=== PATIENT | male | born 1980 | race Hispanic/Latino ===

== ENCOUNTER 2016-12-21 21:43 | Inpatient (IN) | payer MEDICAID, OTHER ==
[2016-12-21 21:43] VITALS: BMI 20.3
--- NOTE | 2016-12-21 23:49 | C.PDOC ---
History Of Present Illness Patient, with a past medical history of anxiety, asthma, bipolar disorder, personality disorder, depression, and schizophrenia, presents to the ED complaining of suicidal ideation. Patient reports he used heroin today. He also admits to drinking 2 pints of alcohol prior to arrival. Patient denies chest pain, shortness of breath, nausea, or vomiting. Time Seen by Provider: 12/21/16 23:49 Chief Complaint (Nursing): Psychiatric Evaluation History Per: Patient History/Exam Limitations: intoxication Onset/Duration Of Symptoms: Other Current Symptoms Are (Timing): Still Present Suicide/Self Injury Attempted (Context): None Modifying Factor(s): Alcohol, Other (heroin) Severity: None Pain Scale Rating Of: 0 Associated Symptoms: Suicidal Thoughts Recent travel outside of the [place]: No Additional History Per: Patient Past Medical History Reviewed: Historical Data, Nursing Documentation, Vital Signs Vital Signs: Last Vital Signs Temp 98.1 F 12/22/16 12:43 Pulse 76 12/22/16 16:22 Resp 20 12/22/16 12:43 BP 116/76 12/22/16 16:22 Pulse Ox 95 12/22/16 12:43 - Medical History PMH: Anxiety, Asthma, Bipolar Disorder, Depression (with suicide attempt since childhood (attempted hanging)), Personality Disorder, Schizophrenia - [facility] Procedures ALCOHOL DETOXIFICATION (10/04/13) APPLICATION OF SPLINT (07/30/14) DETOXIFICATION SERVICES FOR SUBSTANCE ABUSE TREATMENT (08/11/16) GROUP APPLICATIONS SALES REPRESENTATIVE FOR SUBSTANCE ABUSE TREATMENT, PSYCHOEDUCATION (08/19/15) IMMOBILIZ/WOUND ATTN NEC (07/05/14) INDIVID PSYCHOTHERAP NEC (04/06/13) INJECT ANTIBIOTIC (05/20/05) INJECT/INFUSE NEC (12/18/14) OTHER GROUP THERAPY (04/06/13) PSYCHIA INTERV/EVAL NEC (06/27/14) PSYCHIAT DRUG THERAP NEC (09/29/12) Family History: States: No Known Family Hx - Social History Hx Tobacco Use: Yes Hx Alcohol Use: Yes Hx Substance Use: Yes - Immunization History Hx Tetanus Toxoid Vaccination: No Hx Influenza Vaccination: No Hx Pneumococcal Vaccination: No Review Of Systems Cardiovascular: Negative for: Chest Pain Respiratory: Negative for: Shortness of Breath Gastrointestinal: Negative for: Nausea, Vomiting Psych: Positive for: Suicidal ideation Physical Exam - Physical Exam Appears: Non-toxic, No Acute Distress Skin: Warm, Dry Head: Atraumatic, Normacephalic Neck: Supple Chest: Symmetrical Cardiovascular: Rhythm Regular Back: Normal Inspection Extremity: Normal ROM ED Course And Treatment - Laboratory Results Result Diagrams: 12/22/16 00:46 12/22/16 00:46 ECG: Interpreted By Me, Viewed By Me ECG Rhythm: Sinus Rhythm (94), Nonspecific Changes O2 Sat by Pulse Oximetry: 97 (room air) Pulse Ox Interpretation: Normal - Radiology CXR: Interpreted by Me, Viewed By Me CXR Interpretation: No: Infiltrates, Fracture, Pnemothorax Progress Note: Patient medically cleared for transfer to psychiatric facility Disposition Counseled Patient/Family Regarding: Studies Performed, Diagnosis - Disposition Disposition: HOSPITALIZED Disposition Time: 23:49 Condition: FAIR - Clinical Impression Clinical Impression: Alcohol abuse, Depression - Scribe Statement The provider has reviewed the documentation as recorded by the Scribe Melba Wilson Provider Attestation: All medical record entries made by the Scribe were at my direction and personally dictated by me. I have reviewed the chart and agree that the record accurately reflects my personal performance of the history, physical exam, medical decision making, and the department course for this patient. I have also personally directed, reviewed, and agree with the discharge instructions and disposition. Physician Patient Turnover Patient Signed Over To: Noman Jackson DO Handoff Comments: pending disposition/bed
[2016-12-22 00:54] LABS: BASO # 0.1 K/uL (0.0-0.2); BASO % 0.7 % (0.0-2.0); EOS % 0.4 % (0.0-4.0); HEMATOCRIT 46.7 % (35.0-51.0); LYMPH # 2.3 K/uL (1.0-4.3); LYMPH % 16.9 % (20.0-40.0); MEAN CELL VOLUME 96.9 fL (80.0-94.0); MEAN CORPUSCULAR HEMOGLOBIN 31.8 pg (27.0-31.0); MEAN CORPUSCULAR HGB CONC 32.8 g/dL (33.0-37.0); MEAN PLATELET VOLUME 7.3 fL (7.2-11.7); MONO # 0.9 K/uL (0.0-0.8); MONO % 6.9 % (0.0-10.0); RED CELL DISTRIBUTION WIDTH 15.2 % (11.5-14.5); WHITE BLOOD COUNT 13.7 K/uL (4.8-10.8)
[2016-12-22 01:06] LABS: CHLORIDE 100 mmol/L (98-107); POTASSIUM 3.9 mmol/L (3.6-5.2); SODIUM 142 mmol/L (132-148)
[2016-12-22 01:08] LABS: BILIRUBIN,TOTAL 0.2 mg/dL (0.2-1.3); CARBON DIOXIDE 27 mmol/L (22-30); GFR AFRICAN-AMERICAN > 60
[2016-12-22 01:09] LABS: ALB/GLOB RATIO 1.6 (1.0-2.1); ALKALINE PHOSPHATASE 61 U/L (38-126); ALT/SGPT 24 U/L (21-72); AST/SGOT 32 U/L (17-59); BLOOD UREA NITROGEN 17 mg/dL (9-20); CALCIUM 8.5 mg/dl (8.6-10.4); GLUCOSE,RANDOM 85 mg/dL (75-110); TOTAL PROTEIN 7.7 g/dL (6.3-8.3)
[2016-12-22 01:10] LABS: ALCOHOL SERUM 188 mg/dl (0-10)
[2016-12-22 03:47] LABS: RBC URINE 1 /hpf (0-3); URINE BILIRUBIN NEGATIVE (NEGATIVE); URINE BLOOD NEGATIVE (NEGATIVE); URINE COLOR Yellow (YELLOW); URINE GLUCOSE (UA) NORMAL (Normal); URINE KETONE TRACE mg/dL (NEGATIVE); URINE LEUKOCYTE ESTERASE NEG Leu/uL (Negative); URINE PROTEIN NEGATIVE (NEGATIVE); URINE UROBILINOGEN NORMAL mg/dL (0.2-1.0); WBC URINE 1 /hpf (0-5)
--- NOTE | 2016-12-22 09:43 | RAD ---
HISTORY: psych clearance COMPARISON: No prior. FINDINGS: LUNGS: No active pulmonary disease. PLEURA: No significant pleural effusion identified, no pneumothorax apparent. CARDIOVASCULAR: Normal. OSSEOUS STRUCTURES: No significant abnormalities. VISUALIZED UPPER ABDOMEN: Normal. OTHER FINDINGS: None. IMPRESSION: No active disease.
[2016-12-23] MEDS: Multiple Vitamins Tab PO SCH (09:53)
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
[2016-12-24] MEDS: Multiple Vitamins Tab PO SCH (10:20)
--- NOTE | 2016-12-24 13:03 | PCM.PYCHPN ---
Psychiatric Progress Note - Psychiatric Progress Note Patient seen today, length of contact: 15 min Patient Chief Complaint: I'm still feeling depressed Problems Identified/Issues Discussed: Patient seen and evaluated, chart reviewed and discussed with the nurse. As per the staff, patient still appears isolated, depressed and withdrawn. Patient still reports depressed mood and reports at times feelings of hopelessness or helplessness. He reports withdrawal symptoms including cramps, back pain, legs pain, nausea and sweating. He is asking for pain medications for the leg pain. He denies any auditory or visual hallucinations or any psychotic symptoms. Supportive therapy and psychoeducation were given. Medication Change: Yes (Start gabapentin) Medical Record Reviewed: Yes Mental Status Examination - Cognitive Function Orientation: Person, Place, Situation, Time Memory: Intact Attention: WNL Concentration: Poor Association: WNL Fund of Knowledge: Poor - Mood Mood: Depressed, Anxious - Affect Affect: Constricted, Depressed - Speech Speech: Soft - Formal Thought Process Formal Thought Process: No Impairment - Suicidal Ideation Suicidal Ideation: No - Homicidal Ideation Homicidal Ideation: No Goal/Treatment Plan - Goal/Treatment Plan Need for Continued Stay: Discharge may exacerbated symptoms, Severe functional impairment Progress Toward Problem(s) and Goals/Treatment Plan: Bipolar 1 disorder most recent episode depressed severe without psychotic features CBT Psychoeducation Supportive therapy, group therapy, individual therapy Paxil 10 mg by mouth daily Trazodone 50 mg by mouth daily at bedtime Gabapentin 100 mg by mouth 3 times a day Alcohol use disorder severe CBT Psychoeducation Supportive therapy, individual therapy Use [place] for abstinence Alcohol withdrawal uncomplicated CBT Psychoeducation Supportive therapy, individual therapy Librium when necessary Librium taper Folic acid/thiamine/multivitamin Opiate use disorder severe CBT Psychoeducation Supportive therapy, individual therapy Use [place] for abstinence Opioid withdrawal CBT Psychoeducation Supportive therapy, individual therapy Clonidine when necessary Methadone taper - Smoking Cessation Smoking Cessation Initiated: No
[2016-12-25] MEDS: Multiple Vitamins Tab PO SCH (09:46)
--- NOTE | 2016-12-25 10:32 | PCM.PYCHPN ---
Psychiatric Progress Note - Psychiatric Progress Note Patient seen today, length of contact: 15 min Patient Chief Complaint: I'm still feeling depressed Problems Identified/Issues Discussed: Patient is seen and evaluated. Chart reviewed and discussed with the nurse. Pt reports improved mood since yesterday. He reports feeling anxious on having less structure in his life after discharge. He also says that Neurontin has helped with his leg cramps and that his quality of sleep has improved and says that his appetite improved. Patient states that his detox symptoms have resolved requests to have his Librium and methadone discontinued by Wednesday. Patient denies suicidal and homicidal ideation, visual or auditory hallucinations or persecutory delusions. Patient will be going to an inpatient rehabilitation facility after discharge. He denies any medication side effects. Supportive therapy and psychoeducation were given. Medication Change: Yes (Increase gabapentin) Medical Record Reviewed: Yes Mental Status Examination - Cognitive Function Orientation: Person, Place, Situation, Time Memory: Intact Attention: WNL Concentration: Poor Association: WNL Fund of Knowledge: Poor - Mood Mood: Depressed, Anxious - Affect Affect: Constricted, Depressed - Speech Speech: Soft - Formal Thought Process Formal Thought Process: No Impairment - Suicidal Ideation Suicidal Ideation: No - Homicidal Ideation Homicidal Ideation: No Goal/Treatment Plan - Goal/Treatment Plan Need for Continued Stay: Discharge may exacerbated symptoms, Severe functional impairment Progress Toward Problem(s) and Goals/Treatment Plan: Bipolar 1 disorder most recent episode depressed severe without psychotic features CBT Psychoeducation Supportive therapy, group therapy, individual therapy Paxil 10 mg by mouth daily Trazodone 50 mg by mouth daily at bedtime Gabapentin 300 mg by mouth 3 times a day Alcohol use disorder severe CBT Psychoeducation Supportive therapy, individual therapy Use [place] for abstinence Alcohol withdrawal uncomplicated CBT Psychoeducation Supportive therapy, individual therapy Librium when necessary Librium taper Folic acid/thiamine/multivitamin Opiate use disorder severe CBT Psychoeducation Supportive therapy, individual therapy Use [place] for abstinence Opioid withdrawal CBT Psychoeducation Supportive therapy, individual therapy Clonidine when necessary Methadone taper
[2016-12-26 07:41] VITALS: BP 106/70; PULSE 65; RESP 20; TEMP 97.4; O2SAT 99
[2016-12-26] MEDS: Multiple Vitamins Tab PO SCH (09:12)
--- NOTE | 2017-01-07 13:09 | CARD ---
APPROVED REPORT EKG Measurement Heart [id number] <Conclusion> Normal sinus rhythm Normal ECG
== END 2016-12-26 13:00 | disposition home or self-care (01) | DRG 430 ==
LOC: C.ER 21:43 → C.9E 12-22 09:42 → C.5E 12-22 12:37
PROVIDERS: ADMIT Psychiatry & Neurology Psychiatry; ATTEND Psychiatry & Neurology Psychiatry
PROC: GZ3ZZZZ Medication Management (ICD-10-PCS; principal; 2016-12-22)
PROC: HZ91ZZZ Pharmacotherapy for Substance Abuse Treatment, Methadone Maintenance (ICD-10-PCS; 2016-12-22)
PROC: HZ96ZZZ Pharmacotherapy for Substance Abuse Treatment, Clonidine (ICD-10-PCS; 2016-12-22)
PROC: HZ99ZZZ Pharmacotherapy for Substance Abuse Treatment, Other Replacement Medication (ICD-10-PCS; 2016-12-22)
PROC: GZHZZZZ Group Psychotherapy (ICD-10-PCS; 2016-12-22)
PROC: GZ56ZZZ Individual Psychotherapy, Supportive (ICD-10-PCS; 2016-12-22)
DX: F31.4 Bipolar disorder, current episode depressed, severe, without psychotic features (principal); F11.20 Opioid dependence, uncomplicated; R45.851 Suicidal ideations; F10.230 Alcohol dependence with withdrawal, uncomplicated; F11.23 Opioid dependence with withdrawal; F14.10 Cocaine abuse, uncomplicated; F10.220 Alcohol dependence with intoxication, uncomplicated; Y90.6 Blood alcohol level of 120-199 mg/100 ml; F17.210 Nicotine dependence, cigarettes, uncomplicated; J45.909 Unspecified asthma, uncomplicated; F90.9 Attention-deficit hyperactivity disorder, unspecified type; Z91.5 Personal history of self-harm; Z59.0 Homelessness

== ENCOUNTER 2017-01-16 11:51 | Inpatient (IN) | payer MEDICAID, OTHER ==
[2017-01-16 11:52] VITALS: BMI 20.3
--- NOTE | 2017-01-16 12:01 | C.PDOC ---
History Of Present Illness 36 y/o male transferred to ED from [facility] for psychiatric admission. Pt was medically cleared at [facility], and accepted for transfer by our gerontological nurse practitioner psychiatrist. Patient complains of feeling depressed, and has suicidal ideation without specific plan. Patient has no physical complaints. Time Seen by Provider: 01/16/17 11:52 History Per: Patient History/Exam Limitations: no limitations Onset/Duration Of Symptoms: Gradual Current Symptoms Are (Timing): Still Present Suicide/Self Injury Attempted (Context): None Modifying Factor(s): None Associated Symptoms: Depression, Suicidal Thoughts Involuntary Hold By: Emergency Physician Past Medical History Reviewed: Historical Data, Nursing Documentation, Vital Signs Vital Signs: Last Vital Signs Temp 97.7 F 01/22/17 10:00 Pulse 78 01/22/17 10:00 Resp 18 01/22/17 10:00 BP 100/68 01/22/17 10:00 Pulse Ox 95 01/16/17 12:03 - Medical History PMH: Anxiety, Asthma, Bipolar Disorder, Depression (with suicide attempt since childhood (attempted hanging)), Hepatitis (C), Personality Disorder, Schizophrenia - [facility] Procedures ALCOHOL DETOXIFICATION (10/04/13) APPLICATION OF SPLINT (07/30/14) DETOXIFICATION SERVICES FOR SUBSTANCE ABUSE TREATMENT (08/11/16) GROUP FILTERING MACHINE TENDER HELPER FOR SUBSTANCE ABUSE TREATMENT, PSYCHOEDUCATION (08/19/15) GROUP PSYCHOTHERAPY (12/22/16) IMMOBILIZ/WOUND ATTN NEC (07/05/14) INDIVID PSYCHOTHERAP NEC (04/06/13) INDIVIDUAL PSYCHOTHERAPY, SUPPORTIVE (12/22/16) INJECT ANTIBIOTIC (05/20/05) INJECT/INFUSE NEC (12/18/14) MEDICATION MANAGEMENT (12/22/16) OTHER GROUP THERAPY (04/06/13) PHARMACOTHERAPY FOR SUBSTANCE ABUSE TREATMENT, CLONIDINE (12/22/16) PHARMACOTHERAPY FOR SUBSTANCE ABUSE, METHADONE MAINT (12/22/16) PHARMACOTHERAPY FOR SUBSTANCE ABUSE, OTH REPLACE MED (12/22/16) PSYCHIA INTERV/EVAL NEC (06/27/14) PSYCHIAT DRUG THERAP NEC (09/29/12) Family History: States: No Known Family Hx - Social History Hx Tobacco Use: Yes Hx Alcohol Use: Yes Hx Substance Use: Yes - Immunization History Hx Tetanus Toxoid Vaccination: No Hx Influenza Vaccination: No Hx Pneumococcal Vaccination: No Review Of Systems Except As Marked, All Systems Reviewed And Found Negative. Constitutional: Negative for: Fever, Chills Cardiovascular: Negative for: Chest Pain, Palpitations Respiratory: Negative for: Cough, Shortness of Breath Gastrointestinal: Negative for: Nausea, Vomiting, Abdominal Pain, Diarrhea Neurological: Negative for: Headache, Dizziness Psych: Positive for: Depression, Suicidal ideation Physical Exam - Physical Exam Appears: Well, Non-toxic, No Acute Distress Skin: Normal Color, Warm, Dry Head: Normacephalic Eye(s): bilateral: Normal Inspection Oral Mucosa: Moist Cardiovascular: Rhythm Regular Respiratory: Normal Breath Sounds, No Rales, No Rhonchi, No Wheezing Gastrointestinal/Abdominal: Normal Exam, Bowel Sounds, Soft, No Tenderness Extremity: Normal ROM Neurological/Psych: Oriented x3 ED Course And Treatment O2 Sat by Pulse Oximetry: 95 (RA) Pulse Ox Interpretation: Normal Progress Note: Patient admitted under Dr. Bates' service for depression. Disposition - Disposition Disposition: HOSPITALIZED Disposition Time: 12:01 Condition: STABLE - Clinical Impression Clinical Impression: Depression - Scribe Statement The provider has reviewed the documentation as recorded by the Symone Wilson Provider Attestation: All medical record entries made by the Symone were at my direction and personally dictated by me. I have reviewed the chart and agree that the record accurately reflects my personal performance of the history, physical exam, medical decision making, and the department course for this patient. I have also personally directed, reviewed, and agree with the discharge instructions and disposition. Decision To Admit - Pt Status Changed To: Hospital Disposition Of: Inpatient - Admit Certification Admit to Inpatient:: After my assessment, the patient will require hospitalization for at least two midnights. This is because of the severity of symptoms shown, intensity of services needed, and/or the medical risk in this patient being treated as an outpatient. - InPatient: Physician Admission Certification: I certify that this patient requires 2 or more midnights of care for the following reason:: see notes - . Bed Request Type: Psychiatry Admitting Physician: Anne Marie Bates Patient Diagnosis: Depression
[2017-01-16 12:04] VITALS: O2SAT 95
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
--- NOTE | 2017-01-18 10:02 | PCM.PYCHPN ---
Psychiatric Progress Note - Psychiatric Progress Note Patient seen today, length of contact: 16 min Patient Chief Complaint: I was feeling depressed and irritable Problems Identified/Issues Discussed: Patient seen and evaluated, chart reviewed and discussed with the nurse. Patient reports irritable and agitated mood. He reports withdrawal symptoms including nausea, headaches, cramps and sweating. He reports depressed mood and at times feelings of hopelessness and helplessness. He is taking medication and denied any side effects. Supportive therapy and psychoeducation were given. Medication Change: Yes (Librium taper, methadone taper) Medical Record Reviewed: Yes Mental Status Examination - Cognitive Function Orientation: Person, Place, Situation, Time Memory: Intact Attention: WNL Concentration: Poor Association: WNL Fund of Knowledge: Poor - Mood Mood: Depressed, Anxious - Affect Affect: Constricted - Speech Speech: Soft - Formal Thought Process Formal Thought Process: No Impairment - Suicidal Ideation Suicidal Ideation: No - Homicidal Ideation Homicidal Ideation: No Goal/Treatment Plan - Goal/Treatment Plan Need for Continued Stay: Discharge may exacerbated symptoms, Severe functional impairment Progress Toward Problem(s) and Goals/Treatment Plan: Bipolar 1 disorder most recent episode mixed severe without psychotic features CBT Psychoeducation Supportive therapy, group therapy, individual therapy Sertraline 50 mg by mouth daily Seroquel 50 mg by mouth HS Gabapentin 100 mg PO TID Trazodone 50 mg PO QHS Alcohol use disorder severe CBT Psychoeducation Supportive therapy, individual therapy Use [place] for abstinence Alcohol withdrawal uncomplicated CBT Psychoeducation Supportive therapy, individual therapy Librium when necessary Librium taper Folic acid/thiamine/multivitamin Opiate use disorder severe CBT Psychoeducation Supportive therapy, individual therapy Use [place] for abstinence Opioid withdrawal CBT Psychoeducation Supportive therapy, individual therapy Clonidine when necessary Methadone taper - Smoking Cessation Smoking Cessation Initiated: No
[2017-01-19] MEDS ORDERED: Pneumococcal 23-Valent Vaccine IM ONE (10:00)
--- NOTE | 2017-01-19 10:31 | PCM.PYCHPN ---
Psychiatric Progress Note - Psychiatric Progress Note Patient seen today, length of contact: 16 min Patient Chief Complaint: I was feeling depressed Problems Identified/Issues Discussed: Patient seen and evaluated, chart reviewed and discussed with the nurse. As per staff patient remained irritable and agitated. He reports anxiety and irritability. He still reports withdrawal symptoms including headaches, cramps and sweating. He reports that he wants to change himself and wants to go to an inpatient rehabilitation after discharge. He is taking medication and denied any side effects. Supportive therapy and psychoeducation were given. Medication Change: Yes (Librium taper, methadone taper, start trileptal) Medical Record Reviewed: Yes Mental Status Examination - Cognitive Function Orientation: Person, Place, Situation, Time Memory: Intact Attention: WNL Concentration: Poor Association: WNL Fund of Knowledge: Poor - Mood Mood: Depressed, Anxious - Affect Affect: Constricted - Speech Speech: Soft - Formal Thought Process Formal Thought Process: No Impairment - Suicidal Ideation Suicidal Ideation: No - Homicidal Ideation Homicidal Ideation: No Goal/Treatment Plan - Goal/Treatment Plan Need for Continued Stay: Discharge may exacerbated symptoms, Severe functional impairment Progress Toward Problem(s) and Goals/Treatment Plan: Bipolar 1 disorder most recent episode mixed severe without psychotic features CBT Psychoeducation Supportive therapy, group therapy, individual therapy d/c Sertraline 50 mg by mouth daily Seroquel 50 mg by mouth HS Gabapentin 100 mg PO TID Trazodone 50 mg PO QHS Start Trileptal 150 mg by mouth twice a day Alcohol use disorder severe CBT Psychoeducation Supportive therapy, individual therapy Use [place] for abstinence Alcohol withdrawal uncomplicated CBT Psychoeducation Supportive therapy, individual therapy Librium when necessary Librium taper Folic acid/thiamine/multivitamin Opiate use disorder severe CBT Psychoeducation Supportive therapy, individual therapy Use [place] for abstinence Opioid withdrawal CBT Psychoeducation Supportive therapy, individual therapy Clonidine when necessary Methadone taper - Smoking Cessation Smoking Cessation Initiated: No
--- NOTE | 2017-01-20 14:10 | PCM.PYCHPN ---
Psychiatric Progress Note - Psychiatric Progress Note Patient seen today, length of contact: 16 min Patient Chief Complaint: I was feeling depressed Problems Identified/Issues Discussed: Patient seen and evaluated, chart reviewed and discussed with the nurse. As per staff patient remained irritable and agitated. He reports anxiety and irritability. He still reports withdrawal symptoms including headaches, cramps and sweating. He reports that he wants to change himself and wants to go to an inpatient rehabilitation after discharge. He is taking medication and denied any side effects. Supportive therapy and psychoeducation were given. Medication Change: Yes (Librium taper, methadone taper, start trileptal) Medical Record Reviewed: Yes Mental Status Examination - Cognitive Function Orientation: Person, Place, Situation, Time Memory: Intact Attention: WNL Concentration: Poor Association: WNL Fund of Knowledge: Poor - Mood Mood: Depressed, Anxious - Affect Affect: Constricted - Speech Speech: Soft - Formal Thought Process Formal Thought Process: No Impairment - Suicidal Ideation Suicidal Ideation: No - Homicidal Ideation Homicidal Ideation: No Goal/Treatment Plan - Goal/Treatment Plan Need for Continued Stay: Discharge may exacerbated symptoms, Severe functional impairment Progress Toward Problem(s) and Goals/Treatment Plan: Bipolar 1 disorder most recent episode mixed severe without psychotic features CBT Psychoeducation Supportive therapy, group therapy, individual therapy d/c Sertraline 50 mg by mouth daily Seroquel 50 mg by mouth HS Gabapentin 100 mg PO TID Trazodone 50 mg PO QHS Start Trileptal 150 mg by mouth twice a day Alcohol use disorder severe CBT Psychoeducation Supportive therapy, individual therapy Use [place] for abstinence Alcohol withdrawal uncomplicated CBT Psychoeducation Supportive therapy, individual therapy Librium when necessary Librium taper Folic acid/thiamine/multivitamin Opiate use disorder severe CBT Psychoeducation Supportive therapy, individual therapy Use [place] for abstinence Opioid withdrawal CBT Psychoeducation Supportive therapy, individual therapy Clonidine when necessary Methadone taper
[2017-01-20] MEDS ORDERED: DiphenhydrAMINE 50 mg/ml Inj IM PRN (17:11)
--- NOTE | 2017-01-21 10:18 | PCM.PYCHPN ---
Psychiatric Progress Note - Psychiatric Progress Note Patient seen today, length of contact: 16 min Patient Chief Complaint: "I'm not too good. I'm hearing voices." Problems Identified/Issues Discussed: Patient seen and evaluated today, chart reviewed and discussed with the nurse. Patient states that he started hearing voices yesterday to harm himself. "They were telling me to punch a hole in the light and then touch the inside with wet fingers." Patient denies any homicidal ideation. Patient states he is still feeling anxious, but denies depression. Patient states that despite feeling anxious, he is ready to be discharged tomorrow to [facility]. He is taking medications and denies any side effects. Medication Change: Yes (start haldol, methadone taper, increase trileptal) Medical Record Reviewed: Yes Mental Status Examination - Cognitive Function Orientation: Person, Place, Situation, Time Memory: Intact Attention: WNL Concentration: Poor Association: WNL Fund of Knowledge: Poor - Mood Mood: Depressed, Anxious - Affect Affect: Constricted - Speech Speech: Soft - Formal Thought Process Formal Thought Process: Hallucinations, Paranoia, Flight of ideas - Suicidal Ideation Suicidal Ideation: No - Homicidal Ideation Homicidal Ideation: No Goal/Treatment Plan - Goal/Treatment Plan Need for Continued Stay: Discharge may exacerbated symptoms, Severe functional impairment Progress Toward Problem(s) and Goals/Treatment Plan: Bipolar 1 disorder most recent episode mixed severe without psychotic features CBT Psychoeducation Supportive therapy, group therapy, individual therapy Haldol 5 mg PO BID Seroquel 50 mg by mouth HS d/c Gabapentin 100 mg PO TID Trazodone 50 mg PO QHS Increase Trileptal 00 mg by mouth twice a day Alcohol use disorder severe CBT Psychoeducation Supportive therapy, individual therapy Use [place] for abstinence Alcohol withdrawal uncomplicated CBT Psychoeducation Supportive therapy, individual therapy Librium when necessary Librium taper Folic acid/thiamine/multivitamin Opiate use disorder severe CBT Psychoeducation Supportive therapy, individual therapy Use [place] for abstinence Opioid withdrawal CBT Psychoeducation Supportive therapy, individual therapy Clonidine when necessary Methadone taper - Smoking Cessation Smoking Cessation Initiated: Yes
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
[2017-01-22 14:08] VITALS: BP 100/68; PULSE 78; RESP 18; TEMP 97.7
== END 2017-01-22 12:10 | disposition home or self-care (01) | DRG 430 ==
LOC: C.ER 11:51 → C.5E 12:01
PROVIDERS: ADMIT Psychiatry & Neurology Psychiatry; ATTEND Psychiatry & Neurology Psychiatry
DX: F31.63 Bipolar disorder, current episode mixed, severe, without psychotic features (principal); R45.851 Suicidal ideations; F11.23 Opioid dependence with withdrawal; F10.239 Alcohol dependence with withdrawal, unspecified; F17.210 Nicotine dependence, cigarettes, uncomplicated; Z62.810 Personal history of physical and sexual abuse in childhood; Z59.0 Homelessness; Z91.5 Personal history of self-harm; Z62.22 Institutional upbringing

== ENCOUNTER 2017-07-28 12:19 | Emergency (ER) | payer MEDICAID, OTHER ==
[2017-07-28 12:19] VITALS: BMI 22.9
[2017-07-28 13:08] LABS: BASO % 0.5 % (0.0-2.0); EOS % 0.5 % (0.0-4.0); HEMATOCRIT 39.1 % (35.0-51.0); LYMPH # 1.2 K/uL (1.0-4.3); LYMPH % 18.1 % (20.0-40.0); MEAN CELL VOLUME 94.2 fL (80.0-94.0); MEAN CORPUSCULAR HEMOGLOBIN 31.8 pg (27.0-31.0); MEAN CORPUSCULAR HGB CONC 33.8 g/dL (33.0-37.0); MEAN PLATELET VOLUME 7.4 fL (7.2-11.7); MONO # 0.5 K/uL (0.0-0.8); MONO % 6.9 % (0.0-10.0); RED CELL DISTRIBUTION WIDTH 16.1 % (11.5-14.5); WHITE BLOOD COUNT 6.6 K/uL (4.8-10.8)
[2017-07-28 13:12] LABS: RBC URINE < 1 /hpf (0-3); URINE BILIRUBIN NEGATIVE (NEGATIVE); URINE BLOOD NEGATIVE (NEGATIVE); URINE COLOR Colorless (YELLOW); URINE GLUCOSE (UA) NORMAL (Normal); URINE KETONE NEGATIVE (NEGATIVE); URINE LEUKOCYTE ESTERASE NEG Leu/uL (Negative); URINE PROTEIN NEGATIVE (NEGATIVE); URINE UROBILINOGEN NORMAL mg/dL (0.2-1.0); WBC URINE < 1 /hpf (0-5)
[2017-07-28 13:40] LABS: ALB/GLOB RATIO 1.2 (1.0-2.1); ALKALINE PHOSPHATASE 75 U/L (38-126); ALT/SGPT 63 U/L (21-72); AST/SGOT 47 U/L (17-59); BILIRUBIN,TOTAL 0.4 mg/dL (0.2-1.3); BLOOD UREA NITROGEN 8 mg/dL (9-20); CALCIUM 8.2 mg/dl (8.6-10.4); CARBON DIOXIDE 26 mmol/L (22-30); CHLORIDE 103 mmol/L (98-107); GFR AFRICAN-AMERICAN > 60; GLUCOSE,RANDOM 109 mg/dL (75-110); POTASSIUM 3.2 mmol/L (3.6-5.2); SODIUM 135 mmol/L (132-148); TOTAL PROTEIN 7.3 g/dL (6.3-8.3)
--- NOTE | 2017-07-28 14:18 | C.PDOC ---
History Of Present Illness 37 y/o male, with PMHx of schizophrenia, bipolar disorder, anxiety (non- compliant with meds) is brought to ED by significant other for substance abuse. Pt admits to drinking alcohol prior to arrival. Pt has been seen several times at other ED's including [facility] for alcohol intoxication. Denies SI, HI , or any active physical complaints at this time. Time Seen by Provider: 07/28/17 12:45 Chief Complaint (Nursing): Substance Abuse History Per: Patient History/Exam Limitations: no limitations Past Medical History Reviewed: Historical Data, Nursing Documentation, Vital Signs Vital Signs: Last Vital Signs Temp 97.7 F 07/28/17 16:52 Pulse 92 H 07/28/17 16:52 Resp 16 07/28/17 16:52 BP 121/69 07/28/17 16:52 Pulse Ox 95 07/28/17 16:52 - Medical History PMH: Anxiety, Asthma, Bipolar Disorder, Bronchitis, Depression (with suicide attempt since childhood (attempted hanging)), Personality Disorder, Schizophrenia Denies: Diabetes, Hepatitis, HIV, HTN, Chronic Kidney Disease, Seizures, Sexually Transmitted Disease - [facility] Procedures ALCOHOL DETOXIFICATION (10/04/13) APPLICATION OF SPLINT (07/30/14) DETOXIFICATION SERVICES FOR SUBSTANCE ABUSE TREATMENT (08/11/16) GROUP FIELD NATURALIST FOR SUBSTANCE ABUSE TREATMENT, PSYCHOEDUCATION (08/19/15) GROUP PSYCHOTHERAPY (02/13/17) IMMOBILIZ/WOUND ATTN NEC (07/05/14) INDIVID PSYCHOTHERAP NEC (04/06/13) INDIVIDUAL PSYCHOTHERAPY, SUPPORTIVE (12/22/16) INJECT ANTIBIOTIC (05/20/05) INJECT/INFUSE NEC (12/18/14) MEDICATION MANAGEMENT (12/22/16) OTHER GROUP THERAPY (04/06/13) PHARMACOTHERAPY FOR SUBSTANCE ABUSE TREATMENT, CLONIDINE (12/22/16) PHARMACOTHERAPY FOR SUBSTANCE ABUSE, METHADONE MAINT (12/22/16) PHARMACOTHERAPY FOR SUBSTANCE ABUSE, OTH REPLACE MED (12/22/16) PSYCHIA INTERV/EVAL NEC (06/27/14) PSYCHIAT DRUG THERAP NEC (09/29/12) Family History: States: Unknown Family Hx - Social History Hx Tobacco Use: Yes Hx Alcohol Use: Yes (ETOH) Hx Substance Use: Yes - Immunization History Hx Tetanus Toxoid Vaccination: No Hx Influenza Vaccination: No Hx Pneumococcal Vaccination: No Review Of Systems Except As Marked, All Systems Reviewed And Found Negative. Constitutional: Negative for: Fever, Chills Cardiovascular: Negative for: Chest Pain, Palpitations Respiratory: Negative for: Shortness of Breath Physical Exam - Physical Exam Appears: Non-toxic, No Acute Distress, Other (thin male with multiple tattos, EtOH on breath) Skin: Normal Color, Warm, Dry Head: Atraumatic, Normacephalic Eye(s): bilateral: Normal Inspection Cardiovascular: Rhythm Regular, No Murmur Respiratory: Normal Breath Sounds, No Rales, No Rhonchi, No Wheezing Gastrointestinal/Abdominal: Soft, No Tenderness Extremity: Normal ROM Neurological/Psych: Oriented x3, Normal Speech ED Course And Treatment - Laboratory Results Result Diagrams: 07/28/17 13:02 07/28/17 13:02 Lab Interpretation: Abnormal (etoh 329) O2 Sat by Pulse Oximetry: 97 Pulse Ox Interpretation: Normal Progress Note: Blood work, UA ordered and reviewed. Librium 50 mg x 2, though pt increasingly agitated, disruptive, argumentative, and adamantly refuses psych eval and admission. d/w Crisis, no detox beds available and as pt not SI/ HI, pt is not appropriate for psych inpt eval. Extensive failed attempts for pt to stay for inpt eval, even Medical, pt adamantly refuses. Reevaluation Time: 18:11 Medical Decision Making Medical Decision Making: persistent alcoholism Undertreated Schizo/Bipolar (?) refuses tx/meds. Disposition Doctor Will See Patient In The: Office Counseled Patient/Family Regarding: Studies Performed, Diagnosis - Disposition Disposition: HOME/ ROUTINE Disposition Time: 18:14 Condition: GOOD Forms: [facility] ([place]) - Clinical Impression Clinical Impression: Alcohol abuse - Scribe Statement The provider has reviewed the documentation as recorded by the Scribe Asad Wilson All medical record entries made by the Scribe were at my direction and personally dictated by me. I have reviewed the chart and agree that the record accurately reflects my personal performance of the history, physical exam, medical decision making, and the department course for this patient. I have also personally directed, reviewed, and agree with the discharge instructions and disposition.
[2017-07-28 14:38] LABS: ALCOHOL SERUM 329 mg/dl (0-10)
[2017-07-28 16:52] VITALS: BP 121/69; PULSE 92; RESP 16; TEMP 97.7
[2017-07-28 18:14] VITALS: O2SAT 97
== END 2017-07-28 18:16 | disposition home or self-care (01) ==
LOC: C.ER 12:19
DX: F10.10 Alcohol abuse, uncomplicated (principal); Y90.8 Blood alcohol level of 240 mg/100 ml or more

== ENCOUNTER 2017-12-26 11:37 | Emergency (ER) | payer OTHER ==
[2017-12-26 11:37] VITALS: BMI 19.9
[2017-12-26 12:30] LABS: BASO % 0.6 % (0.0-2.0); EOS # 0.1 K/uL (0.0-0.7); EOS % 0.9 % (0.0-4.0); HEMOGLOBIN 17.8 g/dL (12.0-18.0); LYMPH # 2.6 K/uL (1.0-4.3); LYMPH % 40.6 % (20.0-40.0); MEAN CELL VOLUME 94.7 fL (80.0-94.0); MEAN CORPUSCULAR HEMOGLOBIN 33.1 pg (27.0-31.0); MEAN CORPUSCULAR HGB CONC 34.9 g/dL (33.0-37.0); MEAN PLATELET VOLUME 7.2 fL (7.2-11.7); MONO # 0.5 K/uL (0.0-0.8); MONO % 7.9 % (0.0-10.0); NEUT # 3.2 K/uL (1.8-7.0); NRBC % 0.1 % (0.0-2.0); RBC 5.38 Mil/uL (4.40-5.90); RED CELL DISTRIBUTION WIDTH 15.6 % (11.5-14.5); WHITE BLOOD COUNT 6.3 K/uL (4.8-10.8)
[2017-12-26 12:44] LABS: ALB/GLOB RATIO 1.2 (1.0-2.1); ALT/SGPT 14 U/L (21-72); AST/SGOT 21 U/L (17-59); BLOOD UREA NITROGEN 6 mg/dL (9-20); CALCIUM 9.3 mg/dl (8.6-10.4); GFR AFRICAN-AMERICAN > 60; GFR NON-AFRICAN AMERICAN > 60
[2017-12-26 12:51] LABS: URINE BILIRUBIN NEGATIVE (NEGATIVE); URINE BLOOD NEGATIVE (NEGATIVE); URINE CLARITY Hazy (Clear); URINE COLOR Yellow (YELLOW); URINE GLUCOSE (UA) NORMAL (Normal); URINE LEUKOCYTE ESTERASE NEG Leu/uL (Negative); URINE PROTEIN NEGATIVE (NEGATIVE); URINE UROBILINOGEN NORMAL mg/dL (0.2-1.0)
[2017-12-26 12:58] LABS: BARBITURATES, UR NEGATIVE (NEGATIVE); BENZODIAZEPINES, UR NEGATIVE (NEGATIVE); OPIATES, UR NEGATIVE (NEGATIVE); PHENCYCLIDINE, UR NEGATIVE (NEGATIVE)
[2017-12-26 13:33] LABS: ACETAMINOPHEN < 10.0 ug/mL (10.0-30.0); SALICYLATE < 1.0 mg/dL 1
--- NOTE | 2017-12-26 14:41 | C.PDOC ---
History Of Present Illness 37-year-old male, presents to the emergency department with complaints of suicidal ideation. Patient states he took 20-30 tabs of Klonopin last night in an attempt to commit suicide. States "life isn't fair." Patient notes he drinks occasionally, and smokes Marijuana. Denies vomiting/fever, chest pain, shortness of breath, rashes, or any other associated symptoms. No other complaints at this time. Time Seen by Provider: 12/26/17 12:14 Chief Complaint (Nursing): Psychiatric Evaluation History Per: Patient History/Exam Limitations: no limitations Past Medical History Reviewed: Historical Data, Nursing Documentation, Vital Signs Vital Signs: Last Vital Signs Temp 97.4 F L 12/26/17 11:51 Pulse 88 12/26/17 18:12 Resp 18 12/26/17 18:12 BP 129/81 12/26/17 18:12 Pulse Ox 98 12/26/17 18:43 - Medical History PMH: Anxiety, Asthma, Bipolar Disorder, Bronchitis, Depression (with suicide attempt since childhood (attempted hanging)), Personality Disorder, Schizophrenia - [facility] Procedures ALCOHOL DETOXIFICATION (10/04/13) APPLICATION OF SPLINT (07/30/14) DETOXIFICATION SERVICES FOR SUBSTANCE ABUSE TREATMENT (08/11/16) GROUP [place] FOR SUBSTANCE ABUSE TREATMENT, PSYCHOEDUCATION (08/19/15) GROUP PSYCHOTHERAPY (02/13/17) IMMOBILIZ/WOUND ATTN NEC (07/05/14) INDIVID PSYCHOTHERAP NEC (04/06/13) INDIVIDUAL PSYCHOTHERAPY, SUPPORTIVE (12/22/16) INJECT ANTIBIOTIC (05/20/05) INJECT/INFUSE NEC (12/18/14) MEDICATION MANAGEMENT (12/22/16) OTHER GROUP THERAPY (04/06/13) PHARMACOTHERAPY FOR SUBSTANCE ABUSE TREATMENT, CLONIDINE (12/22/16) PHARMACOTHERAPY FOR SUBSTANCE ABUSE, METHADONE MAINT (12/22/16) PHARMACOTHERAPY FOR SUBSTANCE ABUSE, OTH REPLACE MED (12/22/16) PSYCHIA INTERV/EVAL NEC (06/27/14) PSYCHIAT DRUG THERAP NEC (09/29/12) Family History: States: No Known Family Hx - Social History Hx Tobacco Use: Yes Hx Alcohol Use: Yes (ETOH) Hx Substance Use: Yes - Immunization History Hx Tetanus Toxoid Vaccination: No Hx Influenza Vaccination: No Hx Pneumococcal Vaccination: No Review Of Systems Constitutional: Negative for: Fever Cardiovascular: Negative for: Chest Pain, Palpitations Respiratory: Negative for: Shortness of Breath Gastrointestinal: Negative for: Nausea, Vomiting, Abdominal Pain, Diarrhea Musculoskeletal: Negative for: Back Pain Physical Exam - Physical Exam Appears: Non-toxic, No Acute Distress Skin: Normal Color, Warm, Dry, No Rash Head: Normacephalic Eye(s): bilateral: PERRL Nose: Normal Oral Mucosa: Moist Lips: Normal Appearing Neck: Normal ROM Chest: Symmetrical Cardiovascular: Rhythm Regular, No Murmur Respiratory: Normal Breath Sounds, No Accessory Muscle Use Gastrointestinal/Abdominal: Soft, No Tenderness Extremity: Normal ROM, No Deformity, No Swelling Neurological/Psych: Oriented x3, Normal Speech ED Course And Treatment - Laboratory Results Result Diagrams: 12/26/17 12:25 12/26/17 12:25 ECG: Interpreted By Me, Viewed By Me ECG Rhythm: Sinus Rhythm (Normal intervals. Normal axis) ECG Interpretation: No Acute Changes Rate From EC O2 Sat by Pulse Oximetry: 98 (RA) Pulse Ox Interpretation: Normal - Radiology CXR: Interpreted by Me, Viewed By Me CXR Interpretation: Yes: No Acute Disease Medical Decision Making Medical Decision Making: Plan: * Labs * UDS * UA * Reassess and Disposition Medically cleared for crisis evaluation Disposition Discussed With : shey - Disposition Disposition: Trans to Other Acute Care Hosp Disposition Time: 19:00 Condition: FAIR Forms: [facility] (Greek) - Clinical Impression Clinical Impression: Depression - Scribe Statement The provider has reviewed the documentation as recorded by the Scribe (Gabby Reis) All medical record entries made by the Scribe were at my direction and personally dictated by me. I have reviewed the chart and agree that the record accurately reflects my personal performance of the history, physical exam, medical decision making, and the department course for this patient. I have also personally directed, reviewed, and agree with the discharge instructions and disposition. Physician Patient Turnover Patient Signed Over To: Mario Abraham Handoff Comments: pending transfer
--- NOTE | 2017-12-26 17:12 | RAD ---
HISTORY: Crisis COMPARISON: Comparison chest 12/22/2016 FINDINGS: LUNGS: No focal consolidation. . Questionable mild fibrosis/ upper lobe versus artifact related to costal cartilage 1st rib PLEURA: No significant pleural effusion identified, no pneumothorax apparent. CARDIOVASCULAR: Normal. OSSEOUS STRUCTURES: No significant abnormalities. VISUALIZED UPPER ABDOMEN: Normal. OTHER FINDINGS: None. IMPRESSION: No acute consolidation. Questionable fibrosis -scarring right upper lobe versus artifact related to costal cartilage 1st rib
[2017-12-26 18:13] VITALS: RESP 18
[2017-12-26 19:06] VITALS: BP 130/76; PULSE 92; TEMP 98.1; O2SAT 97
--- NOTE | 2017-12-29 08:45 | CARD ---
APPROVED REPORT EKG Measurement Heart [id number] <Conclusion> Normal sinus rhythm Incomplete right bundle branch block Borderline ECG
== END 2017-12-26 19:39 | disposition short-term general hospital (02) ==
LOC: C.ER 11:37
DX: F32.9 Major depressive disorder, single episode, unspecified (principal)

== ENCOUNTER 2018-01-09 22:51 | Inpatient (IN) | payer MEDICAID, OTHER ==
[2018-01-09 22:51] VITALS: BMI 21.7
[2018-01-09 23:23] LABS: BASO % 0.7 % (0.0-2.0); EOS # 0.1 K/uL (0.0-0.7); EOS % 2.2 % (0.0-4.0); HEMOGLOBIN 13.2 g/dL (12.0-18.0); LYMPH % 30.3 % (20.0-40.0); MEAN CELL VOLUME 94.9 fL (80.0-94.0); MEAN CORPUSCULAR HEMOGLOBIN 33.2 pg (27.0-31.0); MEAN PLATELET VOLUME 7.2 fL (7.2-11.7); MONO # 0.9 K/uL (0.0-0.8); MONO % 13.8 % (0.0-10.0); NEUT # 3.5 K/uL (1.8-7.0); RBC 3.98 Mil/uL (4.40-5.90); RED CELL DISTRIBUTION WIDTH 15.4 % (11.5-14.5); WHITE BLOOD COUNT 6.6 K/uL (4.8-10.8)
--- NOTE | 2018-01-09 23:23 | C.PDOC ---
History Of Present Illness 37 y/o male presents to ED for complaints of trying to kill himself by drug overdose. Patient states he is "depressed because it is mother's day and he does not have a mother". Patient states he took many medications including seroquel, wellbutrin, vistaril, remeron, and gabapentin about half an hour ago. Patient reports he has depression and tried to kill himself in the past by over dosing. Time Seen by Provider: 01/09/18 23:05 Chief Complaint (Nursing): Psychiatric Evaluation History Per: Patient History/Exam Limitations: no limitations Onset/Duration Of Symptoms: Mins (30) Current Symptoms Are (Timing): Still Present Suicide/Self Injury Attempted (Context): None Modifying Factor(s): Other (seroquel, wellbutrin, vistaril, remeron, and gabapentin) Severity: None Associated Symptoms: Suicidal Thoughts Involuntary Hold By: None Recent travel outside of the [place]: No Past Medical History Reviewed: Historical Data, Nursing Documentation, Vital Signs Vital Signs: Last Vital Signs Temp 98.3 F 01/09/18 23:07 Pulse 116 H 01/09/18 23:57 Resp 20 01/09/18 23:57 BP 116/65 01/09/18 23:57 Pulse Ox 98 01/09/18 23:57 - Medical History PMH: Anxiety, Asthma, Bipolar Disorder, Bronchitis, Depression (with suicide attempt since childhood (attempted hanging)), Personality Disorder, Schizophrenia - [facility] Procedures ALCOHOL DETOXIFICATION (10/04/13) APPLICATION OF SPLINT (07/30/14) DETOXIFICATION SERVICES FOR SUBSTANCE ABUSE TREATMENT (08/11/16) GROUP FREIGHT CAR CLE[employer]ER FOR SUBSTANCE ABUSE TREATMENT, PSYCHOEDUCATION (08/19/15) GROUP PSYCHOTHERAPY (02/13/17) IMMOBILIZ/WOUND ATTN NEC (07/05/14) INDIVID PSYCHOTHERAP NEC (04/06/13) INDIVIDUAL PSYCHOTHERAPY, SUPPORTIVE (12/22/16) INJECT ANTIBIOTIC (05/20/05) INJECT/INFUSE NEC (12/18/14) MEDICATION MANAGEMENT (12/26/17) OTHER GROUP THERAPY (04/06/13) PHARMACOTHERAPY FOR SUBSTANCE ABUSE TREATMENT, CLONIDINE (12/22/16) PHARMACOTHERAPY FOR SUBSTANCE ABUSE, METHADONE MAINT (12/22/16) PHARMACOTHERAPY FOR SUBSTANCE ABUSE, OTH REPLACE MED (12/22/16) PSYCHIA INTERV/EVAL NEC (06/27/14) PSYCHIAT DRUG THERAP NEC (09/29/12) Family History: States: Unknown Family Hx - Social History Hx Tobacco Use: Yes Hx Alcohol Use: Yes Hx Substance Use: Yes - Immunization History Hx Tetanus Toxoid Vaccination: No Hx Influenza Vaccination: No Hx Pneumococcal Vaccination: No Review Of Systems Constitutional: Negative for: Fever, Chills Cardiovascular: Negative for: Chest Pain Gastrointestinal: Negative for: Nausea, Vomiting, Abdominal Pain, Diarrhea Skin: Negative for: Rash Neurological: Negative for: Weakness, Numbness Psych: Positive for: Depression, Suicidal ideation Physical Exam - Physical Exam Appears: Non-toxic, Other (lethargic; Slurred speech ) Skin: Warm, Dry Head: Normacephalic Eye(s): bilateral: Normal Inspection, PERRL, EOMI Oral Mucosa: Moist Neck: Supple Chest: Symmetrical, No Tenderness Cardiovascular: Rhythm Regular (Tachycardic) Respiratory: Normal Breath Sounds, No Decreased Breath Sounds, No Rales, No Rhonchi, No Wheezing Gastrointestinal/Abdominal: Soft, No Tenderness, No Distention, No Guarding, No Rebound Extremity: Normal ROM, No Pedal Edema, No Deformity Extremity: Bilateral: Normal Color And Temperature, Normal ROM Neurological/Psych: Oriented x3, No Normal Speech, No Normal Cognition, Normal Motor, Normal Sensation, Slow To Respond With Command Gait: Unsteady ED Course And Treatment - Laboratory Results Result Diagrams: 01/09/18 23:17 01/09/18 23:17 Lab Interpretation: No Acute Changes ECG: Interpreted By Mt ECG Rhythm: Sinus Rhythm, R BBB (incomplete), Nonspecific Changes (QTc 476) ECG Interpretation: No Acute Changes O2 Sat by Pulse Oximetry: 93 (RA) Pulse Ox Interpretation: Abnormal Progress Note: Case discussed with Poison Control. Patient to be monitored and supported with IV fluids. End Tidal CO2 monitoring initiated. - Physician Consult Information Outcome Of Conversation: Case discussed with Dr Park. Patient to be admitted to ICU for monitoring. Medical Decision Making Medical Decision Making: Ordered Blood work and Urinalysis. Called Poison Control and crisis is notified. EKG: - Normal sinus rhythm at 89 bpm - Incomplete RBBB Disposition - Disposition Disposition: HOSPITALIZED Disposition Time: 00:17 Condition: CRITICAL - POA Present On Arrival: None - Clinical Impression Clinical Impression: Alcohol intoxication, Suicide attempt by drug ingestion - Scribe Statement The provider has reviewed the documentation as recorded by the Scribe Hoang Alexander All medical record entries made by the Scribe were at my direction and personally dictated by me. I have reviewed the chart and agree that the record accurately reflects my personal performance of the history, physical exam, medical decision making, and the department course for this patient. I have also personally directed, reviewed, and agree with the discharge instructions and disposition.
[2018-01-09 23:33] LABS: ACETAMINOPHEN < 10.0 ug/mL (10.0-30.0); SALICYLATE < 1.0 mg/dL 1
[2018-01-09 23:38] LABS: ALB/GLOB RATIO 1.3 (1.0-2.1); ALBUMIN 4.1 g/dL (3.5-5.0); ALT/SGPT 45 U/L (21-72); AST/SGOT 69 U/L (17-59); BLOOD UREA NITROGEN 8 mg/dL (9-20); CALCIUM 8.6 mg/dl (8.6-10.4); GFR AFRICAN-AMERICAN > 60; GFR NON-AFRICAN AMERICAN > 60
[2018-01-09] MEDS ORDERED: Sodium Chloride 0.9% 1,000 ML ONE (23:41)
[2018-01-09] MEDS ORDERED: Sodium Chloride 0.9% 1,000 ML IV ONE (23:45)
[2018-01-09 23:47] LABS: URINE BILIRUBIN NEGATIVE (NEGATIVE); URINE BLOOD NEGATIVE (NEGATIVE); URINE CLARITY Clear (Clear); URINE COLOR Yellow (YELLOW); URINE GLUCOSE (UA) NORMAL (Normal); URINE LEUKOCYTE ESTERASE NEG Leu/uL (Negative); URINE PROTEIN NEGATIVE (NEGATIVE); URINE UROBILINOGEN NORMAL mg/dL (0.2-1.0)
--- NOTE | 2018-01-09 23:51 | CP.PCM.HP ---
<Damari Tamayo - Last Filed: 01/10/18 00:38> History of Present Illness - History of Present Illness History of Present Illness: H&P: 37 year old male with past medical history of manic depression, bipolar, ADHA, astigmatisum presented to ED after a suicidal attempt about 1/2 before coming in. Patient states he took a bunch of pills at home including seroquel, wellbutrin, vistaril remeron and gabapentin. Patient is currently unresponsive and unable to give a hx. History is obtained from chart. Patient was brought in via ambulance for SI. On presentation, he was A&ox3 and responding to questions spontaneously. Patient stated he was depressed because it is Mother' s Day and he does not have a mother. Patient has had multiple suicidal attempts in the past. ROS unobtainable due to mental status. PMHx: stated above Surg: denied All: ASA SH: Admits to 1.5 ppd tobacco use, marijuana, and binge alcohol use FHx: non-contributory Meds: Vistaril 50 mg po q8, Wellbutrin 100 mg po BID, Seroquel 300 mg po AMHS, Remeron 45 mg po HS, Motrin 600 mg po q6, Neurontin 800 mg po QD, Tylenol 650 mg po q4 prn Present on Admission - Present on Admission Any Indicators Present on Admission: No Review of Systems - Review of Systems Systems not reviewed;Unavailable: Altered Mental Status Past Patient History - Infectious Disease Hx of Infectious Diseases: None - Tetanus Immunizations Tetanus Immunization: Up to Date, Unknown - Past Medical History & Family History Past Medical History?: No - Past Social History Smoking Status: Heavy Smoker > 10 Cigarettes Daily - CARDIAC Hx Hypertension: No - PULMONARY Hx Asthma: Yes Hx Bronchitis: Yes - NEUROLOGICAL Hx Seizures: No - HEENT Hx HEENT Problems: No - RENAL Hx Chronic Kidney Disease: No - ENDOCRINE/METABOLIC Hx Endocrine Disorders: No - HEMATOLOGICAL/ONCOLOGICAL Hx Human Immunodeficiency Virus (HIV): No - INTEGUMENTARY Hx Dermatological Problems: No - MUSCULOSKELETAL/RHEUMATOLOGICAL Hx Musculoskeletal Disorders: Yes Hx Falls: Yes Other/Comment: SCIATICA - GASTROINTESTINAL Hx Gastrointestinal Disorders: No - GENITOURINARY/GYNECOLOGICAL Hx Sexually Transmitted Disorders: No - PSYCHIATRIC Hx Anxiety: Yes Hx Bipolar Disorder: Yes Hx Depression: Yes (with suicide attempt since childhood (attempted hanging)) Hx Schizophrenia: Yes Hx Substance Use: Yes - SURGICAL HISTORY Other/Comment: tendon repair (right arm) - ANESTHESIA Hx Anesthesia: Yes Hx Anesthesia Reactions: No Meds Allergies/Adverse Reactions: Allergies Allergy/AdvReac Type Severity Reaction Status Date / Time aspirin Allergy RASH Verified 01/09/18 23:05 weed pollen Allergy RASH Verified 01/09/18 23:05 Physical Exam - Constitutional Appears: No Acute Distress - Head Exam Head Exam: ATRAUMATIC, NORMOCEPHALIC - Eye Exam Additional comments: pinpoint pupils - Respiratory Exam Respiratory Exam: Clear to Auscultation Bilateral. absent: Accessory Muscle Use , Rales, Rhonchi, Wheezes, Respiratory Distress - Cardiovascular Exam Cardiovascular Exam: Tachycardia, REGULAR RHYTHM, +S1, +S2 - GI/Abdominal Exam GI & Abdominal Exam: Hypoactive Bowel Sounds, Soft. absent: Distended, Rigid - Extremities Exam Extremities exam: Negative for: pedal edema - Neurological Exam Additional comments: unresponsive to painful stimuli. GCS of 3. - Skin Skin Exam: Dry, Intact, Normal Color, Warm Results - Vital Signs Recent Vital Signs: Last Vital Signs Temp 98.3 F 01/09/18 23:07 Pulse 103 H 01/09/18 23:07 Resp 24 01/09/18 23:07 BP 123/74 01/09/18 23:07 Pulse Ox 93 L 01/09/18 23:28 - Labs Result Diagrams: 01/09/18 23:17 01/09/18 23:17 Labs: Laboratory Results - last 24 hr 01/09/18 01/09/18 01/09/18 23:17 23:17 23:17 WBC 6.6 RBC 3.98 L Hgb 13.2 D Hct 37.7 MCV 94.9 H MCH 33.2 H MCHC 35.0 RDW 15.4 H Plt Count 279 MPV 7.2 Neut % (Auto) 53.0 Lymph % (Auto) 30.3 [place] % (Auto) 13.8 H Eos % (Auto) 2.2 Baso % (Auto) 0.7 Neut # (Auto) 3.5 Lymph # (Auto) 2.0 [place] # (Auto) 0.9 H Eos # (Auto) 0.1 Baso # (Auto) 0.0 Sodium 149 H Potassium 3.4 L Chloride 106 Carbon Dioxide 27 Anion Gap 20 BUN 8 L Creatinine 0.7 L Est GFR ( Amer) > 60 Est GFR (Non-Af Amer) > 60 POC Glucose (mg/dL) Random Glucose 119 H Calcium 8.6 Magnesium Total Bilirubin 0.3 AST 69 H D ALT 45 Alkaline Phosphatase 56 Total Protein 7.1 Albumin 4.1 Globulin 3.0 Albumin/Globulin Ratio 1.3 Salicylates < 1.0 Acetaminophen < 10.0 L Alcohol, Quantitative 174 H 01/09/18 01/09/18 23:28 23:30 WBC RBC Hgb Hct MCV MCH MCHC RDW Plt Count MPV Neut % (Auto) Lymph % (Auto) [place] % (Auto) Eos % (Auto) Baso % (Auto) Neut # (Auto) Lymph # (Auto) [place] # (Auto) Eos # (Auto) Baso # (Auto) Sodium Potassium Chloride Carbon Dioxide Anion Gap BUN Creatinine Est GFR ( Amer) Est GFR (Non-Af Amer) POC Glucose (mg/dL) 107 Random Glucose Calcium Magnesium 2.2 Total Bilirubin AST ALT Alkaline Phosphatase Total Protein Albumin Globulin Albumin/Globulin Ratio Salicylates Acetaminophen Alcohol, Quantitative Assessment & Plan - Assessment and Plan (Free Text) Assessment: 37 year old male with past medical history of ADHA, bipolar, manic depression is admitted for suicidal attempt with ingestion of multiple prescription pills. Suicidal attempt - Pt will be atmitted to ICU for closer monitoring. Software Performance Engineer, Dr. Jason Wilson accepted pt. - Blood work on admission is negative for salicylates and tylenol. Blood ETOH level on admission is 174 - Poison control called in ED. Recommend q4 electrolyte monitoring and q4 ekg monitoring for QT interval - UDS, ABG pending - EKG on admission showed NSR with incomplete RBBB, QTc of 476. Q4 EKGs for QT interval monitoring - Psych, Dr. Redding is consulted - D5 in water at 42 cc per ICU - Management per ICU Case discussed with attending, Dr. Johnson - Date & Time Date: 01/09/18 Time: 23:51 <Chay Johnson - Last Filed: 01/10/18 06:21> Results - Vital Signs Recent Vital Signs: Last Vital Signs Temp 98.3 F 01/10/18 01:30 Pulse 136 H 01/10/18 04:21 Resp 20 01/10/18 04:21 BP 156/82 H 01/10/18 04:21 Pulse Ox 100 01/10/18 04:21 - Labs Result Diagrams: 01/10/18 03:59 01/10/18 03:59 Labs: Laboratory Results - last 24 hr 01/09/18 01/09/18 01/09/18 23:17 23:17 23:17 WBC 6.6 RBC 3.98 L Hgb 13.2 D Hct 37.7 MCV 94.9 H MCH 33.2 H MCHC 35.0 RDW 15.4 H Plt Count 279 MPV 7.2 Neut % (Auto) 53.0 Lymph % (Auto) 30.3 [place] % (Auto) 13.8 H Eos % (Auto) 2.2 Baso % (Auto) 0.7 Neut # (Auto) 3.5 Lymph # (Auto) 2.0 [place] # (Auto) 0.9 H Eos # (Auto) 0.1 Baso # (Auto) 0.0 Puncture Site pCO2 pO2 HCO3 ABG pH ABG Total CO2 ABG O2 Saturation ABG Base Excess Kush Test ABG Potassium A-a O2 Difference Respiratory Index Glucose Lactate Vent Mode Mechanical Rate FiO2 Tidal Volume PEEP Inspiratory BiPAP Expiratory BiPAP Sodium 149 H Potassium 3.4 L Chloride 106 Carbon Dioxide 27 Anion Gap 20 BUN 8 L Creatinine 0.7 L Est GFR ( Amer) > 60 Est GFR (Non-Af Amer) > 60 POC Glucose (mg/dL) Random Glucose 119 H Calcium 8.6 Magnesium Total Bilirubin 0.3 AST 69 H D ALT 45 Alkaline Phosphatase 56 Total Protein 7.1 Albumin 4.1 Globulin 3.0 Albumin/Globulin Ratio 1.3 Arterial Blood Potassium Urine Color Urine Clarity Urine pH Ur Specific [place] Urine Protein Urine Glucose (UA) Urine Ketones Urine Blood Urine Nitrate Urine Bilirubin Urine Urobilinogen Ur Leukocyte Esterase Urine WBC (Auto) Urine RBC (Auto) Salicylates < 1.0 Urine Opiates Screen Urine Methadone Screen Acetaminophen < 10.0 L Ur Barbiturates Screen Ur Phencyclidine Scrn Ur Amphetamines Screen U Benzodiazepines Scrn U Oth Cocaine Metabols U Cannabinoids Screen Alcohol, Quantitative 174 H 01/09/18 01/09/18 01/09/18 23:28 23:30 23:42 WBC RBC Hgb Hct MCV MCH MCHC RDW Plt Count MPV Neut % (Auto) Lymph % (Auto) [place] % (Auto) Eos % (Auto) Baso % (Auto) Neut # (Auto) Lymph # (Auto) [place] # (Auto) Eos # (Auto) Baso # (Auto) Puncture Site pCO2 pO2 HCO3 ABG pH ABG Total CO2 ABG O2 Saturation ABG Base Excess Kush Test ABG Potassium A-a O2 Difference Respiratory Index Glucose Lactate Vent Mode Mechanical Rate FiO2 Tidal Volume PEEP Inspiratory BiPAP Expiratory BiPAP Sodium Potassium Chloride Carbon Dioxide Anion Gap BUN Creatinine Est GFR ( Amer) Est GFR (Non-Af Amer) POC Glucose (mg/dL) 107 Random Glucose Calcium Magnesium 2.2 Total Bilirubin AST ALT Alkaline Phosphatase Total Protein Albumin Globulin Albumin/Globulin Ratio Arterial Blood Potassium Urine Color Yellow Urine Clarity Clear Urine pH 5.0 Ur Specific [place] 1.013 Urine Protein Negative Urine Glucose (UA) Normal Urine Ketones Negative Urine Blood Negative Urine Nitrate Negative Urine Bilirubin Negative Urine Urobilinogen Normal Ur Leukocyte Esterase Neg Urine WBC (Auto) 1 Urine RBC (Auto) < 1 Salicylates Urine Opiates Screen Urine Methadone Screen Acetaminophen Ur Barbiturates Screen Ur Phencyclidine Scrn Ur Amphetamines Screen U Benzodiazepines Scrn U Oth Cocaine Metabols U Cannabinoids Screen Alcohol, Quantitative 01/09/18 01/10/18 01/10/18 23:42 02:02 02:36 WBC RBC Hgb Hct MCV MCH MCHC RDW Plt Count MPV Neut % (Auto) Lymph % (Auto) [place] % (Auto) Eos % (Auto) Baso % (Auto) Neut # (Auto) Lymph # (Auto) [place] # (Auto) Eos # (Auto) Baso # (Auto) Puncture Site R brac pCO2 52 H pO2 160 H HCO3 27.8 ABG pH 7.37 ABG Total CO2 31.7 H ABG O2 Saturation 99.7 H ABG Base Excess 3.6 H Kush Test Na ABG Potassium 3.2 L A-a O2 Difference -11.0 Respiratory Index -0.1 Glucose 83 Lactate 1.7 Vent Mode Bipap Mechanical Rate 16 FiO2 30.0 Tidal Volume PEEP Inspiratory BiPAP 12 Expiratory BiPAP 6 Sodium 146.0 Potassium Chloride 112.0 H Carbon Dioxide Anion Gap BUN Creatinine Est GFR ( Amer) Est GFR (Non-Af Amer) POC Glucose (mg/dL) 70 Random Glucose Calcium Magnesium Total Bilirubin AST ALT Alkaline Phosphatase Total Protein Albumin Globulin Albumin/Globulin Ratio Arterial Blood Potassium 3.2 L Urine Color Urine Clarity Urine pH Ur Specific [place] Urine Protein Urine Glucose (UA) Urine Ketones Urine Blood Urine Nitrate Urine Bilirubin Urine Urobilinogen Ur Leukocyte Esterase Urine WBC (Auto) Urine RBC (Auto) Salicylates Urine Opiates Screen Negative Urine Methadone Screen Negative Acetaminophen Ur Barbiturates Screen Negative Ur Phencyclidine Scrn Negative Ur Amphetamines Screen Negative U Benzodiazepines Scrn Positive U Oth Cocaine Metabols Negative U Cannabinoids Screen Positive H Alcohol, Quantitative 01/10/18 01/10/18 01/10/18 03:31 03:59 03:59 WBC 6.1 RBC 3.55 L Hgb 11.7 L Hct 33.9 L MCV 95.3 H MCH 32.9 H MCHC 34.5 RDW 15.3 H Plt Count 245 MPV 7.1 L Neut % (Auto) 41.2 L Lymph % (Auto) 39.8 [place] % (Auto) 14.7 H Eos % (Auto) 3.7 Baso % (Auto) 0.6 Neut # (Auto) 2.5 Lymph # (Auto) 2.4 [place] # (Auto) 0.9 H Eos # (Auto) 0.2 Baso # (Auto) 0.0 Puncture Site pCO2 pO2 HCO3 ABG pH ABG Total CO2 ABG O2 Saturation ABG Base Excess Kush Test ABG Potassium A-a O2 Difference Respiratory Index Glucose Lactate Vent Mode Mechanical Rate FiO2 Tidal Volume PEEP Inspiratory BiPAP Expiratory BiPAP Sodium 146 Potassium 3.5 L Chloride 108 H Carbon Dioxide 25 Anion Gap 16 BUN 7 L Creatinine 0.5 L Est GFR ( Amer) > 60 Est GFR (Non-Af Amer) > 60 POC Glucose (mg/dL) 81 Random Glucose 166 H Calcium 6.9 L Magnesium 1.9 Total Bilirubin 0.3 AST 46 ALT 37 Alkaline Phosphatase 48 Total Protein 5.3 L Albumin 3.0 L D Globulin 2.3 Albumin/Globulin Ratio 1.3 Arterial Blood Potassium Urine Color Urine Clarity Urine pH Ur Specific [place] Urine Protein Urine Glucose (UA) Urine Ketones Urine Blood Urine Nitrate Urine Bilirubin Urine Urobilinogen Ur Leukocyte Esterase Urine WBC (Auto) Urine RBC (Auto) Salicylates Urine Opiates Screen Urine Methadone Screen Acetaminophen Ur Barbiturates Screen Ur Phencyclidine Scrn Ur Amphetamines Screen U Benzodiazepines Scrn U Oth Cocaine Metabols U Cannabinoids Screen Alcohol, Quantitative 01/10/18 01/10/18 05:18 05:23 WBC RBC Hgb Hct MCV MCH MCHC RDW Plt Count MPV Neut % (Auto) Lymph % (Auto) [place] % (Auto) Eos % (Auto) Baso % (Auto) Neut # (Auto) Lymph # (Auto) [place] # (Auto) Eos # (Auto) Baso # (Auto) Puncture Site Lrad pCO2 45 pO2 149 H HCO3 25.2 ABG pH 7.37 ABG Total CO2 27.4 ABG O2 Saturation 99.9 H ABG Base Excess 0.3 Kush Test Pos ABG Potassium 3.2 L A-a O2 Difference 80.0 Respiratory Index 0.5 Glucose 110 Lactate 2.6 H Vent Mode Prvc Mechanical Rate 20 FiO2 40.0 Tidal Volume 500 PEEP 5 Inspiratory BiPAP Expiratory BiPAP Sodium 145.0 Potassium Chloride 110.0 H Carbon Dioxide Anion Gap BUN Creatinine Est GFR ( Amer) Est GFR (Non-Af Amer) POC Glucose (mg/dL) 118 H Random Glucose Calcium Magnesium Total Bilirubin AST ALT Alkaline Phosphatase Total Protein Albumin Globulin Albumin/Globulin Ratio Arterial Blood Potassium 3.2 L Urine Color Urine Clarity Urine pH Ur Specific [place] Urine Protein Urine Glucose (UA) Urine Ketones Urine Blood Urine Nitrate Urine Bilirubin Urine Urobilinogen Ur Leukocyte Esterase Urine WBC (Auto) Urine RBC (Auto) Salicylates Urine Opiates Screen Urine Methadone Screen Acetaminophen Ur Barbiturates Screen Ur Phencyclidine Scrn Ur Amphetamines Screen U Benzodiazepines Scrn U Oth Cocaine Metabols U Cannabinoids Screen Alcohol, Quantitative Assessment & Plan - Date & Time Date: 01/10/18 (I have seen and examined the patient. I agree with the findings and plan of care as documented by Dr. Tamayo. Patient with suicide attempt by ingesting large quantities of home meds. Poison control contacted by ED. Admit to ICU. Change in mental status and respiratory compromise. EKG and CMP q4. Further management as per ICU. Monitor for acute changes.) Time: 06:19 Attending/Attestation - Attestation I have personally seen and examined this patient.: Yes I have fully participated in the care of the patient.: Yes I have reviewed all pertinent clinical information: Yes
[2018-01-10 00:01] LABS: BARBITURATES, UR NEGATIVE (NEGATIVE); OPIATES, UR NEGATIVE (NEGATIVE); PHENCYCLIDINE, UR NEGATIVE (NEGATIVE)
[2018-01-10 00:03] LABS: BENZODIAZEPINES, UR POSITIVE (NEGATIVE)
[2018-01-10] MEDS: Folic Acid 1 MG, Thiamine 100 MG, Multivitamin (MVI) 10 ML in Dextrose 5% In Water 1,00... IV SCH (01:11)
[2018-01-10 02:06] LABS: ARTERIAL BLOOD GAS HCO3 27.8 mmol/L (21-28); ARTERIAL BLOOD GAS O2 SAT 99.7 % (95-98); ARTERIAL BLOOD GAS PCO2 52 mm/Hg (35-45); ARTERIAL BLOOD GAS PH 7.37 (7.35-7.45); ARTERIAL BLOOD GAS PO2 160 mm/Hg (80-100); ARTERIAL BLOOD GAS TCO2 31.7 mmol/L (22-28)
[2018-01-10] MEDS ORDERED: Naloxone 0.4 mg/ml Inj (Adult) ONE ×2 (02:33→02:40)
[2018-01-10] MEDS ORDERED: Naloxone 0.4 mg/ml Inj (Adult) IVP ONE ×2 (02:34→02:38)
[2018-01-10] MEDS ORDERED: Propofol 10 mg/ml Inj (20 ML) ONE (02:52)
[2018-01-10] MEDS ORDERED: Sodium Chloride 0.9% 1,000 ML IV ONE (02:53)
[2018-01-10] MEDS ORDERED: Propofol 10 mg/ml 1,000 MG/100 ML VIAL ONE (02:53)
[2018-01-10] MEDS ORDERED: Sodium Chloride 0.9% 1,000 ML ONE (02:59)
--- NOTE | 2018-01-10 03:08 | CP.PCM.CON ---
History of Present Illness - History of Present Illness History of Present Illness: 37 y/o male with pmx of depression, bipolar, ADHA and suicidal attempts presents to [facility] with c/o OD on prescription drugs. Patient was able to provide a history on admission to ER. Patient was placed on bi-pap and ETCO2. ABG pending Limited history 2nd mental status Surg: none as per previous chart All: ASA SH: Admits to 1.5 ppd tobacco use, marijuana, and binge alcohol use FHx: non-contributory Meds: Vistaril 50 mg po q8, Wellbutrin 100 mg po BID, Seroquel 300 mg po AMHS, Remeron 45 mg po HS, Motrin 600 mg po q6, Neurontin 800 mg po QD, Tylenol 650 mg po q4 prn Review of Systems - Review of Systems Systems not reviewed;Unavailable: Altered Mental Status Review of Systems: limited ROS Past Patient History - Infectious Disease Hx of Infectious Diseases: None - Tetanus Immunizations Tetanus Immunization: Up to Date, Unknown - Past Medical History & Family History Past Medical History?: No - Past Social History Smoking Status: Heavy Smoker > 10 Cigarettes Daily - CARDIAC Hx Hypertension: No - PULMONARY Hx Asthma: Yes Hx Bronchitis: Yes - NEUROLOGICAL Hx Seizures: No - HEENT Hx HEENT Problems: No - RENAL Hx Chronic Kidney Disease: No - ENDOCRINE/METABOLIC Hx Endocrine Disorders: No - HEMATOLOGICAL/ONCOLOGICAL Hx Human Immunodeficiency Virus (HIV): No - INTEGUMENTARY Hx Dermatological Problems: No - MUSCULOSKELETAL/RHEUMATOLOGICAL Hx Musculoskeletal Disorders: Yes Hx Falls: Yes Other/Comment: SCIATICA - GASTROINTESTINAL Hx Gastrointestinal Disorders: No - GENITOURINARY/GYNECOLOGICAL Hx Sexually Transmitted Disorders: No - PSYCHIATRIC Hx Anxiety: Yes Hx Bipolar Disorder: Yes Hx Depression: Yes (with suicide attempt since childhood (attempted hanging)) Hx Schizophrenia: Yes Hx Substance Use: Yes - SURGICAL HISTORY Other/Comment: tendon repair (right arm) - ANESTHESIA Hx Anesthesia: Yes Hx Anesthesia Reactions: No Meds Allergies/Adverse Reactions: Allergies Allergy/AdvReac Type Severity Reaction Status Date / Time aspirin Allergy RASH Verified 01/09/18 23:05 weed pollen Allergy RASH Verified 01/09/18 23:05 - Medications Medications: Current Medications Folic Acid 1 mg/ Thiamine HCl 100 mg/ Multivitamins/Vitamin C 10 ml/ Dextrose 1 ,011.2 mls @ 42 mls/hr IV .Q24H [facility] Last Admin: 01/10/18 01:11 Dose: 42 mls/hr Sodium Chloride (Sodium Chloride 0.9%) 1,000 mls @ 1,000 mls/hr IV .Q1H ONE Stop: 01/10/18 03:52 Physical Exam - Head Exam Head Exam: ATRAUMATIC, NORMAL INSPECTION, NORMOCEPHALIC - Eye Exam Eye Exam: Normal appearance - ENT Exam Additional comments: Pupils reactive but sluggish - Respiratory Exam Respiratory Exam: Clear to Auscultation Bilateral - Cardiovascular Exam Cardiovascular Exam: Tachycardia, +S1, +S2 - GI/Abdominal Exam GI & Abdominal Exam: Soft. absent: Rebound, Rigid - Extremities Exam Extremities exam: Positive for: normal inspection - Skin Skin Exam: Normal Color Results - Vital Signs Recent Vital Signs: Last Vital Signs Temp 98.3 F 01/10/18 01:30 Pulse 100 H 01/10/18 01:30 Resp 10 L 01/10/18 01:30 BP 107/63 01/10/18 01:30 Pulse Ox 99 01/10/18 01:30 - Labs Result Diagrams: 01/10/18 03:59 01/10/18 03:59 Labs: Laboratory Results - last 24 hr 01/09/18 01/09/18 01/09/18 23:17 23:17 23:17 WBC 6.6 RBC 3.98 L Hgb 13.2 D Hct 37.7 MCV 94.9 H MCH 33.2 H MCHC 35.0 RDW 15.4 H Plt Count 279 MPV 7.2 Neut % (Auto) 53.0 Lymph % (Auto) 30.3 [place] % (Auto) 13.8 H Eos % (Auto) 2.2 Baso % (Auto) 0.7 Neut # (Auto) 3.5 Lymph # (Auto) 2.0 [place] # (Auto) 0.9 H Eos # (Auto) 0.1 Baso # (Auto) 0.0 Puncture Site pCO2 pO2 HCO3 ABG pH ABG Total CO2 ABG O2 Saturation ABG Base Excess Kush Test ABG Potassium A-a O2 Difference Respiratory Index Glucose Lactate Vent Mode Mechanical Rate FiO2 Inspiratory BiPAP Expiratory BiPAP Sodium 149 H Potassium 3.4 L Chloride 106 Carbon Dioxide 27 Anion Gap 20 BUN 8 L Creatinine 0.7 L Est GFR ( Amer) > 60 Est GFR (Non-Af Amer) > 60 POC Glucose (mg/dL) Random Glucose 119 H Calcium 8.6 Magnesium Total Bilirubin 0.3 AST 69 H D ALT 45 Alkaline Phosphatase 56 Total Protein 7.1 Albumin 4.1 Globulin 3.0 Albumin/Globulin Ratio 1.3 Arterial Blood Potassium Urine Color Urine Clarity Urine pH Ur Specific [place] Urine Protein Urine Glucose (UA) Urine Ketones Urine Blood Urine Nitrate Urine Bilirubin Urine Urobilinogen Ur Leukocyte Esterase Urine WBC (Auto) Urine RBC (Auto) Salicylates < 1.0 Urine Opiates Screen Urine Methadone Screen Acetaminophen < 10.0 L Ur Barbiturates Screen Ur Phencyclidine Scrn Ur Amphetamines Screen U Benzodiazepines Scrn U Oth Cocaine Metabols U Cannabinoids Screen Alcohol, Quantitative 174 H 01/09/18 01/09/18 01/09/18 23:28 23:30 23:42 WBC RBC Hgb Hct MCV MCH MCHC RDW Plt Count MPV Neut % (Auto) Lymph % (Auto) [place] % (Auto) Eos % (Auto) Baso % (Auto) Neut # (Auto) Lymph # (Auto) [place] # (Auto) Eos # (Auto) Baso # (Auto) Puncture Site pCO2 pO2 HCO3 ABG pH ABG Total CO2 ABG O2 Saturation ABG Base Excess Kush Test ABG Potassium A-a O2 Difference Respiratory Index Glucose Lactate Vent Mode Mechanical Rate FiO2 Inspiratory BiPAP Expiratory BiPAP Sodium Potassium Chloride Carbon Dioxide Anion Gap BUN Creatinine Est GFR ( Amer) Est GFR (Non-Af Amer) POC Glucose (mg/dL) 107 Random Glucose Calcium Magnesium 2.2 Total Bilirubin AST ALT Alkaline Phosphatase Total Protein Albumin Globulin Albumin/Globulin Ratio Arterial Blood Potassium Urine Color Yellow Urine Clarity Clear Urine pH 5.0 Ur Specific [place] 1.013 Urine Protein Negative Urine Glucose (UA) Normal Urine Ketones Negative Urine Blood Negative Urine Nitrate Negative Urine Bilirubin Negative Urine Urobilinogen Normal Ur Leukocyte Esterase Neg Urine WBC (Auto) 1 Urine RBC (Auto) < 1 Salicylates Urine Opiates Screen Urine Methadone Screen Acetaminophen Ur Barbiturates Screen Ur Phencyclidine Scrn Ur Amphetamines Screen U Benzodiazepines Scrn U Oth Cocaine Metabols U Cannabinoids Screen Alcohol, Quantitative 01/09/18 01/10/18 01/10/18 23:42 02:02 02:36 WBC RBC Hgb Hct MCV MCH MCHC RDW Plt Count MPV Neut % (Auto) Lymph % (Auto) [place] % (Auto) Eos % (Auto) Baso % (Auto) Neut # (Auto) Lymph # (Auto) [place] # (Auto) Eos # (Auto) Baso # (Auto) Puncture Site R brac pCO2 52 H pO2 160 H HCO3 27.8 ABG pH 7.37 ABG Total CO2 31.7 H ABG O2 Saturation 99.7 H ABG Base Excess 3.6 H Kush Test Na ABG Potassium 3.2 L A-a O2 Difference -11.0 Respiratory Index -0.1 Glucose 83 Lactate 1.7 Vent Mode Bipap Mechanical Rate 16 FiO2 30.0 Inspiratory BiPAP 12 Expiratory BiPAP 6 Sodium 146.0 Potassium Chloride 112.0 H Carbon Dioxide Anion Gap BUN Creatinine Est GFR ( Amer) Est GFR (Non-Af Amer) POC Glucose (mg/dL) 70 Random Glucose Calcium Magnesium Total Bilirubin AST ALT Alkaline Phosphatase Total Protein Albumin Globulin Albumin/Globulin Ratio Arterial Blood Potassium 3.2 L Urine Color Urine Clarity Urine pH Ur Specific [place] Urine Protein Urine Glucose (UA) Urine Ketones Urine Blood Urine Nitrate Urine Bilirubin Urine Urobilinogen Ur Leukocyte Esterase Urine WBC (Auto) Urine RBC (Auto) Salicylates Urine Opiates Screen Negative Urine Methadone Screen Negative Acetaminophen Ur Barbiturates Screen Negative Ur Phencyclidine Scrn Negative Ur Amphetamines Screen Negative U Benzodiazepines Scrn Positive U Oth Cocaine Metabols Negative U Cannabinoids Screen Positive H Alcohol, Quantitative Assessment & Plan - Assessment and Plan (Free Text) Assessment: AMS: provides history of OD on prescription drugs, chect CT head, Utox, EKG for QTC and start bicarb ggt if QTC prolonged -monitor GCS, if GCS < 8 intubate -Hypernatremia: start bananna bag -NG tube and start charcoal -Place wooten and monitor urine output -dvt ppx heparin SW once CT head neg -PUD ppx protonix -symptomatic treatment -glucose q6hrs -Prognosis guarded as substance ingested is unknown. cc time 50 minutes - Date & Time Date: 01/09/18 Time: 23:50
[2018-01-10] MEDS ORDERED: Propofol 10 mg/ml 1,000 MG/100 ML VIAL IV PRN (03:16)
[2018-01-10] MEDS ORDERED: Charcoal 50 gm/240 ml Susp PO STA (03:18)
--- NOTE | 2018-01-10 03:18 | PCM.ANES ---
Anesthesia Emergent Intubation - Diagnosis Working Diagnosis:: resp failure sp overdose/intoxication - Consult Reason for Consult:: intubation - Intubation Attempts Previous Number of Intubation Attempts:: 1 - Pre-Intubation Vital Signs Blood Pressure: 154/80 Heart Rate: 90 Respiratory Rate: 6 O2 Sat: 100 FIO2: 100 Oxygen Delivery Method: BiPAP Level Of Consciousness: Lethargic, Unable to follow directions Intubation Meds Given: Propofol - Airway Management Oropharyngeal Area Suctioned: No Rapid Sequence: Yes Cricoid Pressure: Yes Possible Aspiration: No - Method of Intubation Intubation Method: Oral ETT ETT Size: 8.0 Lipline@: 21 Easy: Yes Atramatic: Yes - Intubation Devices Roshan Blade Size Used: 3 Edgar Forcepts Used: No Springer Scope Used: No Fiber Optic Scope: No - Placement Confirmation Breath Sounds Present & Equal Bilaterally: Yes Gurgling Sounds Not Audible at Epigastrum: No Positive EtCO2: Yes Recommendations: Ventilator - Post-Intubation Vital Signs O2 Sat: 100
[2018-01-10] MEDS ORDERED: Lactated Ringer's 1,000 ML IV ONE (03:19)
[2018-01-10] MEDS ORDERED: Propofol 10 mg/ml 1,000 MG/100 ML VIAL IVP PRN (03:36)
[2018-01-10] MEDS ORDERED: Succinylcholine Chloride 20 mg/ml Syr (5 ml) IV STA (03:36)
[2018-01-10] MEDS ORDERED: Lidocaine 100 MG in Sodium Chloride 0.9% 100 ML IV ONE (03:37)
[2018-01-10 04:05] LABS: BASO % 0.6 % (0.0-2.0); EOS # 0.2 K/uL (0.0-0.7); EOS % 3.7 % (0.0-4.0); HEMOGLOBIN 11.7 g/dL (12.0-18.0); LYMPH # 2.4 K/uL (1.0-4.3); LYMPH % 39.8 % (20.0-40.0); MEAN CELL VOLUME 95.3 fL (80.0-94.0); MEAN CORPUSCULAR HEMOGLOBIN 32.9 pg (27.0-31.0); MEAN CORPUSCULAR HGB CONC 34.5 g/dL (33.0-37.0); MEAN PLATELET VOLUME 7.1 fL (7.2-11.7); MONO # 0.9 K/uL (0.0-0.8); MONO % 14.7 % (0.0-10.0); NEUT # 2.5 K/uL (1.8-7.0); NEUT % 41.2 % (50.0-75.0); NRBC % 0.1 % (0.0-2.0); RBC 3.55 Mil/uL (4.40-5.90); RED CELL DISTRIBUTION WIDTH 15.3 % (11.5-14.5); WHITE BLOOD COUNT 6.1 K/uL (4.8-10.8)
[2018-01-10 04:13] LABS: ALB/GLOB RATIO 1.3 (1.0-2.1); ALT/SGPT 37 U/L (21-72); AST/SGOT 46 U/L (17-59); BLOOD UREA NITROGEN 7 mg/dL (9-20); CALCIUM 6.9 mg/dl (8.6-10.4); GFR AFRICAN-AMERICAN > 60; GFR NON-AFRICAN AMERICAN > 60
[2018-01-10] MEDS ORDERED: Propofol 10 mg/ml Inj (20 ML) IV ONE (04:15)
[2018-01-10] MEDS ORDERED: Potassium Chloride 20 mEq/15 ml LIQ UD PO ONE (04:30)
[2018-01-10] MEDS: Lactated Ringer's 1,000 ML IV SCH ×2 (05:22→19:28)
--- NOTE | 2018-01-10 05:33 | CT ---
EXAM: CT Head Without Intravenous Contrast CLINICAL HISTORY: 37 years old, male; Pain; Headache and other: Over dose; Patient HX: 07-24-17; Additional info: Progressive worsneing AMS TECHNIQUE: Axial computed tomography images of the head/brain without intravenous contrast. All CT scans at this facility use one or more dose reduction techniques, viz.: automated exposure control; ma/kV adjustment per patient size (including targeted exams where dose is matched to indication; i.e. head); or iterative reconstruction technique. 114 images are submitted. COMPARISON: No relevant prior studies available. FINDINGS: Brain: Unremarkable. No hemorrhage. No significant white matter disease. No edema. Ventricles: Unremarkable. No ventriculomegaly. Bones/joints: Unremarkable. No acute fracture. Soft tissues: Unremarkable. Sinuses: Patchy sinus disease. Mastoid air cells: Unremarkable. No mastoid effusion. Orbits: The globe and lens are intact. Oropharynx: There is fluid or secretions in the naso-oropharynx. Tubes, lines and devices: There is endotracheal tube extending into the oropharynx. NG tube is seen in the nasopharynx and left nares. The positioning is not confirmed on this examination. IMPRESSION: No evidence of an acute intracranial hemorrhage, midline shift or mass effect is identified.
[2018-01-10 05:56] LABS: ABG ALLEN TEST POS; ARTERIAL BLOOD GAS HCO3 25.2 mmol/L (21-28); ARTERIAL BLOOD GAS O2 SAT 99.9 % (95-98); ARTERIAL BLOOD GAS PCO2 45 mm/Hg (35-45); ARTERIAL BLOOD GAS PH 7.37 (7.35-7.45); ARTERIAL BLOOD GAS PO2 149 mm/Hg (80-100); ARTERIAL BLOOD GAS TCO2 27.4 mmol/L (22-28)
--- NOTE | 2018-01-10 08:27 | RAD ---
PROCEDURE: Chest, limited HISTORY: intubated COMPARISON: 12/26/2017 TECHNIQUE: AP portable radiograph of the lower thorax and upper abdomen. No true old chest radiograph is included in this examination. FINDINGS: Lung bases appear free of infiltrate. No evidence of pleural effusion. Nasogastric tube extends to the left side of the abdomen. No evidence of bowel obstruction. IMPRESSION: Nasogastric tube extends to left side of abdomen.
[2018-01-10] MEDS ORDERED: Albuterol-Ipratrop 3 mg / 0.5 (3 ml) UD INH PRN (09:20)
--- NOTE | 2018-01-10 10:26 | RAD ---
HISTORY: SOB COMPARISON: No prior. FINDINGS: LUNGS: No active pulmonary disease. PLEURA: No significant pleural effusion identified, no pneumothorax apparent. CARDIOVASCULAR: Normal. OSSEOUS STRUCTURES: No significant abnormalities. VISUALIZED UPPER ABDOMEN: Normal. OTHER FINDINGS: Endotracheal tube with tip above the clavicles. Enteric tube with tip in the stomach. IMPRESSION: Endotracheal tube with tip above the clavicles, advancement can be considered. Enteric tube in satisfactory position. No focal consolidation, pleural effusion or evidence of pneumothorax.
[2018-01-10 11:33] LABS: BASO # 0.1 K/uL (0.0-0.2); EOS # 0.2 K/uL (0.0-0.7); EOS % 2.3 % (0.0-4.0); HEMOGLOBIN 11.6 g/dL (12.0-18.0); LYMPH # 1.7 K/uL (1.0-4.3); LYMPH % 22.5 % (20.0-40.0); MEAN CELL VOLUME 95.4 fL (80.0-94.0); MEAN CORPUSCULAR HEMOGLOBIN 33.5 pg (27.0-31.0); MEAN CORPUSCULAR HGB CONC 35.1 g/dL (33.0-37.0); MEAN PLATELET VOLUME 7.3 fL (7.2-11.7); MONO # 0.7 K/uL (0.0-0.8); MONO % 9.8 % (0.0-10.0); NEUT # 4.8 K/uL (1.8-7.0); NEUT % 64.4 % (50.0-75.0); NRBC % 0.2 % (0.0-2.0); RBC 3.47 Mil/uL (4.40-5.90); RED CELL DISTRIBUTION WIDTH 15.5 % (11.5-14.5); WHITE BLOOD COUNT 7.4 K/uL (4.8-10.8)
[2018-01-10 11:42] LABS: INR 1.2; PROTHROMBIN TIME 13.6 SECONDS (9.7-12.2)
[2018-01-10 12:05] LABS: ALB/GLOB RATIO 1.1 (1.0-2.1); ALBUMIN 3.1 g/dL (3.5-5.0); ALT/SGPT 43 U/L (21-72); AMYLASE 40 U/L (30-110); AST/SGOT 47 U/L (17-59); BLOOD UREA NITROGEN 6 mg/dL (9-20); CALCIUM 8.8 mg/dl (8.6-10.4); GFR AFRICAN-AMERICAN > 60; GFR NON-AFRICAN AMERICAN > 60
--- NOTE | 2018-01-10 12:16 | CP.CCUPN ---
<Marizol Hu - Last Filed: 01/10/18 12:13> CCU Subjective - Physician Review Subjective (Free Text): Patient seen and examined at bedside. Currently intubated and sedated on propofol. CCU Objective - Vital Signs / Intake & Output Intake and Output (Last 8hrs): Intake & Output 01/09/18 01/10/18 01/10/18 22:59 06:59 14:59 Intake Total 2000 Output Total 600 Balance 1400 Weight 176 lb 5.917 oz Intake: IV 2000 Output: Gastric Amount 200 Urine 400 Other: Voiding Method Indwelling Catheter - Physical Exam Physical Exam Limitations: Positive for: Other (Intubated) Head: Positive for: Atraumatic, Normocephalic Pupils: Positive for: Sluggish Conjunctiva: Positive for: Normal Respiratory/Chest: Positive for: Clear to Auscultation Cardiovascular: Positive for: Regular Rate and Rhythm, Normal S1, S2 Abdomen: Positive for: Normal Bowel Sounds Upper Extremity: Negative for: Edema Lower Extremity: Negative for: Edema Skin: Positive for: Warm, Dry, Normal Color Other physical findings (Free Text): Sedated - Medications Active Medications: Active Medications Generic Name Dose Route Start Last Admin Trade Name Freq PRN Reason Stop Dose Admin Albuterol/Ipratropium 3 ml 01/10/18 09:20 Duoneb 3 Mg/0.5 Mg (3 Ml) Ud INH RQ6 PRN Shortness of Breath Heparin Sodium (Porcine) 5,000 units 01/10/18 14:00 Heparin SC Q8 BRIAN Folic Acid 1 mg/ Thiamine HCl 1,011.2 mls @ 42 mls/hr 01/10/18 00:00 01:11 100 mg/ Multivitamins/Vitamin IV 42 mls/hr C 10 ml/ Dextrose .Q24H BRIAN Administration Propofol 1,000 mg in 100 mls @ 2.313 mls/hr 01/10/18 03:16 01/10/18 03:34 Diprivan IV 5 mcg/kg/min .Q24H PRN 2.313 mls/hr TITRATE PER MD ORDER Administration Protocol 5 MCG/KG/MIN Lactated Ringer's 1,000 mls @ 100 mls/hr 01/10/18 04:15 01/10/18 05:22 Lactated Ringer's IV 100 mls/hr .Q10H BRIAN Administration Lorazepam 2 mg 01/10/18 09:17 Ativan IVP Q4H PRN Anxiety Pantoprazole Sodium 40 mg 01/10/18 10:00 Protonix Inj IVP DAILY BRIAN - Patient Studies Lab Studies: Lab Studies 01/10/18 01/10/18 01/10/18 Range/Units 11:34 11:28 11:28 WBC 7.4 (4.8-10.8) K/uL RBC 3.47 L (4.40-5.90) Mil/uL Hgb 11.6 L (12.0-18.0) g/dL Hct 33.2 L (35.0-51.0) % MCV 95.4 H (80.0-94.0) fL MCH 33.5 H (27.0-31.0) pg MCHC 35.1 (33.0-37.0) g/dL RDW 15.5 H (11.5-14.5) % Plt Count 272 (130-400) K/uL MPV 7.3 (7.2-11.7) fL Neut % (Auto) 64.4 (50.0-75.0) % Lymph % (Auto) 22.5 (20.0-40.0) % [place] % (Auto) 9.8 (0.0-10.0) % Eos % (Auto) 2.3 (0.0-4.0) % Baso % (Auto) 1.0 (0.0-2.0) % Neut # (Auto) 4.8 (1.8-7.0) K/uL Lymph # (Auto) 1.7 (1.0-4.3) K/uL [place] # (Auto) 0.7 (0.0-0.8) K/uL Eos # (Auto) 0.2 (0.0-0.7) K/uL Baso # (Auto) 0.1 (0.0-0.2) K/uL PT 13.6 H (9.7-12.2) SECONDS INR 1.2 APTT 34 (21-34) SECONDS Puncture Site pCO2 (35-45) mm/Hg pO2 (80-100) mm/Hg HCO3 (21-28) mmol/L ABG pH (7.35-7.45) ABG Total CO2 (22-28) mmol/L ABG O2 Saturation (95-98) % ABG Base Excess (-2.0-3.0) mmol/L Kush Test ABG Potassium (3.6-5.2) mmol/L A-a O2 Difference mm/Hg Respiratory Index Glucose (75-110) mg/dl Lactate (0.7-2.1) mmol/L Vent Mode Mechanical Rate FiO2 % Tidal Volume PEEP Inspiratory BiPAP Expiratory BiPAP Sodium (132-148) mmol/L Potassium (3.6-5.2) mmol/L Chloride (98-107) mmol/L Carbon Dioxide (22-30) mmol/L Anion Gap (10-20) BUN (9-20) mg/dL Creatinine (0.8-1.5) mg/dL Est GFR ( Amer) Est GFR (Non-Af Amer) POC Glucose (mg/dL) 71 (65-110) mg/dL Random Glucose (75-110) mg/dL Calcium (8.6-10.4) mg/dl Phosphorus (2.5-4.5) mg/dL Magnesium (1.6-2.3) mg/dL Total Bilirubin (0.2-1.3) mg/dL AST (17-59) U/L ALT (21-72) U/L Alkaline Phosphatase (38-126) U/L Total Protein (6.3-8.3) g/dL Albumin (3.5-5.0) g/dL Globulin (2.2-3.9) gm/dL Albumin/Globulin Ratio (1.0-2.1) Amylase (30-110) U/L Arterial Blood Potassium (3.6-5.2) mmol/L Urine Color (YELLOW) Urine Clarity (Clear) Urine pH (5.0-8.0) Ur Specific [place] (1.003-1.030) Urine Protein (NEGATIVE) mg/dL Urine Glucose (UA) (Normal) mg/dL Urine Ketones (NEGATIVE) mg/dL Urine Blood (NEGATIVE) Urine Nitrate (NEGATIVE) Urine Bilirubin (NEGATIVE) Urine Urobilinogen (0.2-1.0) mg/dL Ur Leukocyte Esterase (Negative) Niranjan/uL Urine WBC (Auto) (0-5) /hpf Urine RBC (Auto) (0-3) /hpf Salicylates mg/dL 1 Urine Opiates Screen (NEGATIVE) Urine Methadone Screen (NEGATIVE) Acetaminophen (10.0-30.0) ug/mL Ur Barbiturates Screen (NEGATIVE) Ur Phencyclidine Scrn (NEGATIVE) Ur Amphetamines Screen (NEGATIVE) U Benzodiazepines Scrn (NEGATIVE) U Oth Cocaine Metabols (NEGATIVE) U Cannabinoids Screen (NEGATIVE) Alcohol, Quantitative (0-10) mg/dl 01/10/18 01/10/18 01/10/18 Range/Units 11:28 07:38 05:23 WBC (4.8-10.8) K/uL RBC (4.40-5.90) Mil/uL Hgb (12.0-18.0) g/dL Hct (35.0-51.0) % MCV (80.0-94.0) fL MCH (27.0-31.0) pg MCHC (33.0-37.0) g/dL RDW (11.5-14.5) % Plt Count (130-400) K/uL MPV (7.2-11.7) fL Neut % (Auto) (50.0-75.0) % Lymph % (Auto) (20.0-40.0) % [place] % (Auto) (0.0-10.0) % Eos % (Auto) (0.0-4.0) % Baso % (Auto) (0.0-2.0) % Neut # (Auto) (1.8-7.0) K/uL Lymph # (Auto) (1.0-4.3) K/uL [place] # (Auto) (0.0-0.8) K/uL Eos # (Auto) (0.0-0.7) K/uL Baso # (Auto) (0.0-0.2) K/uL PT (9.7-12.2) SECONDS INR APTT (21-34) SECONDS Puncture Site pCO2 (35-45) mm/Hg pO2 (80-100) mm/Hg HCO3 (21-28) mmol/L ABG pH (7.35-7.45) ABG Total CO2 (22-28) mmol/L ABG O2 Saturation (95-98) % ABG Base Excess (-2.0-3.0) mmol/L Kush Test ABG Potassium (3.6-5.2) mmol/L A-a O2 Difference mm/Hg Respiratory Index Glucose (75-110) mg/dl Lactate (0.7-2.1) mmol/L Vent Mode Mechanical Rate FiO2 % Tidal Volume PEEP Inspiratory BiPAP Expiratory BiPAP Sodium 147 (132-148) mmol/L Potassium 3.4 L (3.6-5.2) mmol/L Chloride 108 H (98-107) mmol/L Carbon Dioxide 28 (22-30) mmol/L Anion Gap 14 (10-20) BUN 6 L (9-20) mg/dL Creatinine 0.6 L (0.8-1.5) mg/dL Est GFR ( Amer) > 60 Est GFR (Non-Af Amer) > 60 POC Glucose (mg/dL) 118 H 118 H (65-110) mg/dL Random Glucose 69 L (75-110) mg/dL Calcium 8.8 (8.6-10.4) mg/dl Phosphorus 3.0 (2.5-4.5) mg/dL Magnesium 1.8 (1.6-2.3) mg/dL Total Bilirubin 0.8 (0.2-1.3) mg/dL AST 47 (17-59) U/L ALT 43 (21-72) U/L Alkaline Phosphatase 48 (38-126) U/L Total Protein 5.8 L (6.3-8.3) g/dL Albumin 3.1 L (3.5-5.0) g/dL Globulin 2.7 (2.2-3.9) gm/dL Albumin/Globulin Ratio 1.1 (1.0-2.1) Amylase 40 (30-110) U/L Arterial Blood Potassium (3.6-5.2) mmol/L Urine Color (YELLOW) Urine Clarity (Clear) Urine pH (5.0-8.0) Ur Specific [place] (1.003-1.030) Urine Protein (NEGATIVE) mg/dL Urine Glucose (UA) (Normal) mg/dL Urine Ketones (NEGATIVE) mg/dL Urine Blood (NEGATIVE) Urine Nitrate (NEGATIVE) Urine Bilirubin (NEGATIVE) Urine Urobilinogen (0.2-1.0) mg/dL Ur Leukocyte Esterase (Negative) Niranjan/uL Urine WBC (Auto) (0-5) /hpf Urine RBC (Auto) (0-3) /hpf Salicylates mg/dL 1 Urine Opiates Screen (NEGATIVE) Urine Methadone Screen (NEGATIVE) Acetaminophen (10.0-30.0) ug/mL Ur Barbiturates Screen (NEGATIVE) Ur Phencyclidine Scrn (NEGATIVE) Ur Amphetamines Screen (NEGATIVE) U Benzodiazepines Scrn (NEGATIVE) U Oth Cocaine Metabols (NEGATIVE) U Cannabinoids Screen (NEGATIVE) Alcohol, Quantitative (0-10) mg/dl 01/10/18 01/10/18 01/10/18 Range/Units 05:18 03:59 03:59 WBC 6.1 (4.8-10.8) K/uL RBC 3.55 L (4.40-5.90) Mil/uL Hgb 11.7 L (12.0-18.0) g/dL Hct 33.9 L (35.0-51.0) % MCV 95.3 H (80.0-94.0) fL MCH 32.9 H (27.0-31.0) pg MCHC 34.5 (33.0-37.0) g/dL RDW 15.3 H (11.5-14.5) % Plt Count 245 (130-400) K/uL MPV 7.1 L (7.2-11.7) fL Neut % (Auto) 41.2 L (50.0-75.0) % Lymph % (Auto) 39.8 (20.0-40.0) % [place] % (Auto) 14.7 H (0.0-10.0) % Eos % (Auto) 3.7 (0.0-4.0) % Baso % (Auto) 0.6 (0.0-2.0) % Neut # (Auto) 2.5 (1.8-7.0) K/uL Lymph # (Auto) 2.4 (1.0-4.3) K/uL [place] # (Auto) 0.9 H (0.0-0.8) K/uL Eos # (Auto) 0.2 (0.0-0.7) K/uL Baso # (Auto) 0.0 (0.0-0.2) K/uL PT (9.7-12.2) SECONDS INR APTT (21-34) SECONDS Puncture Site Lrad pCO2 45 (35-45) mm/Hg pO2 149 H (80-100) mm/Hg HCO3 25.2 (21-28) mmol/L ABG pH 7.37 (7.35-7.45) ABG Total CO2 27.4 (22-28) mmol/L ABG O2 Saturation 99.9 H (95-98) % ABG Base Excess 0.3 (-2.0-3.0) mmol/L Kush Test Pos ABG Potassium 3.2 L (3.6-5.2) mmol/L A-a O2 Difference 80.0 mm/Hg Respiratory Index 0.5 Glucose 110 (75-110) mg/dl Lactate 2.6 H (0.7-2.1) mmol/L Vent Mode Prvc Mechanical Rate 20 FiO2 40.0 % Tidal Volume 500 PEEP 5 Inspiratory BiPAP Expiratory BiPAP Sodium 145.0 146 (132-148) mmol/L Potassium 3.5 L (3.6-5.2) mmol/L Chloride 110.0 H 108 H (98-107) mmol/L Carbon Dioxide 25 (22-30) mmol/L Anion Gap 16 (10-20) BUN 7 L (9-20) mg/dL Creatinine 0.5 L (0.8-1.5) mg/dL Est GFR ( Amer) > 60 Est GFR (Non-Af Amer) > 60 POC Glucose (mg/dL) (65-110) mg/dL Random Glucose 166 H (75-110) mg/dL Calcium 6.9 L (8.6-10.4) mg/dl Phosphorus (2.5-4.5) mg/dL Magnesium 1.9 (1.6-2.3) mg/dL Total Bilirubin 0.3 (0.2-1.3) mg/dL AST 46 (17-59) U/L ALT 37 (21-72) U/L Alkaline Phosphatase 48 (38-126) U/L Total Protein 5.3 L (6.3-8.3) g/dL Albumin 3.0 L D (3.5-5.0) g/dL Globulin 2.3 (2.2-3.9) gm/dL Albumin/Globulin Ratio 1.3 (1.0-2.1) Amylase (30-110) U/L Arterial Blood Potassium 3.2 L (3.6-5.2) mmol/L Urine Color (YELLOW) Urine Clarity (Clear) Urine pH (5.0-8.0) Ur Specific [place] (1.003-1.030) Urine Protein (NEGATIVE) mg/dL Urine Glucose (UA) (Normal) mg/dL Urine Ketones (NEGATIVE) mg/dL Urine Blood (NEGATIVE) Urine Nitrate (NEGATIVE) Urine Bilirubin (NEGATIVE) Urine Urobilinogen (0.2-1.0) mg/dL Ur Leukocyte Esterase (Negative) Niranjan/uL Urine WBC (Auto) (0-5) /hpf Urine RBC (Auto) (0-3) /hpf Salicylates mg/dL 1 Urine Opiates Screen (NEGATIVE) Urine Methadone Screen (NEGATIVE) Acetaminophen (10.0-30.0) ug/mL Ur Barbiturates Screen (NEGATIVE) Ur Phencyclidine Scrn (NEGATIVE) Ur Amphetamines Screen (NEGATIVE) U Benzodiazepines Scrn (NEGATIVE) U Oth Cocaine Metabols (NEGATIVE) U Cannabinoids Screen (NEGATIVE) Alcohol, Quantitative (0-10) mg/dl 01/10/18 01/10/18 01/10/18 Range/Units 03:31 02:36 02:02 WBC (4.8-10.8) K/uL RBC (4.40-5.90) Mil/uL Hgb (12.0-18.0) g/dL Hct (35.0-51.0) % MCV (80.0-94.0) fL MCH (27.0-31.0) pg MCHC (33.0-37.0) g/dL RDW (11.5-14.5) % Plt Count (130-400) K/uL MPV (7.2-11.7) fL Neut % (Auto) (50.0-75.0) % Lymph % (Auto) (20.0-40.0) % [place] % (Auto) (0.0-10.0) % Eos % (Auto) (0.0-4.0) % Baso % (Auto) (0.0-2.0) % Neut # (Auto) (1.8-7.0) K/uL Lymph # (Auto) (1.0-4.3) K/uL [place] # (Auto) (0.0-0.8) K/uL Eos # (Auto) (0.0-0.7) K/uL Baso # (Auto) (0.0-0.2) K/uL PT (9.7-12.2) SECONDS INR APTT (21-34) SECONDS Puncture Site R brac pCO2 52 H (35-45) mm/Hg pO2 160 H (80-100) mm/Hg HCO3 27.8 (21-28) mmol/L ABG pH 7.37 (7.35-7.45) ABG Total CO2 31.7 H (22-28) mmol/L ABG O2 Saturation 99.7 H (95-98) % ABG Base Excess 3.6 H (-2.0-3.0) mmol/L Kush Test Na ABG Potassium 3.2 L (3.6-5.2) mmol/L A-a O2 Difference -11.0 mm/Hg Respiratory Index -0.1 Glucose 83 (75-110) mg/dl Lactate 1.7 (0.7-2.1) mmol/L Vent Mode Bipap Mechanical Rate 16 FiO2 30.0 % Tidal Volume PEEP Inspiratory BiPAP 12 Expiratory BiPAP 6 Sodium 146.0 (132-148) mmol/L Potassium (3.6-5.2) mmol/L Chloride 112.0 H (98-107) mmol/L Carbon Dioxide (22-30) mmol/L Anion Gap (10-20) BUN (9-20) mg/dL Creatinine (0.8-1.5) mg/dL Est GFR ( Amer) Est GFR (Non-Af Amer) POC Glucose (mg/dL) 81 70 (65-110) mg/dL Random Glucose (75-110) mg/dL Calcium (8.6-10.4) mg/dl Phosphorus (2.5-4.5) mg/dL Magnesium (1.6-2.3) mg/dL Total Bilirubin (0.2-1.3) mg/dL AST (17-59) U/L ALT (21-72) U/L Alkaline Phosphatase (38-126) U/L Total Protein (6.3-8.3) g/dL Albumin (3.5-5.0) g/dL Globulin (2.2-3.9) gm/dL Albumin/Globulin Ratio (1.0-2.1) Amylase (30-110) U/L Arterial Blood Potassium 3.2 L (3.6-5.2) mmol/L Urine Color (YELLOW) Urine Clarity (Clear) Urine pH (5.0-8.0) Ur Specific [place] (1.003-1.030) Urine Protein (NEGATIVE) mg/dL Urine Glucose (UA) (Normal) mg/dL Urine Ketones (NEGATIVE) mg/dL Urine Blood (NEGATIVE) Urine Nitrate (NEGATIVE) Urine Bilirubin (NEGATIVE) Urine Urobilinogen (0.2-1.0) mg/dL Ur Leukocyte Esterase (Negative) Niranjan/uL Urine WBC (Auto) (0-5) /hpf Urine RBC (Auto) (0-3) /hpf Salicylates mg/dL 1 Urine Opiates Screen (NEGATIVE) Urine Methadone Screen (NEGATIVE) Acetaminophen (10.0-30.0) ug/mL Ur Barbiturates Screen (NEGATIVE) Ur Phencyclidine Scrn (NEGATIVE) Ur Amphetamines Screen (NEGATIVE) U Benzodiazepines Scrn (NEGATIVE) U Oth Cocaine Metabols (NEGATIVE) U Cannabinoids Screen (NEGATIVE) Alcohol, Quantitative (0-10) mg/dl 01/09/18 01/09/18 01/09/18 Range/Units 23:42 23:42 23:30 WBC (4.8-10.8) K/uL RBC (4.40-5.90) Mil/uL Hgb (12.0-18.0) g/dL Hct (35.0-51.0) % MCV (80.0-94.0) fL MCH (27.0-31.0) pg MCHC (33.0-37.0) g/dL RDW (11.5-14.5) % Plt Count (130-400) K/uL MPV (7.2-11.7) fL Neut % (Auto) (50.0-75.0) % Lymph % (Auto) (20.0-40.0) % [place] % (Auto) (0.0-10.0) % Eos % (Auto) (0.0-4.0) % Baso % (Auto) (0.0-2.0) % Neut # (Auto) (1.8-7.0) K/uL Lymph # (Auto) (1.0-4.3) K/uL [place] # (Auto) (0.0-0.8) K/uL Eos # (Auto) (0.0-0.7) K/uL Baso # (Auto) (0.0-0.2) K/uL PT (9.7-12.2) SECONDS INR APTT (21-34) SECONDS Puncture Site pCO2 (35-45) mm/Hg pO2 (80-100) mm/Hg HCO3 (21-28) mmol/L ABG pH (7.35-7.45) ABG Total CO2 (22-28) mmol/L ABG O2 Saturation (95-98) % ABG Base Excess (-2.0-3.0) mmol/L Kush Test ABG Potassium (3.6-5.2) mmol/L A-a O2 Difference mm/Hg Respiratory Index Glucose (75-110) mg/dl Lactate (0.7-2.1) mmol/L Vent Mode Mechanical Rate FiO2 % Tidal Volume PEEP Inspiratory BiPAP Expiratory BiPAP Sodium (132-148) mmol/L Potassium (3.6-5.2) mmol/L Chloride (98-107) mmol/L Carbon Dioxide (22-30) mmol/L Anion Gap (10-20) BUN (9-20) mg/dL Creatinine (0.8-1.5) mg/dL Est GFR ( Amer) Est GFR (Non-Af Amer) POC Glucose (mg/dL) 107 (65-110) mg/dL Random Glucose (75-110) mg/dL Calcium (8.6-10.4) mg/dl Phosphorus (2.5-4.5) mg/dL Magnesium (1.6-2.3) mg/dL Total Bilirubin (0.2-1.3) mg/dL AST (17-59) U/L ALT (21-72) U/L Alkaline Phosphatase (38-126) U/L Total Protein (6.3-8.3) g/dL Albumin (3.5-5.0) g/dL Globulin (2.2-3.9) gm/dL Albumin/Globulin Ratio (1.0-2.1) Amylase (30-110) U/L Arterial Blood Potassium (3.6-5.2) mmol/L Urine Color Yellow (YELLOW) Urine Clarity Clear (Clear) Urine pH 5.0 (5.0-8.0) Ur Specific [place] 1.013 (1.003-1.030) Urine Protein Negative (NEGATIVE) mg/dL Urine Glucose (UA) Normal (Normal) mg/dL Urine Ketones Negative (NEGATIVE) mg/dL Urine Blood Negative (NEGATIVE) Urine Nitrate Negative (NEGATIVE) Urine Bilirubin Negative (NEGATIVE) Urine Urobilinogen Normal (0.2-1.0) mg/dL Ur Leukocyte Esterase Neg (Negative) Niranjan/uL Urine WBC (Auto) 1 (0-5) /hpf Urine RBC (Auto) < 1 (0-3) /hpf Salicylates mg/dL 1 Urine Opiates Screen Negative (NEGATIVE) Urine Methadone Screen Negative (NEGATIVE) Acetaminophen (10.0-30.0) ug/mL Ur Barbiturates Screen Negative (NEGATIVE) Ur Phencyclidine Scrn Negative (NEGATIVE) Ur Amphetamines Screen Negative (NEGATIVE) U Benzodiazepines Scrn Positive (NEGATIVE) U Oth Cocaine Metabols Negative (NEGATIVE) U Cannabinoids Screen Positive H (NEGATIVE) Alcohol, Quantitative (0-10) mg/dl 01/09/18 01/09/18 01/09/18 Range/Units 23:28 23:17 23:17 WBC (4.8-10.8) K/uL RBC (4.40-5.90) Mil/uL Hgb (12.0-18.0) g/dL Hct (35.0-51.0) % MCV (80.0-94.0) fL MCH (27.0-31.0) pg MCHC (33.0-37.0) g/dL RDW (11.5-14.5) % Plt Count (130-400) K/uL MPV (7.2-11.7) fL Neut % (Auto) (50.0-75.0) % Lymph % (Auto) (20.0-40.0) % [place] % (Auto) (0.0-10.0) % Eos % (Auto) (0.0-4.0) % Baso % (Auto) (0.0-2.0) % Neut # (Auto) (1.8-7.0) K/uL Lymph # (Auto) (1.0-4.3) K/uL [place] # (Auto) (0.0-0.8) K/uL Eos # (Auto) (0.0-0.7) K/uL Baso # (Auto) (0.0-0.2) K/uL PT (9.7-12.2) SECONDS INR APTT (21-34) SECONDS Puncture Site pCO2 (35-45) mm/Hg pO2 (80-100) mm/Hg HCO3 (21-28) mmol/L ABG pH (7.35-7.45) ABG Total CO2 (22-28) mmol/L ABG O2 Saturation (95-98) % ABG Base Excess (-2.0-3.0) mmol/L Kush Test ABG Potassium (3.6-5.2) mmol/L A-a O2 Difference mm/Hg Respiratory Index Glucose (75-110) mg/dl Lactate (0.7-2.1) mmol/L Vent Mode Mechanical Rate FiO2 % Tidal Volume PEEP Inspiratory BiPAP Expiratory BiPAP Sodium 149 H (132-148) mmol/L Potassium 3.4 L (3.6-5.2) mmol/L Chloride 106 (98-107) mmol/L Carbon Dioxide 27 (22-30) mmol/L Anion Gap 20 (10-20) BUN 8 L (9-20) mg/dL Creatinine 0.7 L (0.8-1.5) mg/dL Est GFR ( Amer) > 60 Est GFR (Non-Af Amer) > 60 POC Glucose (mg/dL) (65-110) mg/dL Random Glucose 119 H (75-110) mg/dL Calcium 8.6 (8.6-10.4) mg/dl Phosphorus (2.5-4.5) mg/dL Magnesium 2.2 (1.6-2.3) mg/dL Total Bilirubin 0.3 (0.2-1.3) mg/dL AST 69 H D (17-59) U/L ALT 45 (21-72) U/L Alkaline Phosphatase 56 (38-126) U/L Total Protein 7.1 (6.3-8.3) g/dL Albumin 4.1 (3.5-5.0) g/dL Globulin 3.0 (2.2-3.9) gm/dL Albumin/Globulin Ratio 1.3 (1.0-2.1) Amylase (30-110) U/L Arterial Blood Potassium (3.6-5.2) mmol/L Urine Color (YELLOW) Urine Clarity (Clear) Urine pH (5.0-8.0) Ur Specific [place] (1.003-1.030) Urine Protein (NEGATIVE) mg/dL Urine Glucose (UA) (Normal) mg/dL Urine Ketones (NEGATIVE) mg/dL Urine Blood (NEGATIVE) Urine Nitrate (NEGATIVE) Urine Bilirubin (NEGATIVE) Urine Urobilinogen (0.2-1.0) mg/dL Ur Leukocyte Esterase (Negative) Niranjan/uL Urine WBC (Auto) (0-5) /hpf Urine RBC (Auto) (0-3) /hpf Salicylates < 1.0 mg/dL 1 Urine Opiates Screen (NEGATIVE) Urine Methadone Screen (NEGATIVE) Acetaminophen < 10.0 L (10.0-30.0) ug/mL Ur Barbiturates Screen (NEGATIVE) Ur Phencyclidine Scrn (NEGATIVE) Ur Amphetamines Screen (NEGATIVE) U Benzodiazepines Scrn (NEGATIVE) U Oth Cocaine Metabols (NEGATIVE) U Cannabinoids Screen (NEGATIVE) Alcohol, Quantitative 174 H (0-10) mg/dl 01/09/18 Range/Units 23:17 WBC 6.6 (4.8-10.8) K/uL RBC 3.98 L (4.40-5.90) Mil/uL Hgb 13.2 D (12.0-18.0) g/dL Hct 37.7 (35.0-51.0) % MCV 94.9 H (80.0-94.0) fL MCH 33.2 H (27.0-31.0) pg MCHC 35.0 (33.0-37.0) g/dL RDW 15.4 H (11.5-14.5) % Plt Count 279 (130-400) K/uL MPV 7.2 (7.2-11.7) fL Neut % (Auto) 53.0 (50.0-75.0) % Lymph % (Auto) 30.3 (20.0-40.0) % [place] % (Auto) 13.8 H (0.0-10.0) % Eos % (Auto) 2.2 (0.0-4.0) % Baso % (Auto) 0.7 (0.0-2.0) % Neut # (Auto) 3.5 (1.8-7.0) K/uL Lymph # (Auto) 2.0 (1.0-4.3) K/uL [place] # (Auto) 0.9 H (0.0-0.8) K/uL Eos # (Auto) 0.1 (0.0-0.7) K/uL Baso # (Auto) 0.0 (0.0-0.2) K/uL PT (9.7-12.2) SECONDS INR APTT (21-34) SECONDS Puncture Site pCO2 (35-45) mm/Hg pO2 (80-100) mm/Hg HCO3 (21-28) mmol/L ABG pH (7.35-7.45) ABG Total CO2 (22-28) mmol/L ABG O2 Saturation (95-98) % ABG Base Excess (-2.0-3.0) mmol/L Kush Test ABG Potassium (3.6-5.2) mmol/L A-a O2 Difference mm/Hg Respiratory Index Glucose (75-110) mg/dl Lactate (0.7-2.1) mmol/L Vent Mode Mechanical Rate FiO2 % Tidal Volume PEEP Inspiratory BiPAP Expiratory BiPAP Sodium (132-148) mmol/L Potassium (3.6-5.2) mmol/L Chloride (98-107) mmol/L Carbon Dioxide (22-30) mmol/L Anion Gap (10-20) BUN (9-20) mg/dL Creatinine (0.8-1.5) mg/dL Est GFR ( Amer) Est GFR (Non-Af Amer) POC Glucose (mg/dL) (65-110) mg/dL Random Glucose (75-110) mg/dL Calcium (8.6-10.4) mg/dl Phosphorus (2.5-4.5) mg/dL Magnesium (1.6-2.3) mg/dL Total Bilirubin (0.2-1.3) mg/dL AST (17-59) U/L ALT (21-72) U/L Alkaline Phosphatase (38-126) U/L Total Protein (6.3-8.3) g/dL Albumin (3.5-5.0) g/dL Globulin (2.2-3.9) gm/dL Albumin/Globulin Ratio (1.0-2.1) Amylase (30-110) U/L Arterial Blood Potassium (3.6-5.2) mmol/L Urine Color (YELLOW) Urine Clarity (Clear) Urine pH (5.0-8.0) Ur Specific [place] (1.003-1.030) Urine Protein (NEGATIVE) mg/dL Urine Glucose (UA) (Normal) mg/dL Urine Ketones (NEGATIVE) mg/dL Urine Blood (NEGATIVE) Urine Nitrate (NEGATIVE) Urine Bilirubin (NEGATIVE) Urine Urobilinogen (0.2-1.0) mg/dL Ur Leukocyte Esterase (Negative) [place]/uL Urine WBC (Auto) (0-5) /hpf Urine RBC (Auto) (0-3) /hpf Salicylates mg/dL 1 Urine Opiates Screen (NEGATIVE) Urine Methadone Screen (NEGATIVE) Acetaminophen (10.0-30.0) ug/mL Ur Barbiturates Screen (NEGATIVE) Ur Phencyclidine Scrn (NEGATIVE) Ur Amphetamines Screen (NEGATIVE) U Benzodiazepines Scrn (NEGATIVE) U Oth Cocaine Metabols (NEGATIVE) U Cannabinoids Screen (NEGATIVE) Alcohol, Quantitative (0-10) mg/dl Laboratory Results - last 24 hr 01/09/18 01/09/18 01/09/18 23:17 23:17 23:17 WBC 6.6 RBC 3.98 L Hgb 13.2 D Hct 37.7 MCV 94.9 H MCH 33.2 H MCHC 35.0 RDW 15.4 H Plt Count 279 MPV 7.2 Neut % (Auto) 53.0 Lymph % (Auto) 30.3 [place] % (Auto) 13.8 H Eos % (Auto) 2.2 Baso % (Auto) 0.7 Neut # (Auto) 3.5 Lymph # (Auto) 2.0 [place] # (Auto) 0.9 H Eos # (Auto) 0.1 Baso # (Auto) 0.0 PT INR APTT Puncture Site pCO2 pO2 HCO3 ABG pH ABG Total CO2 ABG O2 Saturation ABG Base Excess Kush Test ABG Potassium A-a O2 Difference Respiratory Index Glucose Lactate Vent Mode Mechanical Rate FiO2 Tidal Volume PEEP Inspiratory BiPAP Expiratory BiPAP Sodium 149 H Potassium 3.4 L Chloride 106 Carbon Dioxide 27 Anion Gap 20 BUN 8 L Creatinine 0.7 L Est GFR ( Amer) > 60 Est GFR (Non-Af Amer) > 60 POC Glucose (mg/dL) Random Glucose 119 H Calcium 8.6 Phosphorus Magnesium Total Bilirubin 0.3 AST 69 H D ALT 45 Alkaline Phosphatase 56 Total Protein 7.1 Albumin 4.1 Globulin 3.0 Albumin/Globulin Ratio 1.3 Amylase Arterial Blood Potassium Urine Color Urine Clarity Urine pH Ur Specific [place] Urine Protein Urine Glucose (UA) Urine Ketones Urine Blood Urine Nitrate Urine Bilirubin Urine Urobilinogen Ur Leukocyte Esterase Urine WBC (Auto) Urine RBC (Auto) Salicylates < 1.0 Urine Opiates Screen Urine Methadone Screen Acetaminophen < 10.0 L Ur Barbiturates Screen Ur Phencyclidine Scrn Ur Amphetamines Screen U Benzodiazepines Scrn U Oth Cocaine Metabols U Cannabinoids Screen Alcohol, Quantitative 174 H 01/09/18 01/09/18 01/09/18 23:28 23:30 23:42 WBC RBC Hgb Hct MCV MCH MCHC RDW Plt Count MPV Neut % (Auto) Lymph % (Auto) [place] % (Auto) Eos % (Auto) Baso % (Auto) Neut # (Auto) Lymph # (Auto) [place] # (Auto) Eos # (Auto) Baso # (Auto) PT INR APTT Puncture Site pCO2 pO2 HCO3 ABG pH ABG Total CO2 ABG O2 Saturation ABG Base Excess Kush Test ABG Potassium A-a O2 Difference Respiratory Index Glucose Lactate Vent Mode Mechanical Rate FiO2 Tidal Volume PEEP Inspiratory BiPAP Expiratory BiPAP Sodium Potassium Chloride Carbon Dioxide Anion Gap BUN Creatinine Est GFR ( Amer) Est GFR (Non-Af Amer) POC Glucose (mg/dL) 107 Random Glucose Calcium Phosphorus Magnesium 2.2 Total Bilirubin AST ALT Alkaline Phosphatase Total Protein Albumin Globulin Albumin/Globulin Ratio Amylase Arterial Blood Potassium Urine Color Yellow Urine Clarity Clear Urine pH 5.0 Ur Specific [place] 1.013 Urine Protein Negative Urine Glucose (UA) Normal Urine Ketones Negative Urine Blood Negative Urine Nitrate Negative Urine Bilirubin Negative Urine Urobilinogen Normal Ur Leukocyte Esterase Neg Urine WBC (Auto) 1 Urine RBC (Auto) < 1 Salicylates Urine Opiates Screen Urine Methadone Screen Acetaminophen Ur Barbiturates Screen Ur Phencyclidine Scrn Ur Amphetamines Screen U Benzodiazepines Scrn U Oth Cocaine Metabols U Cannabinoids Screen Alcohol, Quantitative 05/13/18 05/14/18 05/14/18 23:42 02:02 02:36 WBC RBC Hgb Hct MCV MCH MCHC RDW Plt Count MPV Neut % (Auto) Lymph % (Auto) [place] % (Auto) Eos % (Auto) Baso % (Auto) Neut # (Auto) Lymph # (Auto) [place] # (Auto) Eos # (Auto) Baso # (Auto) PT INR APTT Puncture Site R brac pCO2 52 H pO2 160 H HCO3 27.8 ABG pH 7.37 ABG Total CO2 31.7 H ABG O2 Saturation 99.7 H ABG Base Excess 3.6 H Kush Test Na ABG Potassium 3.2 L A-a O2 Difference -11.0 Respiratory Index -0.1 Glucose 83 Lactate 1.7 Vent Mode Bipap Mechanical Rate 16 FiO2 30.0 Tidal Volume PEEP Inspiratory BiPAP 12 Expiratory BiPAP 6 Sodium 146.0 Potassium Chloride 112.0 H Carbon Dioxide Anion Gap BUN Creatinine Est GFR ( Amer) Est GFR (Non-Af Amer) POC Glucose (mg/dL) 70 Random Glucose Calcium Phosphorus Magnesium Total Bilirubin AST ALT Alkaline Phosphatase Total Protein Albumin Globulin Albumin/Globulin Ratio Amylase Arterial Blood Potassium 3.2 L Urine Color Urine Clarity Urine pH Ur Specific [place] Urine Protein Urine Glucose (UA) Urine Ketones Urine Blood Urine Nitrate Urine Bilirubin Urine Urobilinogen Ur Leukocyte Esterase Urine WBC (Auto) Urine RBC (Auto) Salicylates Urine Opiates Screen Negative Urine Methadone Screen Negative Acetaminophen Ur Barbiturates Screen Negative Ur Phencyclidine Scrn Negative Ur Amphetamines Screen Negative U Benzodiazepines Scrn Positive U Oth Cocaine Metabols Negative U Cannabinoids Screen Positive H Alcohol, Quantitative 01/10/18 01/10/18 01/10/18 03:31 03:59 03:59 WBC 6.1 RBC 3.55 L Hgb 11.7 L Hct 33.9 L MCV 95.3 H MCH 32.9 H MCHC 34.5 RDW 15.3 H Plt Count 245 MPV 7.1 L Neut % (Auto) 41.2 L Lymph % (Auto) 39.8 [place] % (Auto) 14.7 H Eos % (Auto) 3.7 Baso % (Auto) 0.6 Neut # (Auto) 2.5 Lymph # (Auto) 2.4 [place] # (Auto) 0.9 H Eos # (Auto) 0.2 Baso # (Auto) 0.0 PT INR APTT Puncture Site pCO2 pO2 HCO3 ABG pH ABG Total CO2 ABG O2 Saturation ABG Base Excess Kush Test ABG Potassium A-a O2 Difference Respiratory Index Glucose Lactate Vent Mode Mechanical Rate FiO2 Tidal Volume PEEP Inspiratory BiPAP Expiratory BiPAP Sodium 146 Potassium 3.5 L Chloride 108 H Carbon Dioxide 25 Anion Gap 16 BUN 7 L Creatinine 0.5 L Est GFR ( Amer) > 60 Est GFR (Non-Af Amer) > 60 POC Glucose (mg/dL) 81 Random Glucose 166 H Calcium 6.9 L Phosphorus Magnesium 1.9 Total Bilirubin 0.3 AST 46 ALT 37 Alkaline Phosphatase 48 Total Protein 5.3 L Albumin 3.0 L D Globulin 2.3 Albumin/Globulin Ratio 1.3 Amylase Arterial Blood Potassium Urine Color Urine Clarity Urine pH Ur Specific [place] Urine Protein Urine Glucose (UA) Urine Ketones Urine Blood Urine Nitrate Urine Bilirubin Urine Urobilinogen Ur Leukocyte Esterase Urine WBC (Auto) Urine RBC (Auto) Salicylates Urine Opiates Screen Urine Methadone Screen Acetaminophen Ur Barbiturates Screen Ur Phencyclidine Scrn Ur Amphetamines Screen U Benzodiazepines Scrn U Oth Cocaine Metabols U Cannabinoids Screen Alcohol, Quantitative 01/10/18 01/10/18 01/10/18 05:18 05:23 07:38 WBC RBC Hgb Hct MCV MCH MCHC RDW Plt Count MPV Neut % (Auto) Lymph % (Auto) [place] % (Auto) Eos % (Auto) Baso % (Auto) Neut # (Auto) Lymph # (Auto) [place] # (Auto) Eos # (Auto) Baso # (Auto) PT INR APTT Puncture Site Lrad pCO2 45 pO2 149 H HCO3 25.2 ABG pH 7.37 ABG Total CO2 27.4 ABG O2 Saturation 99.9 H ABG Base Excess 0.3 Kush Test Pos ABG Potassium 3.2 L A-a O2 Difference 80.0 Respiratory Index 0.5 Glucose 110 Lactate 2.6 H Vent Mode Prvc Mechanical Rate 20 FiO2 40.0 Tidal Volume 500 PEEP 5 Inspiratory BiPAP Expiratory BiPAP Sodium 145.0 Potassium Chloride 110.0 H Carbon Dioxide Anion Gap BUN Creatinine Est GFR ( Amer) Est GFR (Non-Af Amer) POC Glucose (mg/dL) 118 H 118 H Random Glucose Calcium Phosphorus Magnesium Total Bilirubin AST ALT Alkaline Phosphatase Total Protein Albumin Globulin Albumin/Globulin Ratio Amylase Arterial Blood Potassium 3.2 L Urine Color Urine Clarity Urine pH Ur Specific [place] Urine Protein Urine Glucose (UA) Urine Ketones Urine Blood Urine Nitrate Urine Bilirubin Urine Urobilinogen Ur Leukocyte Esterase Urine WBC (Auto) Urine RBC (Auto) Salicylates Urine Opiates Screen Urine Methadone Screen Acetaminophen Ur Barbiturates Screen Ur Phencyclidine Scrn Ur Amphetamines Screen U Benzodiazepines Scrn U Oth Cocaine Metabols U Cannabinoids Screen Alcohol, Quantitative 01/10/18 01/10/18 01/10/18 11:28 11:28 11:28 WBC 7.4 RBC 3.47 L Hgb 11.6 L Hct 33.2 L MCV 95.4 H MCH 33.5 H MCHC 35.1 RDW 15.5 H Plt Count 272 MPV 7.3 Neut % (Auto) 64.4 Lymph % (Auto) 22.5 [place] % (Auto) 9.8 Eos % (Auto) 2.3 Baso % (Auto) 1.0 Neut # (Auto) 4.8 Lymph # (Auto) 1.7 [place] # (Auto) 0.7 Eos # (Auto) 0.2 Baso # (Auto) 0.1 PT 13.6 H INR 1.2 APTT 34 Puncture Site pCO2 pO2 HCO3 ABG pH ABG Total CO2 ABG O2 Saturation ABG Base Excess Kush Test ABG Potassium A-a O2 Difference Respiratory Index Glucose Lactate Vent Mode Mechanical Rate FiO2 Tidal Volume PEEP Inspiratory BiPAP Expiratory BiPAP Sodium 147 Potassium 3.4 L Chloride 108 H Carbon Dioxide 28 Anion Gap 14 BUN 6 L Creatinine 0.6 L Est GFR ( Amer) > 60 Est GFR (Non-Af Amer) > 60 POC Glucose (mg/dL) Random Glucose 69 L Calcium 8.8 Phosphorus 3.0 Magnesium 1.8 Total Bilirubin 0.8 AST 47 ALT 43 Alkaline Phosphatase 48 Total Protein 5.8 L Albumin 3.1 L Globulin 2.7 Albumin/Globulin Ratio 1.1 Amylase 40 Arterial Blood Potassium Urine Color Urine Clarity Urine pH Ur Specific [place] Urine Protein Urine Glucose (UA) Urine Ketones Urine Blood Urine Nitrate Urine Bilirubin Urine Urobilinogen Ur Leukocyte Esterase Urine WBC (Auto) Urine RBC (Auto) Salicylates Urine Opiates Screen Urine Methadone Screen Acetaminophen Ur Barbiturates Screen Ur Phencyclidine Scrn Ur Amphetamines Screen U Benzodiazepines Scrn U Oth Cocaine Metabols U Cannabinoids Screen Alcohol, Quantitative 01/10/18 11:34 WBC RBC Hgb Hct MCV MCH MCHC RDW Plt Count MPV Neut % (Auto) Lymph % (Auto) [place] % (Auto) Eos % (Auto) Baso % (Auto) Neut # (Auto) Lymph # (Auto) [place] # (Auto) Eos # (Auto) Baso # (Auto) PT INR APTT Puncture Site pCO2 pO2 HCO3 ABG pH ABG Total CO2 ABG O2 Saturation ABG Base Excess Kush Test ABG Potassium A-a O2 Difference Respiratory Index Glucose Lactate Vent Mode Mechanical Rate FiO2 Tidal Volume PEEP Inspiratory BiPAP Expiratory BiPAP Sodium Potassium Chloride Carbon Dioxide Anion Gap BUN Creatinine Est GFR ( Amer) Est GFR (Non-Af Amer) POC Glucose (mg/dL) 71 Random Glucose Calcium Phosphorus Magnesium Total Bilirubin AST ALT Alkaline Phosphatase Total Protein Albumin Globulin Albumin/Globulin Ratio Amylase Arterial Blood Potassium Urine Color Urine Clarity Urine pH Ur Specific [place] Urine Protein Urine Glucose (UA) Urine Ketones Urine Blood Urine Nitrate Urine Bilirubin Urine Urobilinogen Ur Leukocyte Esterase Urine WBC (Auto) Urine RBC (Auto) Salicylates Urine Opiates Screen Urine Methadone Screen Acetaminophen Ur Barbiturates Screen Ur Phencyclidine Scrn Ur Amphetamines Screen U Benzodiazepines Scrn U Oth Cocaine Metabols U Cannabinoids Screen Alcohol, Quantitative EKG/Cardiology Studies: Cardiology / EKG Studies 01/09/18 23:05 EKG [ELECTROCARDIOGRAM] Stat Comment: Mode Of Transportation: BED Reason For Exam: cp 01/09/18 23:26 ELECTROCARDIOGRAM Stat Comment: ed 8b Mode Of Transportation: STRETCHER Reason For Exam: weakness 01/10/18 03:38 EKG [ELECTROCARDIOGRAM] Stat Comment: Mode Of Transportation: BED Reason For Exam: cp 01/10/18 03:42 EKG [ELECTROCARDIOGRAM] Stat Comment: Mode Of Transportation: Reason For Exam: drug OD 01/10/18 04:11 EKG [ELECTROCARDIOGRAM] Q6H Comment: Mode Of Transportation: Reason For Exam: qtc 01/10/18 10:11 EKG [ELECTROCARDIOGRAM] Q6H Comment: Mode Of Transportation: Reason For Exam: qtc 01/10/18 16:11 EKG [ELECTROCARDIOGRAM] Q6H Comment: Mode Of Transportation: Reason For Exam: qtc 01/10/18 22:11 EKG [ELECTROCARDIOGRAM] Q6H Comment: Mode Of Transportation: Reason For Exam: qtc Fingerstick Blood Sugar Results: 81 Assessment/Plan - Assessment and Plan (Free Text) Assessment: 37 y/o male with pmx of depression, bipolar, ADHA and suicidal attempts presents to [facility] admitted to ICU for evaluation and treatment of OD. Plan: AMS: F/U EEG, CT negative for Acute abnormaltities Elevated EtOH lvl and Cannibinoid Positive Cont. Bananna bag, Ativan PRN Started DuoNebs PRN Patient discussed with Attending Marizol Hu, PGY-1 <Deepthi Guardado - Last Filed: 01/10/18 12:44> CCU Subjective - Physician Review Critical Care Time Spent (in minutes): 30 CCU Objective - Vital Signs / Intake & Output Intake and Output (Last 8hrs): Intake & Output 01/09/18 01/10/18 01/10/18 22:59 06:59 14:59 Intake Total 2000 Output Total 600 Balance 1400 Weight 176 lb 5.917 oz Intake: IV 2000 Output: Gastric Amount 200 Urine 400 Other: Voiding Method Indwelling Catheter - Medications Active Medications: Active Medications Generic Name Dose Route Start Last Admin Trade Name Freq PRN Reason Stop Dose Admin Albuterol/Ipratropium 3 ml 01/10/18 09:20 Duoneb 3 Mg/0.5 Mg (3 Ml) Ud INH RQ6 PRN Shortness of Breath Heparin Sodium (Porcine) 5,000 units 01/10/18 14:00 Heparin SC Q8 BRIAN Folic Acid 1 mg/ Thiamine HCl 1,011.2 mls @ 42 mls/hr 01/10/18 00:00 01:11 100 mg/ Multivitamins/Vitamin IV 42 mls/hr C 10 ml/ Dextrose .Q24H BRIAN Administration Propofol 1,000 mg in 100 mls @ 2.313 mls/hr 01/10/18 03:16 01/10/18 03:34 Diprivan IV 5 mcg/kg/min .Q24H PRN 2.313 mls/hr TITRATE PER MD ORDER Administration Protocol 5 MCG/KG/MIN Lactated Ringer's 1,000 mls @ 100 mls/hr 01/10/18 04:15 01/10/18 05:22 Lactated Ringer's IV 100 mls/hr .Q10H BRIAN Administration Lorazepam 2 mg 05/14/18 09:17 Ativan IVP Q4H PRN Anxiety Pantoprazole Sodium 40 mg 01/10/18 10:00 Protonix Inj IVP DAILY BRIAN - Patient Studies Lab Studies: Lab Studies 01/10/18 01/10/18 01/10/18 Range/Units 11:34 11:28 11:28 WBC 7.4 (4.8-10.8) K/uL RBC 3.47 L (4.40-5.90) Mil/uL Hgb 11.6 L (12.0-18.0) g/dL Hct 33.2 L (35.0-51.0) % MCV 95.4 H (80.0-94.0) fL MCH 33.5 H (27.0-31.0) pg MCHC 35.1 (33.0-37.0) g/dL RDW 15.5 H (11.5-14.5) % Plt Count 272 (130-400) K/uL MPV 7.3 (7.2-11.7) fL Neut % (Auto) 64.4 (50.0-75.0) % Lymph % (Auto) 22.5 (20.0-40.0) % [place] % (Auto) 9.8 (0.0-10.0) % Eos % (Auto) 2.3 (0.0-4.0) % Baso % (Auto) 1.0 (0.0-2.0) % Neut # (Auto) 4.8 (1.8-7.0) K/uL Lymph # (Auto) 1.7 (1.0-4.3) K/uL [place] # (Auto) 0.7 (0.0-0.8) K/uL Eos # (Auto) 0.2 (0.0-0.7) K/uL Baso # (Auto) 0.1 (0.0-0.2) K/uL PT 13.6 H (9.7-12.2) SECONDS INR 1.2 APTT 34 (21-34) SECONDS Puncture Site pCO2 (35-45) mm/Hg pO2 (80-100) mm/Hg HCO3 (21-28) mmol/L ABG pH (7.35-7.45) ABG Total CO2 (22-28) mmol/L ABG O2 Saturation (95-98) % ABG Base Excess (-2.0-3.0) mmol/L Kush Test ABG Potassium (3.6-5.2) mmol/L A-a O2 Difference mm/Hg Respiratory Index Glucose (75-110) mg/dl Lactate (0.7-2.1) mmol/L Vent Mode Mechanical Rate FiO2 % Tidal Volume PEEP Inspiratory BiPAP Expiratory BiPAP Sodium (132-148) mmol/L Potassium (3.6-5.2) mmol/L Chloride (98-107) mmol/L Carbon Dioxide (22-30) mmol/L Anion Gap (10-20) BUN (9-20) mg/dL Creatinine (0.8-1.5) mg/dL Est GFR ( Amer) Est GFR (Non-Af Amer) POC Glucose (mg/dL) 71 (65-110) mg/dL Random Glucose (75-110) mg/dL Calcium (8.6-10.4) mg/dl Phosphorus (2.5-4.5) mg/dL Magnesium (1.6-2.3) mg/dL Total Bilirubin (0.2-1.3) mg/dL AST (17-59) U/L ALT (21-72) U/L Alkaline Phosphatase (38-126) U/L Total Protein (6.3-8.3) g/dL Albumin (3.5-5.0) g/dL Globulin (2.2-3.9) gm/dL Albumin/Globulin Ratio (1.0-2.1) Amylase (30-110) U/L Arterial Blood Potassium (3.6-5.2) mmol/L Urine Color (YELLOW) Urine Clarity (Clear) Urine pH (5.0-8.0) Ur Specific [place] (1.003-1.030) Urine Protein (NEGATIVE) mg/dL Urine Glucose (UA) (Normal) mg/dL Urine Ketones (NEGATIVE) mg/dL Urine Blood (NEGATIVE) Urine Nitrate (NEGATIVE) Urine Bilirubin (NEGATIVE) Urine Urobilinogen (0.2-1.0) mg/dL Ur Leukocyte Esterase (Negative) [place]/uL Urine WBC (Auto) (0-5) /hpf Urine RBC (Auto) (0-3) /hpf Salicylates mg/dL 1 Urine Opiates Screen (NEGATIVE) Urine Methadone Screen (NEGATIVE) Acetaminophen (10.0-30.0) ug/mL Ur Barbiturates Screen (NEGATIVE) Ur Phencyclidine Scrn (NEGATIVE) Ur Amphetamines Screen (NEGATIVE) U Benzodiazepines Scrn (NEGATIVE) U Oth Cocaine Metabols (NEGATIVE) U Cannabinoids Screen (NEGATIVE) Alcohol, Quantitative (0-10) mg/dl 01/10/18 01/10/18 01/10/18 Range/Units 11:28 07:38 05:23 WBC (4.8-10.8) K/uL RBC (4.40-5.90) Mil/uL Hgb (12.0-18.0) g/dL Hct (35.0-51.0) % MCV (80.0-94.0) fL MCH (27.0-31.0) pg MCHC (33.0-37.0) g/dL RDW (11.5-14.5) % Plt Count (130-400) K/uL MPV (7.2-11.7) fL Neut % (Auto) (50.0-75.0) % Lymph % (Auto) (20.0-40.0) % [place] % (Auto) (0.0-10.0) % Eos % (Auto) (0.0-4.0) % Baso % (Auto) (0.0-2.0) % Neut # (Auto) (1.8-7.0) K/uL Lymph # (Auto) (1.0-4.3) K/uL [place] # (Auto) (0.0-0.8) K/uL Eos # (Auto) (0.0-0.7) K/uL Baso # (Auto) (0.0-0.2) K/uL PT (9.7-12.2) SECONDS INR APTT (21-34) SECONDS Puncture Site pCO2 (35-45) mm/Hg pO2 (80-100) mm/Hg HCO3 (21-28) mmol/L ABG pH (7.35-7.45) ABG Total CO2 (22-28) mmol/L ABG O2 Saturation (95-98) % ABG Base Excess (-2.0-3.0) mmol/L Kush Test ABG Potassium (3.6-5.2) mmol/L A-a O2 Difference mm/Hg Respiratory Index Glucose (75-110) mg/dl Lactate (0.7-2.1) mmol/L Vent Mode Mechanical Rate FiO2 % Tidal Volume PEEP Inspiratory BiPAP Expiratory BiPAP Sodium 147 (132-148) mmol/L Potassium 3.4 L (3.6-5.2) mmol/L Chloride 108 H (98-107) mmol/L Carbon Dioxide 28 (22-30) mmol/L Anion Gap 14 (10-20) BUN 6 L (9-20) mg/dL Creatinine 0.6 L (0.8-1.5) mg/dL Est GFR ( Amer) > 60 Est GFR (Non-Af Amer) > 60 POC Glucose (mg/dL) 118 H 118 H (65-110) mg/dL Random Glucose 69 L (75-110) mg/dL Calcium 8.8 (8.6-10.4) mg/dl Phosphorus 3.0 (2.5-4.5) mg/dL Magnesium 1.8 (1.6-2.3) mg/dL Total Bilirubin 0.8 (0.2-1.3) mg/dL AST 47 (17-59) U/L ALT 43 (21-72) U/L Alkaline Phosphatase 48 (38-126) U/L Total Protein 5.8 L (6.3-8.3) g/dL Albumin 3.1 L (3.5-5.0) g/dL Globulin 2.7 (2.2-3.9) gm/dL Albumin/Globulin Ratio 1.1 (1.0-2.1) Amylase 40 (30-110) U/L Arterial Blood Potassium (3.6-5.2) mmol/L Urine Color (YELLOW) Urine Clarity (Clear) Urine pH (5.0-8.0) Ur Specific [place] (1.003-1.030) Urine Protein (NEGATIVE) mg/dL Urine Glucose (UA) (Normal) mg/dL Urine Ketones (NEGATIVE) mg/dL Urine Blood (NEGATIVE) Urine Nitrate (NEGATIVE) Urine Bilirubin (NEGATIVE) Urine Urobilinogen (0.2-1.0) mg/dL Ur Leukocyte Esterase (Negative) [place]/uL Urine WBC (Auto) (0-5) /hpf Urine RBC (Auto) (0-3) /hpf Salicylates mg/dL 1 Urine Opiates Screen (NEGATIVE) Urine Methadone Screen (NEGATIVE) Acetaminophen (10.0-30.0) ug/mL Ur Barbiturates Screen (NEGATIVE) Ur Phencyclidine Scrn (NEGATIVE) Ur Amphetamines Screen (NEGATIVE) U Benzodiazepines Scrn (NEGATIVE) U Oth Cocaine Metabols (NEGATIVE) U Cannabinoids Screen (NEGATIVE) Alcohol, Quantitative (0-10) mg/dl 01/10/18 01/10/18 01/10/18 Range/Units 05:18 03:59 03:59 WBC 6.1 (4.8-10.8) K/uL RBC 3.55 L (4.40-5.90) Mil/uL Hgb 11.7 L (12.0-18.0) g/dL Hct 33.9 L (35.0-51.0) % MCV 95.3 H (80.0-94.0) fL MCH 32.9 H (27.0-31.0) pg MCHC 34.5 (33.0-37.0) g/dL RDW 15.3 H (11.5-14.5) % Plt Count 245 (130-400) K/uL MPV 7.1 L (7.2-11.7) fL Neut % (Auto) 41.2 L (50.0-75.0) % Lymph % (Auto) 39.8 (20.0-40.0) % [place] % (Auto) 14.7 H (0.0-10.0) % Eos % (Auto) 3.7 (0.0-4.0) % Baso % (Auto) 0.6 (0.0-2.0) % Neut # (Auto) 2.5 (1.8-7.0) K/uL Lymph # (Auto) 2.4 (1.0-4.3) K/uL [place] # (Auto) 0.9 H (0.0-0.8) K/uL Eos # (Auto) 0.2 (0.0-0.7) K/uL Baso # (Auto) 0.0 (0.0-0.2) K/uL PT (9.7-12.2) SECONDS INR APTT (21-34) SECONDS Puncture Site Lrad pCO2 45 (35-45) mm/Hg pO2 149 H (80-100) mm/Hg HCO3 25.2 (21-28) mmol/L ABG pH 7.37 (7.35-7.45) ABG Total CO2 27.4 (22-28) mmol/L ABG O2 Saturation 99.9 H (95-98) % ABG Base Excess 0.3 (-2.0-3.0) mmol/L Kush Test Pos ABG Potassium 3.2 L (3.6-5.2) mmol/L A-a O2 Difference 80.0 mm/Hg Respiratory Index 0.5 Glucose 110 (75-110) mg/dl Lactate 2.6 H (0.7-2.1) mmol/L Vent Mode Prvc Mechanical Rate 20 FiO2 40.0 % Tidal Volume 500 PEEP 5 Inspiratory BiPAP Expiratory BiPAP Sodium 145.0 146 (132-148) mmol/L Potassium 3.5 L (3.6-5.2) mmol/L Chloride 110.0 H 108 H (98-107) mmol/L Carbon Dioxide 25 (22-30) mmol/L Anion Gap 16 (10-20) BUN 7 L (9-20) mg/dL Creatinine 0.5 L (0.8-1.5) mg/dL Est GFR ( Amer) > 60 Est GFR (Non-Af Amer) > 60 POC Glucose (mg/dL) (65-110) mg/dL Random Glucose 166 H (75-110) mg/dL Calcium 6.9 L (8.6-10.4) mg/dl Phosphorus (2.5-4.5) mg/dL Magnesium 1.9 (1.6-2.3) mg/dL Total Bilirubin 0.3 (0.2-1.3) mg/dL AST 46 (17-59) U/L ALT 37 (21-72) U/L Alkaline Phosphatase 48 (38-126) U/L Total Protein 5.3 L (6.3-8.3) g/dL Albumin 3.0 L D (3.5-5.0) g/dL Globulin 2.3 (2.2-3.9) gm/dL Albumin/Globulin Ratio 1.3 (1.0-2.1) Amylase (30-110) U/L Arterial Blood Potassium 3.2 L (3.6-5.2) mmol/L Urine Color (YELLOW) Urine Clarity (Clear) Urine pH (5.0-8.0) Ur Specific [place] (1.003-1.030) Urine Protein (NEGATIVE) mg/dL Urine Glucose (UA) (Normal) mg/dL Urine Ketones (NEGATIVE) mg/dL Urine Blood (NEGATIVE) Urine Nitrate (NEGATIVE) Urine Bilirubin (NEGATIVE) Urine Urobilinogen (0.2-1.0) mg/dL Ur Leukocyte Esterase (Negative) Niranjan/uL Urine WBC (Auto) (0-5) /hpf Urine RBC (Auto) (0-3) /hpf Salicylates mg/dL 1 Urine Opiates Screen (NEGATIVE) Urine Methadone Screen (NEGATIVE) Acetaminophen (10.0-30.0) ug/mL Ur Barbiturates Screen (NEGATIVE) Ur Phencyclidine Scrn (NEGATIVE) Ur Amphetamines Screen (NEGATIVE) U Benzodiazepines Scrn (NEGATIVE) U Oth Cocaine Metabols (NEGATIVE) U Cannabinoids Screen (NEGATIVE) Alcohol, Quantitative (0-10) mg/dl 01/10/18 01/10/18 01/10/18 Range/Units 03:31 02:36 02:02 WBC (4.8-10.8) K/uL RBC (4.40-5.90) Mil/uL Hgb (12.0-18.0) g/dL Hct (35.0-51.0) % MCV (80.0-94.0) fL MCH (27.0-31.0) pg MCHC (33.0-37.0) g/dL RDW (11.5-14.5) % Plt Count (130-400) K/uL MPV (7.2-11.7) fL Neut % (Auto) (50.0-75.0) % Lymph % (Auto) (20.0-40.0) % [place] % (Auto) (0.0-10.0) % Eos % (Auto) (0.0-4.0) % Baso % (Auto) (0.0-2.0) % Neut # (Auto) (1.8-7.0) K/uL Lymph # (Auto) (1.0-4.3) K/uL [place] # (Auto) (0.0-0.8) K/uL Eos # (Auto) (0.0-0.7) K/uL Baso # (Auto) (0.0-0.2) K/uL PT (9.7-12.2) SECONDS INR APTT (21-34) SECONDS Puncture Site R brac pCO2 52 H (35-45) mm/Hg pO2 160 H (80-100) mm/Hg HCO3 27.8 (21-28) mmol/L ABG pH 7.37 (7.35-7.45) ABG Total CO2 31.7 H (22-28) mmol/L ABG O2 Saturation 99.7 H (95-98) % ABG Base Excess 3.6 H (-2.0-3.0) mmol/L Kush Test Na ABG Potassium 3.2 L (3.6-5.2) mmol/L A-a O2 Difference -11.0 mm/Hg Respiratory Index -0.1 Glucose 83 (75-110) mg/dl Lactate 1.7 (0.7-2.1) mmol/L Vent Mode Bipap Mechanical Rate 16 FiO2 30.0 % Tidal Volume PEEP Inspiratory BiPAP 12 Expiratory BiPAP 6 Sodium 146.0 (132-148) mmol/L Potassium (3.6-5.2) mmol/L Chloride 112.0 H (98-107) mmol/L Carbon Dioxide (22-30) mmol/L Anion Gap (10-20) BUN (9-20) mg/dL Creatinine (0.8-1.5) mg/dL Est GFR ( Amer) Est GFR (Non-Af Amer) POC Glucose (mg/dL) 81 70 (65-110) mg/dL Random Glucose (75-110) mg/dL Calcium (8.6-10.4) mg/dl Phosphorus (2.5-4.5) mg/dL Magnesium (1.6-2.3) mg/dL Total Bilirubin (0.2-1.3) mg/dL AST (17-59) U/L ALT (21-72) U/L Alkaline Phosphatase (38-126) U/L Total Protein (6.3-8.3) g/dL Albumin (3.5-5.0) g/dL Globulin (2.2-3.9) gm/dL Albumin/Globulin Ratio (1.0-2.1) Amylase (30-110) U/L Arterial Blood Potassium 3.2 L (3.6-5.2) mmol/L Urine Color (YELLOW) Urine Clarity (Clear) Urine pH (5.0-8.0) Ur Specific [place] (1.003-1.030) Urine Protein (NEGATIVE) mg/dL Urine Glucose (UA) (Normal) mg/dL Urine Ketones (NEGATIVE) mg/dL Urine Blood (NEGATIVE) Urine Nitrate (NEGATIVE) Urine Bilirubin (NEGATIVE) Urine Urobilinogen (0.2-1.0) mg/dL Ur Leukocyte Esterase (Negative) Niranjan/uL Urine WBC (Auto) (0-5) /hpf Urine RBC (Auto) (0-3) /hpf Salicylates mg/dL 1 Urine Opiates Screen (NEGATIVE) Urine Methadone Screen (NEGATIVE) Acetaminophen (10.0-30.0) ug/mL Ur Barbiturates Screen (NEGATIVE) Ur Phencyclidine Scrn (NEGATIVE) Ur Amphetamines Screen (NEGATIVE) U Benzodiazepines Scrn (NEGATIVE) U Oth Cocaine Metabols (NEGATIVE) U Cannabinoids Screen (NEGATIVE) Alcohol, Quantitative (0-10) mg/dl 01/09/18 01/09/18 01/09/18 Range/Units 23:42 23:42 23:30 WBC (4.8-10.8) K/uL RBC (4.40-5.90) Mil/uL Hgb (12.0-18.0) g/dL Hct (35.0-51.0) % MCV (80.0-94.0) fL MCH (27.0-31.0) pg MCHC (33.0-37.0) g/dL RDW (11.5-14.5) % Plt Count (130-400) K/uL MPV (7.2-11.7) fL Neut % (Auto) (50.0-75.0) % Lymph % (Auto) (20.0-40.0) % [place] % (Auto) (0.0-10.0) % Eos % (Auto) (0.0-4.0) % Baso % (Auto) (0.0-2.0) % Neut # (Auto) (1.8-7.0) K/uL Lymph # (Auto) (1.0-4.3) K/uL [place] # (Auto) (0.0-0.8) K/uL Eos # (Auto) (0.0-0.7) K/uL Baso # (Auto) (0.0-0.2) K/uL PT (9.7-12.2) SECONDS INR APTT (21-34) SECONDS Puncture Site pCO2 (35-45) mm/Hg pO2 (80-100) mm/Hg HCO3 (21-28) mmol/L ABG pH (7.35-7.45) ABG Total CO2 (22-28) mmol/L ABG O2 Saturation (95-98) % ABG Base Excess (-2.0-3.0) mmol/L Kush Test ABG Potassium (3.6-5.2) mmol/L A-a O2 Difference mm/Hg Respiratory Index Glucose (75-110) mg/dl Lactate (0.7-2.1) mmol/L Vent Mode Mechanical Rate FiO2 % Tidal Volume PEEP Inspiratory BiPAP Expiratory BiPAP Sodium (132-148) mmol/L Potassium (3.6-5.2) mmol/L Chloride (98-107) mmol/L Carbon Dioxide (22-30) mmol/L Anion Gap (10-20) BUN (9-20) mg/dL Creatinine (0.8-1.5) mg/dL Est GFR ( Amer) Est GFR (Non-Af Amer) POC Glucose (mg/dL) 107 (65-110) mg/dL Random Glucose (75-110) mg/dL Calcium (8.6-10.4) mg/dl Phosphorus (2.5-4.5) mg/dL Magnesium (1.6-2.3) mg/dL Total Bilirubin (0.2-1.3) mg/dL AST (17-59) U/L ALT (21-72) U/L Alkaline Phosphatase (38-126) U/L Total Protein (6.3-8.3) g/dL Albumin (3.5-5.0) g/dL Globulin (2.2-3.9) gm/dL Albumin/Globulin Ratio (1.0-2.1) Amylase (30-110) U/L Arterial Blood Potassium (3.6-5.2) mmol/L Urine Color Yellow (YELLOW) Urine Clarity Clear (Clear) Urine pH 5.0 (5.0-8.0) Ur Specific [place] 1.013 (1.003-1.030) Urine Protein Negative (NEGATIVE) mg/dL Urine Glucose (UA) Normal (Normal) mg/dL Urine Ketones Negative (NEGATIVE) mg/dL Urine Blood Negative (NEGATIVE) Urine Nitrate Negative (NEGATIVE) Urine Bilirubin Negative (NEGATIVE) Urine Urobilinogen Normal (0.2-1.0) mg/dL Ur Leukocyte Esterase Neg (Negative) Niranjan/uL Urine WBC (Auto) 1 (0-5) /hpf Urine RBC (Auto) < 1 (0-3) /hpf Salicylates mg/dL 1 Urine Opiates Screen Negative (NEGATIVE) Urine Methadone Screen Negative (NEGATIVE) Acetaminophen (10.0-30.0) ug/mL Ur Barbiturates Screen Negative (NEGATIVE) Ur Phencyclidine Scrn Negative (NEGATIVE) Ur Amphetamines Screen Negative (NEGATIVE) U Benzodiazepines Scrn Positive (NEGATIVE) U Oth Cocaine Metabols Negative (NEGATIVE) U Cannabinoids Screen Positive H (NEGATIVE) Alcohol, Quantitative (0-10) mg/dl 01/09/18 01/09/18 01/09/18 Range/Units 23:28 23:17 23:17 WBC (4.8-10.8) K/uL RBC (4.40-5.90) Mil/uL Hgb (12.0-18.0) g/dL Hct (35.0-51.0) % MCV (80.0-94.0) fL MCH (27.0-31.0) pg MCHC (33.0-37.0) g/dL RDW (11.5-14.5) % Plt Count (130-400) K/uL MPV (7.2-11.7) fL Neut % (Auto) (50.0-75.0) % Lymph % (Auto) (20.0-40.0) % [place] % (Auto) (0.0-10.0) % Eos % (Auto) (0.0-4.0) % Baso % (Auto) (0.0-2.0) % Neut # (Auto) (1.8-7.0) K/uL Lymph # (Auto) (1.0-4.3) K/uL [place] # (Auto) (0.0-0.8) K/uL Eos # (Auto) (0.0-0.7) K/uL Baso # (Auto) (0.0-0.2) K/uL PT (9.7-12.2) SECONDS INR APTT (21-34) SECONDS Puncture Site pCO2 (35-45) mm/Hg pO2 (80-100) mm/Hg HCO3 (21-28) mmol/L ABG pH (7.35-7.45) ABG Total CO2 (22-28) mmol/L ABG O2 Saturation (95-98) % ABG Base Excess (-2.0-3.0) mmol/L Kush Test ABG Potassium (3.6-5.2) mmol/L A-a O2 Difference mm/Hg Respiratory Index Glucose (75-110) mg/dl Lactate (0.7-2.1) mmol/L Vent Mode Mechanical Rate FiO2 % Tidal Volume PEEP Inspiratory BiPAP Expiratory BiPAP Sodium 149 H (132-148) mmol/L Potassium 3.4 L (3.6-5.2) mmol/L Chloride 106 (98-107) mmol/L Carbon Dioxide 27 (22-30) mmol/L Anion Gap 20 (10-20) BUN 8 L (9-20) mg/dL Creatinine 0.7 L (0.8-1.5) mg/dL Est GFR ( Amer) > 60 Est GFR (Non-Af Amer) > 60 POC Glucose (mg/dL) (65-110) mg/dL Random Glucose 119 H (75-110) mg/dL Calcium 8.6 (8.6-10.4) mg/dl Phosphorus (2.5-4.5) mg/dL Magnesium 2.2 (1.6-2.3) mg/dL Total Bilirubin 0.3 (0.2-1.3) mg/dL AST 69 H D (17-59) U/L ALT 45 (21-72) U/L Alkaline Phosphatase 56 (38-126) U/L Total Protein 7.1 (6.3-8.3) g/dL Albumin 4.1 (3.5-5.0) g/dL Globulin 3.0 (2.2-3.9) gm/dL Albumin/Globulin Ratio 1.3 (1.0-2.1) Amylase (30-110) U/L Arterial Blood Potassium (3.6-5.2) mmol/L Urine Color (YELLOW) Urine Clarity (Clear) Urine pH (5.0-8.0) Ur Specific [place] (1.003-1.030) Urine Protein (NEGATIVE) mg/dL Urine Glucose (UA) (Normal) mg/dL Urine Ketones (NEGATIVE) mg/dL Urine Blood (NEGATIVE) Urine Nitrate (NEGATIVE) Urine Bilirubin (NEGATIVE) Urine Urobilinogen (0.2-1.0) mg/dL Ur Leukocyte Esterase (Negative) Niranjan/uL Urine WBC (Auto) (0-5) /hpf Urine RBC (Auto) (0-3) /hpf Salicylates < 1.0 mg/dL 1 Urine Opiates Screen (NEGATIVE) Urine Methadone Screen (NEGATIVE) Acetaminophen < 10.0 L (10.0-30.0) ug/mL Ur Barbiturates Screen (NEGATIVE) Ur Phencyclidine Scrn (NEGATIVE) Ur Amphetamines Screen (NEGATIVE) U Benzodiazepines Scrn (NEGATIVE) U Oth Cocaine Metabols (NEGATIVE) U Cannabinoids Screen (NEGATIVE) Alcohol, Quantitative 174 H (0-10) mg/dl 01/09/18 Range/Units 23:17 WBC 6.6 (4.8-10.8) K/uL RBC 3.98 L (4.40-5.90) Mil/uL Hgb 13.2 D (12.0-18.0) g/dL Hct 37.7 (35.0-51.0) % MCV 94.9 H (80.0-94.0) fL MCH 33.2 H (27.0-31.0) pg MCHC 35.0 (33.0-37.0) g/dL RDW 15.4 H (11.5-14.5) % Plt Count 279 (130-400) K/uL MPV 7.2 (7.2-11.7) fL Neut % (Auto) 53.0 (50.0-75.0) % Lymph % (Auto) 30.3 (20.0-40.0) % [place] % (Auto) 13.8 H (0.0-10.0) % Eos % (Auto) 2.2 (0.0-4.0) % Baso % (Auto) 0.7 (0.0-2.0) % Neut # (Auto) 3.5 (1.8-7.0) K/uL Lymph # (Auto) 2.0 (1.0-4.3) K/uL [place] # (Auto) 0.9 H (0.0-0.8) K/uL Eos # (Auto) 0.1 (0.0-0.7) K/uL Baso # (Auto) 0.0 (0.0-0.2) K/uL PT (9.7-12.2) SECONDS INR APTT (21-34) SECONDS Puncture Site pCO2 (35-45) mm/Hg pO2 (80-100) mm/Hg HCO3 (21-28) mmol/L ABG pH (7.35-7.45) ABG Total CO2 (22-28) mmol/L ABG O2 Saturation (95-98) % ABG Base Excess (-2.0-3.0) mmol/L Kush Test ABG Potassium (3.6-5.2) mmol/L A-a O2 Difference mm/Hg Respiratory Index Glucose (75-110) mg/dl Lactate (0.7-2.1) mmol/L Vent Mode Mechanical Rate FiO2 % Tidal Volume PEEP Inspiratory BiPAP Expiratory BiPAP Sodium (132-148) mmol/L Potassium (3.6-5.2) mmol/L Chloride (98-107) mmol/L Carbon Dioxide (22-30) mmol/L Anion Gap (10-20) BUN (9-20) mg/dL Creatinine (0.8-1.5) mg/dL Est GFR ( Amer) Est GFR (Non-Af Amer) POC Glucose (mg/dL) (65-110) mg/dL Random Glucose (75-110) mg/dL Calcium (8.6-10.4) mg/dl Phosphorus (2.5-4.5) mg/dL Magnesium (1.6-2.3) mg/dL Total Bilirubin (0.2-1.3) mg/dL AST (17-59) U/L ALT (21-72) U/L Alkaline Phosphatase (38-126) U/L Total Protein (6.3-8.3) g/dL Albumin (3.5-5.0) g/dL Globulin (2.2-3.9) gm/dL Albumin/Globulin Ratio (1.0-2.1) Amylase (30-110) U/L Arterial Blood Potassium (3.6-5.2) mmol/L Urine Color (YELLOW) Urine Clarity (Clear) Urine pH (5.0-8.0) Ur Specific [place] (1.003-1.030) Urine Protein (NEGATIVE) mg/dL Urine Glucose (UA) (Normal) mg/dL Urine Ketones (NEGATIVE) mg/dL Urine Blood (NEGATIVE) Urine Nitrate (NEGATIVE) Urine Bilirubin (NEGATIVE) Urine Urobilinogen (0.2-1.0) mg/dL Ur Leukocyte Esterase (Negative) Niranjan/uL Urine WBC (Auto) (0-5) /hpf Urine RBC (Auto) (0-3) /hpf Salicylates mg/dL 1 Urine Opiates Screen (NEGATIVE) Urine Methadone Screen (NEGATIVE) Acetaminophen (10.0-30.0) ug/mL Ur Barbiturates Screen (NEGATIVE) Ur Phencyclidine Scrn (NEGATIVE) Ur Amphetamines Screen (NEGATIVE) U Benzodiazepines Scrn (NEGATIVE) U Oth Cocaine Metabols (NEGATIVE) U Cannabinoids Screen (NEGATIVE) Alcohol, Quantitative (0-10) mg/dl Laboratory Results - last 24 hr 01/09/18 01/09/18 01/09/18 23:17 23:17 23:17 WBC 6.6 RBC 3.98 L Hgb 13.2 D Hct 37.7 MCV 94.9 H MCH 33.2 H MCHC 35.0 RDW 15.4 H Plt Count 279 MPV 7.2 Neut % (Auto) 53.0 Lymph % (Auto) 30.3 [place] % (Auto) 13.8 H Eos % (Auto) 2.2 Baso % (Auto) 0.7 Neut # (Auto) 3.5 Lymph # (Auto) 2.0 [place] # (Auto) 0.9 H Eos # (Auto) 0.1 Baso # (Auto) 0.0 PT INR APTT Puncture Site pCO2 pO2 HCO3 ABG pH ABG Total CO2 ABG O2 Saturation ABG Base Excess Kush Test ABG Potassium A-a O2 Difference Respiratory Index Glucose Lactate Vent Mode Mechanical Rate FiO2 Tidal Volume PEEP Inspiratory BiPAP Expiratory BiPAP Sodium 149 H Potassium 3.4 L Chloride 106 Carbon Dioxide 27 Anion Gap 20 BUN 8 L Creatinine 0.7 L Est GFR ( Amer) > 60 Est GFR (Non-Af Amer) > 60 POC Glucose (mg/dL) Random Glucose 119 H Calcium 8.6 Phosphorus Magnesium Total Bilirubin 0.3 AST 69 H D ALT 45 Alkaline Phosphatase 56 Total Protein 7.1 Albumin 4.1 Globulin 3.0 Albumin/Globulin Ratio 1.3 Amylase Arterial Blood Potassium Urine Color Urine Clarity Urine pH Ur Specific [place] Urine Protein Urine Glucose (UA) Urine Ketones Urine Blood Urine Nitrate Urine Bilirubin Urine Urobilinogen Ur Leukocyte Esterase Urine WBC (Auto) Urine RBC (Auto) Salicylates < 1.0 Urine Opiates Screen Urine Methadone Screen Acetaminophen < 10.0 L Ur Barbiturates Screen Ur Phencyclidine Scrn Ur Amphetamines Screen U Benzodiazepines Scrn U Oth Cocaine Metabols U Cannabinoids Screen Alcohol, Quantitative 174 H 01/09/18 01/09/18 01/09/18 23:28 23:30 23:42 WBC RBC Hgb Hct MCV MCH MCHC RDW Plt Count MPV Neut % (Auto) Lymph % (Auto) [place] % (Auto) Eos % (Auto) Baso % (Auto) Neut # (Auto) Lymph # (Auto) [place] # (Auto) Eos # (Auto) Baso # (Auto) PT INR APTT Puncture Site pCO2 pO2 HCO3 ABG pH ABG Total CO2 ABG O2 Saturation ABG Base Excess Kush Test ABG Potassium A-a O2 Difference Respiratory Index Glucose Lactate Vent Mode Mechanical Rate FiO2 Tidal Volume PEEP Inspiratory BiPAP Expiratory BiPAP Sodium Potassium Chloride Carbon Dioxide Anion Gap BUN Creatinine Est GFR ( Amer) Est GFR (Non-Af Amer) POC Glucose (mg/dL) 107 Random Glucose Calcium Phosphorus Magnesium 2.2 Total Bilirubin AST ALT Alkaline Phosphatase Total Protein Albumin Globulin Albumin/Globulin Ratio Amylase Arterial Blood Potassium Urine Color Yellow Urine Clarity Clear Urine pH 5.0 Ur Specific [place] 1.013 Urine Protein Negative Urine Glucose (UA) Normal Urine Ketones Negative Urine Blood Negative Urine Nitrate Negative Urine Bilirubin Negative Urine Urobilinogen Normal Ur Leukocyte Esterase Neg Urine WBC (Auto) 1 Urine RBC (Auto) < 1 Salicylates Urine Opiates Screen Urine Methadone Screen Acetaminophen Ur Barbiturates Screen Ur Phencyclidine Scrn Ur Amphetamines Screen U Benzodiazepines Scrn U Oth Cocaine Metabols U Cannabinoids Screen Alcohol, Quantitative 01/09/18 01/10/18 01/10/18 23:42 02:02 02:36 WBC RBC Hgb Hct MCV MCH MCHC RDW Plt Count MPV Neut % (Auto) Lymph % (Auto) [place] % (Auto) Eos % (Auto) Baso % (Auto) Neut # (Auto) Lymph # (Auto) [place] # (Auto) Eos # (Auto) Baso # (Auto) PT INR APTT Puncture Site R brac pCO2 52 H pO2 160 H HCO3 27.8 ABG pH 7.37 ABG Total CO2 31.7 H ABG O2 Saturation 99.7 H ABG Base Excess 3.6 H Kush Test Na ABG Potassium 3.2 L A-a O2 Difference -11.0 Respiratory Index -0.1 Glucose 83 Lactate 1.7 Vent Mode Bipap Mechanical Rate 16 FiO2 30.0 Tidal Volume PEEP Inspiratory BiPAP 12 Expiratory BiPAP 6 Sodium 146.0 Potassium Chloride 112.0 H Carbon Dioxide Anion Gap BUN Creatinine Est GFR ( Amer) Est GFR (Non-Af Amer) POC Glucose (mg/dL) 70 Random Glucose Calcium Phosphorus Magnesium Total Bilirubin AST ALT Alkaline Phosphatase Total Protein Albumin Globulin Albumin/Globulin Ratio Amylase Arterial Blood Potassium 3.2 L Urine Color Urine Clarity Urine pH Ur Specific [place] Urine Protein Urine Glucose (UA) Urine Ketones Urine Blood Urine Nitrate Urine Bilirubin Urine Urobilinogen Ur Leukocyte Esterase Urine WBC (Auto) Urine RBC (Auto) Salicylates Urine Opiates Screen Negative Urine Methadone Screen Negative Acetaminophen Ur Barbiturates Screen Negative Ur Phencyclidine Scrn Negative Ur Amphetamines Screen Negative U Benzodiazepines Scrn Positive U Oth Cocaine Metabols Negative U Cannabinoids Screen Positive H Alcohol, Quantitative 01/10/18 01/10/18 01/10/18 03:31 03:59 03:59 WBC 6.1 RBC 3.55 L Hgb 11.7 L Hct 33.9 L MCV 95.3 H MCH 32.9 H MCHC 34.5 RDW 15.3 H Plt Count 245 MPV 7.1 L Neut % (Auto) 41.2 L Lymph % (Auto) 39.8 [place] % (Auto) 14.7 H Eos % (Auto) 3.7 Baso % (Auto) 0.6 Neut # (Auto) 2.5 Lymph # (Auto) 2.4 [place] # (Auto) 0.9 H Eos # (Auto) 0.2 Baso # (Auto) 0.0 PT INR APTT Puncture Site pCO2 pO2 HCO3 ABG pH ABG Total CO2 ABG O2 Saturation ABG Base Excess Kush Test ABG Potassium A-a O2 Difference Respiratory Index Glucose Lactate Vent Mode Mechanical Rate FiO2 Tidal Volume PEEP Inspiratory BiPAP Expiratory BiPAP Sodium 146 Potassium 3.5 L Chloride 108 H Carbon Dioxide 25 Anion Gap 16 BUN 7 L Creatinine 0.5 L Est GFR ( Amer) > 60 Est GFR (Non-Af Amer) > 60 POC Glucose (mg/dL) 81 Random Glucose 166 H Calcium 6.9 L Phosphorus Magnesium 1.9 Total Bilirubin 0.3 AST 46 ALT 37 Alkaline Phosphatase 48 Total Protein 5.3 L Albumin 3.0 L D Globulin 2.3 Albumin/Globulin Ratio 1.3 Amylase Arterial Blood Potassium Urine Color Urine Clarity Urine pH Ur Specific [place] Urine Protein Urine Glucose (UA) Urine Ketones Urine Blood Urine Nitrate Urine Bilirubin Urine Urobilinogen Ur Leukocyte Esterase Urine WBC (Auto) Urine RBC (Auto) Salicylates Urine Opiates Screen Urine Methadone Screen Acetaminophen Ur Barbiturates Screen Ur Phencyclidine Scrn Ur Amphetamines Screen U Benzodiazepines Scrn U Oth Cocaine Metabols U Cannabinoids Screen Alcohol, Quantitative 01/10/1818 01/10/18 05:18 05:23 07:38 WBC RBC Hgb Hct MCV MCH MCHC RDW Plt Count MPV Neut % (Auto) Lymph % (Auto) [place] % (Auto) Eos % (Auto) Baso % (Auto) Neut # (Auto) Lymph # (Auto) [place] # (Auto) Eos # (Auto) Baso # (Auto) PT INR APTT Puncture Site [place] pCO2 45 pO2 149 H HCO3 25.2 ABG pH 7.37 ABG Total CO2 27.4 ABG O2 Saturation 99.9 H ABG Base Excess 0.3 Kush Test Pos ABG Potassium 3.2 L A-a O2 Difference 80.0 Respiratory Index 0.5 Glucose 110 Lactate 2.6 H Vent Mode Prvc Mechanical Rate 20 FiO2 40.0 Tidal Volume 500 PEEP 5 Inspiratory BiPAP Expiratory BiPAP Sodium 145.0 Potassium Chloride 110.0 H Carbon Dioxide Anion Gap BUN Creatinine Est GFR ( Amer) Est GFR (Non-Af Amer) POC Glucose (mg/dL) 118 H 118 H Random Glucose Calcium Phosphorus Magnesium Total Bilirubin AST ALT Alkaline Phosphatase Total Protein Albumin Globulin Albumin/Globulin Ratio Amylase Arterial Blood Potassium 3.2 L Urine Color Urine Clarity Urine pH Ur Specific [place] Urine Protein Urine Glucose (UA) Urine Ketones Urine Blood Urine Nitrate Urine Bilirubin Urine Urobilinogen Ur Leukocyte Esterase Urine WBC (Auto) Urine RBC (Auto) Salicylates Urine Opiates Screen Urine Methadone Screen Acetaminophen Ur Barbiturates Screen Ur Phencyclidine Scrn Ur Amphetamines Screen U Benzodiazepines Scrn U Oth Cocaine Metabols U Cannabinoids Screen Alcohol, Quantitative 01/10/18 01/10/18 01/10/18 11:28 11:28 11:28 WBC 7.4 RBC 3.47 L Hgb 11.6 L Hct 33.2 L MCV 95.4 H MCH 33.5 H MCHC 35.1 RDW 15.5 H Plt Count 272 MPV 7.3 Neut % (Auto) 64.4 Lymph % (Auto) 22.5 [place] % (Auto) 9.8 Eos % (Auto) 2.3 Baso % (Auto) 1.0 Neut # (Auto) 4.8 Lymph # (Auto) 1.7 [place] # (Auto) 0.7 Eos # (Auto) 0.2 Baso # (Auto) 0.1 PT 13.6 H INR 1.2 APTT 34 Puncture Site pCO2 pO2 HCO3 ABG pH ABG Total CO2 ABG O2 Saturation ABG Base Excess Kush Test ABG Potassium A-a O2 Difference Respiratory Index Glucose Lactate Vent Mode Mechanical Rate FiO2 Tidal Volume PEEP Inspiratory BiPAP Expiratory BiPAP Sodium 147 Potassium 3.4 L Chloride 108 H Carbon Dioxide 28 Anion Gap 14 BUN 6 L Creatinine 0.6 L Est GFR ( Amer) > 60 Est GFR (Non-Af Amer) > 60 POC Glucose (mg/dL) Random Glucose 69 L Calcium 8.8 Phosphorus 3.0 Magnesium 1.8 Total Bilirubin 0.8 AST 47 ALT 43 Alkaline Phosphatase 48 Total Protein 5.8 L Albumin 3.1 L Globulin 2.7 Albumin/Globulin Ratio 1.1 Amylase 40 Arterial Blood Potassium Urine Color Urine Clarity Urine pH Ur Specific [place] Urine Protein Urine Glucose (UA) Urine Ketones Urine Blood Urine Nitrate Urine Bilirubin Urine Urobilinogen Ur Leukocyte Esterase Urine WBC (Auto) Urine RBC (Auto) Salicylates Urine Opiates Screen Urine Methadone Screen Acetaminophen Ur Barbiturates Screen Ur Phencyclidine Scrn Ur Amphetamines Screen U Benzodiazepines Scrn U Oth Cocaine Metabols U Cannabinoids Screen Alcohol, Quantitative 01/10/18 11:34 WBC RBC Hgb Hct MCV MCH MCHC RDW Plt Count MPV Neut % (Auto) Lymph % (Auto) [place] % (Auto) Eos % (Auto) Baso % (Auto) Neut # (Auto) Lymph # (Auto) [place] # (Auto) Eos # (Auto) Baso # (Auto) PT INR APTT Puncture Site pCO2 pO2 HCO3 ABG pH ABG Total CO2 ABG O2 Saturation ABG Base Excess Kush Test ABG Potassium A-a O2 Difference Respiratory Index Glucose Lactate Vent Mode Mechanical Rate FiO2 Tidal Volume PEEP Inspiratory BiPAP Expiratory BiPAP Sodium Potassium Chloride Carbon Dioxide Anion Gap BUN Creatinine Est GFR ( Amer) Est GFR (Non-Af Amer) POC Glucose (mg/dL) 71 Random Glucose Calcium Phosphorus Magnesium Total Bilirubin AST ALT Alkaline Phosphatase Total Protein Albumin Globulin Albumin/Globulin Ratio Amylase Arterial Blood Potassium Urine Color Urine Clarity Urine pH Ur Specific [place] Urine Protein Urine Glucose (UA) Urine Ketones Urine Blood Urine Nitrate Urine Bilirubin Urine Urobilinogen Ur Leukocyte Esterase Urine WBC (Auto) Urine RBC (Auto) Salicylates Urine Opiates Screen Urine Methadone Screen Acetaminophen Ur Barbiturates Screen Ur Phencyclidine Scrn Ur Amphetamines Screen U Benzodiazepines Scrn U Oth Cocaine Metabols U Cannabinoids Screen Alcohol, Quantitative EKG/Cardiology Studies: Cardiology / EKG Studies 01/09/18 23:05 EKG [ELECTROCARDIOGRAM] Stat Comment: Mode Of Transportation: BED Reason For Exam: cp 01/09/18 23:26 ELECTROCARDIOGRAM Stat Comment: ed 8b Mode Of Transportation: STRETCHER Reason For Exam: weakness 01/10/18 03:38 EKG [ELECTROCARDIOGRAM] Stat Comment: Mode Of Transportation: BED Reason For Exam: cp 01/10/18 03:42 EKG [ELECTROCARDIOGRAM] Stat Comment: Mode Of Transportation: Reason For Exam: drug OD 01/10/18 04:11 EKG [ELECTROCARDIOGRAM] Q6H Comment: Mode Of Transportation: Reason For Exam: qtc 01/10/18 10:11 EKG [ELECTROCARDIOGRAM] Q6H Comment: Mode Of Transportation: Reason For Exam: qtc 01/10/18 16:11 EKG [ELECTROCARDIOGRAM] Q6H Comment: Mode Of Transportation: Reason For Exam: qtc 01/10/18 22:11 EKG [ELECTROCARDIOGRAM] Q6H Comment: Mode Of Transportation: Reason For Exam: qtc Assessment/Plan - Assessment and Plan (Free Text) Plan: Patient is completely sedated. Pupils are poorly reacting. But gag reflex noted. Unresponsive at this time, will continue the supportive care. Repeat chest x-ray. Repeat CAT scan. Possible weaning once he is awake and responding in the morning
--- NOTE | 2018-01-10 12:33 | CP.PCM.PCO ---
Physician Communication Note - Physician Communication Note Physician Communication Note: Pt is intubated and sedated. Consult will be done later.
--- NOTE | 2018-01-10 12:39 | CARD ---
APPROVED REPORT EKG Measurement Heart [id number] <Conclusion> Normal sinus rhythm Incomplete right bundle branch block Borderline ECG
[2018-01-10 13:04] LABS: LIPASE 30 U/L (23-300)
--- NOTE | 2018-01-10 16:43 | CARD ---
APPROVED REPORT EKG Measurement Heart [id number] <Conclusion> Sinus tachycardia Septal infarct, age undetermined Abnormal ECG
--- NOTE | 2018-01-10 16:47 | CARD ---
APPROVED REPORT EKG Measurement Heart [id number] UT [id number] [id number] <Conclusion> Sinus tachycardia with short UT Incomplete right bundle branch block Borderline ECG
[2018-01-10] MEDS: Dexmedetomidine Hydrochloride 200 MCG in Sodium Chloride 0.9% 48 ML IV PRN ×3 (20:30→23:21)
--- NOTE | 2018-01-10 20:47 | CP.PCM.PN ---
Subjective - Date & Time of Evaluation Date of Evaluation: 01/10/18 Time of Evaluation: 14:45 - Subjective Subjective: Hospitalist Progress Note Patient was seen and examined at 2:45 PM 01/10/18 37 year old male who was admitted on 01/09/18 after suicide attempt by ingesting multiple medications: seroquel, wellbutrin, vistoril, remeron, and gabapentin. Alcohol level upon presentation was 134. Urine Drug Screen was negative for salicylates and tylenol. Poison control was notified and recommended monitoring electrolytes and ekg. He was given activated charcoal 50 gm x 1 dose. He required intubation and is therefore being managed in the ICU. Chest X Ray: NO focal consolidation/pleural effusion/pneumothorax CT Head: NO evidence of an acute intracranial hemorrhage/midline shift/mass effect ROS is not possible as patient is intubated, on vent, and propofol drip Patient was seen and examined at 10:00 AM 11/06/17 89 A HEENT: NCA, Pupils are round/equal/but sluggishly reactive to light. NO cervical /supraclavicular/submandibular lymphadenopathy, Nasal Turbinates are nonerythematous/nonedematous Cardio: NS1 and NS2, NO M/R/G Resp: CTA B/L, NO R/R/W however limited due to lack of patient participation GI: BSx4, Soft, NT, NO HSM Ext: Pulses are strong and equal, Capillary Refill is 2 seconds, NO edema Neuro: not possible at this time Assessment and Plan: 1). Suicide Attempt via ingestion of multiple medications LR at 100 ml/hr Bannana bag at 42 ml/hr QTc at 3:40 AM was 570 but at 9:30 AM it was 485 F/U Psychiatry evaluation once patient is able to participate in evaluation Status: Acute 2). Prophylaxis Duoneb Q6H PRN Heparin 5,000 Units SC Q8H Protonix 40 mg IV 1x/day Lorazepam 2 mg IV Q4H PRN Anxiety Lucio Wilson D.O. Objective - Vital Signs/Intake and Output Vital Signs (last 24 hours): Temp Pulse Resp BP Pulse Ox 98.4 F 78 20 109/75 100 01/10/18 16:00 01/10/18 17:10 01/10/18 17:10 01/10/18 16:48 01/10/18 17:10 Intake and Output: 01/10/18 01/11/18 18:59 06:59 Intake Total 354 Output Total 300 Balance 54 - Medications Medications: Current Medications Albuterol/Ipratropium (Duoneb 3 Mg/0.5 Mg (3 Ml) Ud) 3 ml INH RQ6 PRN PRN Reason: Shortness of Breath Heparin Sodium (Porcine) (Heparin) 5,000 units SC Q8 ON LICENSE OF [facility] Last Admin: 01/10/18 19:28 Dose: Not Given Folic Acid 1 mg/ Thiamine HCl 100 mg/ Multivitamins/Vitamin C 10 ml/ Dextrose 1 ,011.2 mls @ 42 mls/hr IV .Q24H ON LICENSE OF [facility] Last Admin: 01/10/18 01:11 Dose: 42 mls/hr Propofol (Diprivan) 1,000 mg in 100 mls @ 2.313 mls/hr IV .Q24H PRN; Protocol; 5 MCG/KG/MIN PRN Reason: TITRATE PER MD ORDER Last Titration: 01/10/18 13:53 Dose: 30 mcg/kg/min, 13.88 mls/hr Lactated Ringer's (Lactated Ringer's) 1,000 mls @ 100 mls/hr IV .Q10H ON LICENSE OF [facility] Last Admin: 01/10/18 19:28 Dose: Not Given Dexmedetomidine HCl 200 mcg/ (Sodium Chloride) 50 mls @ 4 mls/hr IV TITR PRN; Protocol; 0.2 MCG/KG/HR PRN Reason: Agitation Lorazepam (Ativan) 2 mg IVP Q4H PRN PRN Reason: Anxiety Pantoprazole Sodium (Protonix Inj) 40 mg IVP DAILY ON LICENSE OF [facility] Last Admin: 01/10/18 10:00 Dose: 40 mg - Labs Labs: 01/10/18 11:28 01/10/18 11:28 PT 13.6 SECONDS (9.7-12.2) H 01/10/18 11:28 INR 1.2 01/10/18 11:28 APTT 34 SECONDS (21-34) 01/10/18 11:28
[2018-01-11] MEDS: Folic Acid 1 MG, Thiamine 100 MG, Multivitamin (MVI) 10 ML in Dextrose 5% In Water 1,00... IV SCH (00:52)
[2018-01-11] MEDS: Dexmedetomidine Hydrochloride 200 MCG in Sodium Chloride 0.9% 48 ML IV PRN ×8 (01:13→16:33)
[2018-01-11] MEDS: Lactated Ringer's 1,000 ML IV SCH ×3 (02:48→21:36)
[2018-01-11] MEDS ORDERED: Midazolam 2 MG/2 ML VIAL IVP ONE (04:21)
[2018-01-11 06:05] LABS: BASO % 0.3 % (0.0-2.0); EOS % 0.2 % (0.0-4.0); HEMOGLOBIN 12.9 g/dL (12.0-18.0); LYMPH # 0.7 K/uL (1.0-4.3); LYMPH % 3.9 % (20.0-40.0); MEAN CELL VOLUME 95.1 fL (80.0-94.0); MEAN CORPUSCULAR HEMOGLOBIN 32.5 pg (27.0-31.0); MEAN CORPUSCULAR HGB CONC 34.2 g/dL (33.0-37.0); MEAN PLATELET VOLUME 7.5 fL (7.2-11.7); MONO # 0.9 K/uL (0.0-0.8); MONO % 5.6 % (0.0-10.0); NEUT # 15.1 K/uL (1.8-7.0); NRBC % 0.1 % (0.0-2.0); PLATELET COUNT 274 K/uL (130-400); RBC 3.97 Mil/uL (4.40-5.90); RED CELL DISTRIBUTION WIDTH 15.7 % (11.5-14.5); WHITE BLOOD COUNT 16.8 K/uL (4.8-10.8)
[2018-01-11 06:32] LABS: ALB/GLOB RATIO 1.3 (1.0-2.1); ALBUMIN 3.3 g/dL (3.5-5.0); ALT/SGPT 31 U/L (21-72); AST/SGOT 33 U/L (17-59); BLOOD UREA NITROGEN 4 mg/dL (9-20); CALCIUM 8.4 mg/dl (8.6-10.4); GFR AFRICAN-AMERICAN > 60; GFR NON-AFRICAN AMERICAN > 60
[2018-01-11] MEDS ORDERED: Magnesium Sulfate 1 gm in D5W 1 GM/100 ML BAG IVPB ONE (08:08)
[2018-01-11 08:20] LABS: ANISOCYTOSIS SLIGHT; BANDS 15 % (0-2); LYMPHOCYTE 4 % (20-40); MONOCYTE 9 % (0-10); NEUTROPHIL 72 % (50-75); PLATELET ESTIMATE NORMAL (NORMAL); TOTAL CELLS COUNTED 100
--- NOTE | 2018-01-11 09:07 | CP.PCM.PN ---
Subjective - Date & Time of Evaluation Date of Evaluation: 01/11/18 Time of Evaluation: 08:45 - Subjective Subjective: Hospitalist Progress Note Patient was seen and examined at 8:45 AM 01/11/18 ICU Bed #7 37 year old male who was admitted on 01/09/18 after suicide attempt by ingesting multiple medications: seroquel, wellbutrin, vistoril, remeron, and gabapentin. Alcohol level upon presentation was 134. Urine Drug Screen was negative for salicylates and tylenol. Poison control was notified and recommended monitoring electrolytes and ekg. He was given activated charcoal 50 gm x 1 dose. He required intubation and is therefore being managed in the ICU. However, during night of 01/10/18 he self extubated. Chest X Ray 01/10/18: NO focal consolidation/pleural effusion/pneumothorax CT Head 01/10/18 : NO evidence of an acute intracranial hemorrhage/midline shift/ mass effect ROS is not possible as patient is on 100% nonrebreather is not responding to questioning likely secondary to the Precedex drip. HEENT: NCA, Pupils are round/equal/but sluggishly reactive to light. NO cervical /supraclavicular/submandibular lymphadenopathy, Nasal Turbinates are nonerythematous/nonedematous Cardio: NS1 and NS2, NO M/R/G Resp: CTA B/L, NO R/R/W however limited due to lack of patient participation GI: BSx4, Soft, NT, NO HSM Ext: Pulses are strong and equal, Capillary Refill is 2 seconds, NO edema Neuro: not possible at this time Assessment and Plan: 1). Suicide Attempt via ingestion of multiple medications LR at 100 ml/hr Bannana bag at 42 ml/hr QTc at 3:40 AM was 570 but at 9:30 AM it was 485 Repeat EKG could not be performed as patient would not allow it. However, spoke with Nurse and will get performed STAT as patient is asleep F/U repeat CT Head F/U Psychiatry evaluation once patient is able to participate in evaluation Status: Acute 2). Elevated WBC with Bands No fevers and vitals are stable Could this be secondary to possible aspiration from self extubation? F/U STAT Chest X Ray Blood Cultures x 2 and Urine Culture ordered STAT Vancomycin 1 gm IV Q12H and Zosyn 3.375 gm IV Q6H ordered prophylactically and will be discontinued if workup is negative Status: Acute 2). Prophylaxis Duoneb Q6H PRN Heparin 5,000 Units SC Q8H Protonix 40 mg IV 1x/day Florastor 250 mg PO 2x/day Lorazepam 2 mg IV Q4H PRN Anxiety Lucio Wilson D.O. Objective - Vital Signs/Intake and Output Vital Signs (last 24 hours): Temp Pulse Resp BP Pulse Ox 98.4 F 69 22 126/82 97 01/10/18 16:00 01/11/18 06:20 01/11/18 06:20 01/11/18 05:32 01/11/18 06:20 Intake and Output: 01/11/18 01/11/18 06:59 18:59 Intake Total 2192 50 Output Total 1080 Balance 1112 50 - Medications Medications: Current Medications Albuterol/Ipratropium (Duoneb 3 Mg/0.5 Mg (3 Ml) Ud) 3 ml INH RQ6 PRN PRN Reason: Shortness of Breath Heparin Sodium (Porcine) (Heparin) 5,000 units SC Q8 [facility] Last Admin: 01/11/18 06:33 Dose: Not Given Folic Acid 1 mg/ Thiamine HCl 100 mg/ Multivitamins/Vitamin C 10 ml/ Dextrose 1 ,011.2 mls @ 42 mls/hr IV .Q24H [facility] Last Admin: 01/11/18 00:52 Dose: 42 mls/hr Propofol (Diprivan) 1,000 mg in 100 mls @ 2.313 mls/hr IV .Q24H PRN; Protocol; 5 MCG/KG/MIN PRN Reason: TITRATE PER MD ORDER Last Titration: 01/10/18 13:53 Dose: 30 mcg/kg/min, 13.88 mls/hr Lactated Ringer's (Lactated Ringer's) 1,000 mls @ 100 mls/hr IV .Q10H [facility] Last Admin: 01/11/18 02:48 Dose: 100 mls/hr Dexmedetomidine HCl 200 mcg/ (Sodium Chloride) 50 mls @ 4 mls/hr IV TITR PRN; Protocol; 0.2 MCG/KG/HR PRN Reason: Agitation Last Admin: 01/11/18 08:56 Dose: 1.5 mcg/kg/hr, 30 mls/hr Piperacillin Sod/Tazobactam (Sod 3.375 gm/ Sodium Chloride) 100 mls @ 200 mls/ hr IVPB Q6H BRIAN PRN Reason: Protocol Vancomycin HCl 1,000 mg/ (Sodium Chloride) 250 mls @ 166.6 mls/hr IVPB Q12H BRIAN PRN Reason: Protocol Lorazepam (Ativan) 2 mg IVP Q4H PRN PRN Reason: Anxiety Last Admin: 01/10/18 23:07 Dose: 2 mg Pantoprazole Sodium (Protonix Inj) 40 mg IVP DAILY BRIAN Last Admin: 01/10/18 10:00 Dose: 40 mg - Labs Labs: 01/11/18 06:00 01/11/18 06:00 PT 13.6 SECONDS (9.7-12.2) H 01/10/18 11:28 INR 1.2 01/10/18 11:28 APTT 34 SECONDS (21-34) 01/10/18 11:28
--- NOTE | 2018-01-11 09:38 | RAD ---
HISTORY: Elevated WBC. Self Extubated COMPARISON: 01/10/2018 FINDINGS: LUNGS: No active pulmonary disease. PLEURA: Small left pleural effusion. Possible trace right pleural effusion. No pneumothorax. CARDIOVASCULAR: Normal heart size. Status post removal of endotracheal tube and nasogastric tube. OSSEOUS STRUCTURES: No significant abnormalities. VISUALIZED UPPER ABDOMEN: Normal. OTHER FINDINGS: None. IMPRESSION: ET tube and NG tube have been removed. Small left pleural effusion and possible trace right pleural effusion.
[2018-01-11] MEDS: Piperacillin/Tazobact 3.375 GM in Sodium Chloride 100 ML IVPB SCH ×3 (10:28→21:35)
[2018-01-11] MEDS: Vancomycin 1 gm/NS 200 ml 1 GM/200 ML BAG IVPB SCH (10:51)
--- NOTE | 2018-01-11 13:44 | PCM.PSYCH ---
Initial Psychiatric Evaluation - Initial Psychiatric Evaluation Type of Admission: Voluntary Chief Complaint (in patient's own words): "I'm depressed" History of Present Illness and Precipitating Events: The pt is seen, chart reviewed. Consult requested for his suicide attempt He is a 37 yo WM, single, unemployed, has 2 children, lives alone in a [address] He has attempted suicide while intoxicated with alcohol. He OD'ed on psych meds and brought to ED and admitted to the hospital. He is known to the abstract writer from past admissions He states he was depressed bc of family issues. he missed his family on mothers ' day and OD'ed while intoxicated. He used to drink "a lot" but decreased lately. Denies drug use but MJ. Still feels depressed now but denies SI and wants to go to a rehab "to get really well" Past past psych history: He was diagnosed with bipolar disorder, ADHD and had multiple suicide attempts in the past. Family psych history: He doesn't know his family because he was adopted when he was 6 months old. Medical history: He has history of sciatica (nerve pain) and possibly asthma. However, he is stable now. Current Medications: Active Medications Generic Name Dose Route Start Last Admin Trade Name Freq PRN Reason Stop Dose Admin Albuterol/Ipratropium 3 ml 01/10/18 09:20 Duoneb 3 Mg/0.5 Mg (3 Ml) Ud INH RQ6 PRN Shortness of Breath Heparin Sodium (Porcine) 5,000 units 01/10/18 14:00 01/11/18 06:33 Heparin SC Not Given Q8 BRIAN Folic Acid 1 mg/ Thiamine HCl 1,011.2 mls @ 42 mls/hr 01/10/18 00:00 00:52 100 mg/ Multivitamins/Vitamin IV 42 mls/hr C 10 ml/ Dextrose .Q24H BRIAN Administration Lactated Ringer's 1,000 mls @ 100 mls/hr 01/10/18 04:15 01/11/18 10:31 Lactated Ringer's IV Not Given .Q10H BRIAN Dexmedetomidine HCl 200 mcg/ 50 mls @ 4 mls/hr 01/10/18 19:57 01/11/18 12:29 Sodium Chloride IV 1.5 mcg/kg/hr TITR PRN 30 mls/hr Agitation Administration Protocol 0.2 MCG/KG/HR Piperacillin Sod/Tazobactam 100 mls @ 200 mls/hr 01/11/18 10:00 01/11/18 10: 28 Sod 3.375 gm/ Sodium Chloride IVPB 200 mls/hr Q6H BRIAN Administration Protocol Vancomycin/Sodium Chloride 1 gm in 200 mls @ 133.333 mls/hr 01/11/18 11:00 10:51 Vancomycin 1 Gm/Ns 200 Ml IVPB 01/16/18 11:01 133.333 mls/hr Q12H BRIAN Administration Protocol Lorazepam 2 mg 01/10/18 09:17 01/10/18 23:07 Ativan IVP 2 mg Q4H PRN Administration Anxiety Pantoprazole Sodium 40 mg 01/10/18 10:00 01/11/18 09:04 Protonix Inj IVP 40 mg DAILY BRIAN Administration Past Psychiatric History - Past Psychiatric History Previous Treatment History: Inpatient Pertinent Medical Hx (Current Medical&Sleep Prob, Allergies): Allergies Allergy/AdvReac Type Severity Reaction Status Date / Time aspirin Allergy RASH Verified 01/09/18 23:05 weed pollen Allergy RASH Verified 01/09/18 23:05 Gabapentin [Neurontin] 800 mg PO DAILY #45 tab 01/03/18 Mirtazapine [Remeron] 45 mg PO HS #14 tab 01/03/18 Quetiapine Fumarate [Seroquel] 300 mg PO AMHS #30 tab 01/03/18 buPROPion SR [Wellbutrin] 100 mg PO BID #30 tab 01/03/18 hydrOXYzine Pamoate [Vistaril] 50 mg PO Q8 PRN #45 cap 01/03/18 Acetaminophen [Tylenol 325mg tab] 650 mg PO Q4 PRN #20 tab 01/07/18 Ibuprofen [Motrin] 600 mg PO Q6 PRN #20 tab 01/07/18 Review of Systems - Neurological Neurological: UNREMARKABLE - Psychiatric Psychiatric: Abnormal Sleep Pattern, Anxiety, Depression, Difficulty Concentrating. absent: Hallucinations, Homicidal Ideation, Paranoia, Suicidal Ideation Mental Status Examination - Personal Presentation Personal Presentation: Looks stated age - Affect Affect: Constricted - Motor Activity Motor Activity: Calm - Reliability in Providing Information Reliability in Providing Information: Good - Speech Speech: Organized - Mood Mood: Depressed, Anxious - Formal Thought Process Formal Thought Process: No Impairment - Cognitive Functions Orientation: Person, Place, Situation, Time Sensorium: Alert Attention/Concentration: Attentive Estimate of Intelligence: Average Judgement: Intact, as evidence by: Insight regarding need for hospitalization Memory: Recent intact, as evidence by: Ability to recall events of the day, Remote intact, as evidenced by: Abilit to recall sig. life events - Risk Risk: Withdrawal, Diminished functioning - Strength & Assets Inventory Strength & Assets Inventory: Cooperative - Limitations Limitations: Living alone, Other DSM 5 DX - DSM 5 DSM 5 Diagnosis: Major depression, recurrent, severe w/o psychosis Alcohol use d/o - severe Cannabis use d/o - severe - Recommended/Plan of Treatment Treatment Recommendations and Plan of Treatment: Remeron low dose for depression Support and psychoed Transfer to psych when he is medically cleared 33 min
--- NOTE | 2018-01-11 18:24 | CP.CCUPN ---
CCU Subjective - Physician Review Subjective (Free Text): Patient seen and examined at bedside. NO complaints at this time. CCU Objective - Vital Signs / Intake & Output Vital Signs (Last 4 hours): Vital Signs Temp Pulse Resp BP Pulse Ox 01/11/18 17:20 86 20 89 L 01/11/18 17:10 80 22 92 L 01/11/18 17:00 80 21 90 L 01/11/18 16:50 80 19 90 L 01/11/18 16:40 78 22 90 L 01/11/18 16:30 78 23 91 L 01/11/18 16:29 77 23 122/77 90 L 01/11/18 16:20 79 17 01/11/18 16:10 84 16 92 L 01/11/18 16:00 98.6 F 76 19 122/77 98 01/11/18 15:50 71 21 100 01/11/18 15:40 68 21 99 01/11/18 15:30 73 19 100 01/11/18 15:29 69 21 121/79 100 01/11/18 15:20 66 21 100 01/11/18 15:10 68 20 100 01/11/18 15:00 70 21 100 01/11/18 14:50 69 20 100 01/11/18 14:40 71 20 100 01/11/18 14:30 70 21 100 01/11/18 14:29 69 22 118/76 99 Intake and Output (Last 8hrs): Intake & Output 01/11/18 01/11/18 01/11/18 06:59 14:59 22:59 Intake Total 1626 1542 626 Output Total 755 321 6278 Balance 866 1192 -849 Intake: IV 250 150 50 Intake, IV Amount 1376 1392 576 Left Forearm 240 240 50 Right Forearm 1136 1152 526 Output: Urine 957 592 9728 Urethral (Puente) 169 805 6218 - Physical Exam Head: Positive for: Atraumatic, Normocephalic Pupils: Positive for: Sluggish Conjunctiva: Positive for: Normal Respiratory/Chest: Positive for: Clear to Auscultation Cardiovascular: Positive for: Regular Rate and Rhythm, Normal S1, S2 Abdomen: Positive for: Normal Bowel Sounds Upper Extremity: Negative for: Edema Lower Extremity: Negative for: Edema Neurological: Positive for: GCS=15 Skin: Positive for: Warm, Dry, Normal Color - Medications Active Medications: Active Medications Generic Name Dose Route Start Last Admin Trade Name Freq PRN Reason Stop Dose Admin Albuterol/Ipratropium 3 ml 01/10/18 09:20 Duoneb 3 Mg/0.5 Mg (3 Ml) Ud INH RQ6 PRN Shortness of Breath Heparin Sodium (Porcine) 5,000 units 01/10/18 14:00 01/11/18 14:46 Heparin SC 5,000 units Q8 BRIAN Administration Folic Acid 1 mg/ Thiamine HCl 1,011.2 mls @ 42 mls/hr 01/10/18 00:00 00:52 100 mg/ Multivitamins/Vitamin IV 42 mls/hr C 10 ml/ Dextrose .Q24H BRIAN Administration Lactated Ringer's 1,000 mls @ 100 mls/hr 01/10/18 04:15 01/11/18 15:18 Lactated Ringer's IV Not Given .Q10H BRIAN Dexmedetomidine HCl 200 mcg/ 50 mls @ 4 mls/hr 01/10/18 19:57 01/11/18 16:46 Sodium Chloride IV 0 mcg/kg/hr TITR PRN 0 mls/hr Agitation Titration Protocol 0.2 MCG/KG/HR Piperacillin Sod/Tazobactam 100 mls @ 200 mls/hr 01/11/18 10:00 01/11/18 15: 25 Sod 3.375 gm/ Sodium Chloride IVPB 200 mls/hr Q6H BRIAN Administration Protocol Vancomycin/Sodium Chloride 1 gm in 200 mls @ 133.333 mls/hr 01/11/18 11:00 10:51 Vancomycin 1 Gm/Ns 200 Ml IVPB 01/16/18 11:01 133.333 mls/hr Q12H BRIAN Administration Protocol Lorazepam 2 mg 01/10/18 09:17 01/10/18 23:07 Ativan IVP 2 mg Q4H PRN Administration Anxiety Pantoprazole Sodium 40 mg 01/10/18 10:00 01/11/18 09:04 Protonix Inj IVP 40 mg DAILY BRIAN Administration - Patient Studies Lab Studies: Microbiology Studies 01/10/18 05:05 MRSA Culture (Admit) - Final Nose MRSA NOT DETECTED 01/09/18 23:39 Urine Culture - Final Urine,Catheterized No Growth (<1,000 CFU/ML) Lab Studies 01/11/18 01/11/18 01/11/18 Range/Units 16:45 12:09 06:00 WBC (4.8-10.8) K/uL RBC (4.40-5.90) Mil/uL Hgb (12.0-18.0) g/dL Hct (35.0-51.0) % MCV (80.0-94.0) fL MCH (27.0-31.0) pg MCHC (33.0-37.0) g/dL RDW (11.5-14.5) % Plt Count (130-400) K/uL MPV (7.2-11.7) fL Neut % (Auto) (50.0-75.0) % Lymph % (Auto) (20.0-40.0) % [place] % (Auto) (0.0-10.0) % Eos % (Auto) (0.0-4.0) % Baso % (Auto) (0.0-2.0) % Neut # (Auto) (1.8-7.0) K/uL Lymph # (Auto) (1.0-4.3) K/uL [place] # (Auto) (0.0-0.8) K/uL Eos # (Auto) (0.0-0.7) K/uL Baso # (Auto) (0.0-0.2) K/uL Neutrophils % (Manual) (50-75) % Band Neutrophils % (0-2) % Lymphocytes % (Manual) (20-40) % Monocytes % (Manual) (0-10) % Platelet Estimate (NORMAL) Anisocytosis (manual) Sodium 142 (132-148) mmol/L Potassium 3.7 (3.6-5.2) mmol/L Chloride 104 (98-107) mmol/L Carbon Dioxide 28 (22-30) mmol/L Anion Gap 13 (10-20) BUN 4 L (9-20) mg/dL Creatinine 0.7 L (0.8-1.5) mg/dL Est GFR ( Amer) > 60 Est GFR (Non-Af Amer) > 60 POC Glucose (mg/dL) 154 H 133 H (65-110) mg/dL Random Glucose 110 (75-110) mg/dL Calcium 8.4 L (8.6-10.4) mg/dl Phosphorus 3.4 (2.5-4.5) mg/dL Magnesium 1.5 L (1.6-2.3) mg/dL Total Bilirubin 0.7 (0.2-1.3) mg/dL AST 33 (17-59) U/L ALT 31 (21-72) U/L Alkaline Phosphatase 60 (38-126) U/L Total Protein 5.9 L (6.3-8.3) g/dL Albumin 3.3 L (3.5-5.0) g/dL Globulin 2.6 (2.2-3.9) gm/dL Albumin/Globulin Ratio 1.3 (1.0-2.1) 01/11/18 01/11/18 Range/Units 06:00 05:33 WBC 16.8 H D (4.8-10.8) K/uL RBC 3.97 L (4.40-5.90) Mil/uL Hgb 12.9 (12.0-18.0) g/dL Hct 37.8 (35.0-51.0) % MCV 95.1 H (80.0-94.0) fL MCH 32.5 H (27.0-31.0) pg MCHC 34.2 (33.0-37.0) g/dL RDW 15.7 H (11.5-14.5) % Plt Count 274 (130-400) K/uL MPV 7.5 (7.2-11.7) fL Neut % (Auto) 90.0 H (50.0-75.0) % Lymph % (Auto) 3.9 L (20.0-40.0) % [place] % (Auto) 5.6 (0.0-10.0) % Eos % (Auto) 0.2 (0.0-4.0) % Baso % (Auto) 0.3 (0.0-2.0) % Neut # (Auto) 15.1 H (1.8-7.0) K/uL Lymph # (Auto) 0.7 L (1.0-4.3) K/uL [place] # (Auto) 0.9 H (0.0-0.8) K/uL Eos # (Auto) 0.0 (0.0-0.7) K/uL Baso # (Auto) 0.0 (0.0-0.2) K/uL Neutrophils % (Manual) 72 (50-75) % Band Neutrophils % 15 H* (0-2) % Lymphocytes % (Manual) 4 L (20-40) % Monocytes % (Manual) 9 (0-10) % Platelet Estimate Normal (NORMAL) Anisocytosis (manual) Slight Sodium (132-148) mmol/L Potassium (3.6-5.2) mmol/L Chloride (98-107) mmol/L Carbon Dioxide (22-30) mmol/L Anion Gap (10-20) BUN (9-20) mg/dL Creatinine (0.8-1.5) mg/dL Est GFR ( Amer) Est GFR (Non-Af Amer) POC Glucose (mg/dL) 133 H (65-110) mg/dL Random Glucose (75-110) mg/dL Calcium (8.6-10.4) mg/dl Phosphorus (2.5-4.5) mg/dL Magnesium (1.6-2.3) mg/dL Total Bilirubin (0.2-1.3) mg/dL AST (17-59) U/L ALT (21-72) U/L Alkaline Phosphatase (38-126) U/L Total Protein (6.3-8.3) g/dL Albumin (3.5-5.0) g/dL Globulin (2.2-3.9) gm/dL Albumin/Globulin Ratio (1.0-2.1) Laboratory Results - last 24 hr 01/11/18 01/11/18 01/11/18 05:33 06:00 06:00 WBC 16.8 H D RBC 3.97 L Hgb 12.9 Hct 37.8 MCV 95.1 H MCH 32.5 H MCHC 34.2 RDW 15.7 H Plt Count 274 MPV 7.5 Neut % (Auto) 90.0 H Lymph % (Auto) 3.9 L [place] % (Auto) 5.6 Eos % (Auto) 0.2 Baso % (Auto) 0.3 Neut # (Auto) 15.1 H Lymph # (Auto) 0.7 L [place] # (Auto) 0.9 H Eos # (Auto) 0.0 Baso # (Auto) 0.0 Neutrophils % (Manual) 72 Band Neutrophils % 15 H* Lymphocytes % (Manual) 4 L Monocytes % (Manual) 9 Platelet Estimate Normal Anisocytosis (manual) Slight Sodium 142 Potassium 3.7 Chloride 104 Carbon Dioxide 28 Anion Gap 13 BUN 4 L Creatinine 0.7 L Est GFR ( Amer) > 60 Est GFR (Non-Af Amer) > 60 POC Glucose (mg/dL) 133 H Random Glucose 110 Calcium 8.4 L Phosphorus 3.4 Magnesium 1.5 L Total Bilirubin 0.7 AST 33 ALT 31 Alkaline Phosphatase 60 Total Protein 5.9 L Albumin 3.3 L Globulin 2.6 Albumin/Globulin Ratio 1.3 01/11/18 01/11/18 12:09 16:45 WBC RBC Hgb Hct MCV MCH MCHC RDW Plt Count MPV Neut % (Auto) Lymph % (Auto) [place] % (Auto) Eos % (Auto) Baso % (Auto) Neut # (Auto) Lymph # (Auto) [place] # (Auto) Eos # (Auto) Baso # (Auto) Neutrophils % (Manual) Band Neutrophils % Lymphocytes % (Manual) Monocytes % (Manual) Platelet Estimate Anisocytosis (manual) Sodium Potassium Chloride Carbon Dioxide Anion Gap BUN Creatinine Est GFR ( Amer) Est GFR (Non-Af Amer) POC Glucose (mg/dL) 133 H 154 H Random Glucose Calcium Phosphorus Magnesium Total Bilirubin AST ALT Alkaline Phosphatase Total Protein Albumin Globulin Albumin/Globulin Ratio EKG/Cardiology Studies: Cardiology / EKG Studies 01/10/18 20:58 EKG [ELECTROCARDIOGRAM] Routine Comment: Mode Of Transportation: BED Reason For Exam: S/P OD INTENTIONAL 01/10/18 22:11 EKG [ELECTROCARDIOGRAM] Q6H Comment: Mode Of Transportation: Reason For Exam: qtc 01/11/18 08:55 EKG [ELECTROCARDIOGRAM] Stat Comment: Mode Of Transportation: PORTABLE Reason For Exam: Prolonged QTc 01/12/18 08:00 EKG [ELECTROCARDIOGRAM] Routine Comment: Mode Of Transportation: BED Reason For Exam: assess for QTc Fingerstick Blood Sugar Results: 133 Review of Systems - Constitutional Constitutional: absent: Fever, Chills - Cardiovascular Cardiovascular: absent: Chest Pain - Respiratory Respiratory: absent: Dyspnea - Gastrointestinal Gastrointestinal: absent: Abdominal Pain - Genitourinary Genitourinary: UNREMARKABLE - Neurological Neurological: UNREMARKABLE - Psychiatric Psychiatric: Depression Critical Care Progress Note - Nutrition Nutrition: Nutrition Category Date Time Status Heart Healthy Diet [DIET] Diets 01/11/18 Dinner Active Assessment/Plan - Assessment and Plan (Free Text) Assessment: 37 y/o male with pmx of depression, bipolar, ADHA and suicidal attempts presents to [facility] admitted to ICU for evaluation and treatment of OD. Plan: AMS: EEG Pending Read CT negative for Acute abnormaltities Elevated EtOH lvl and Cannibinoid Positive Cont. Bananna bag, Ativan PRN Cont. DuoNebs PRN ID [id number] Vanc and Zosyn Started by primary F/U Panculures Psych: A: Depression w/ Suicidal IDeation 1:1 Psych on Consult Patient discussed with ICU Attending Marizol Hu, PGY-1
--- NOTE | 2018-01-11 22:10 | CT ---
EXAM: CT Head Without Intravenous Contrast EXAM DATE/TIME: 01/11/2018 8:30 AM CLINICAL HISTORY: 37 years old, male; Signs and symptoms; Altered mental status/memory loss; Additional info: AMS TECHNIQUE: Axial computed tomography images of the head/brain without intravenous contrast. All CT scans at this facility use one or more dose reduction techniques, viz.: automated exposure control; ma/kV adjustment per patient size (including targeted exams where dose is matched to indication; i.e. head); or iterative reconstruction technique. COMPARISON: CT - HEAD W/O CONTRAST 2018-01-10 04:34 FINDINGS: Brain and ventricles: Ventricles are normal in size and configuration. There is no midline shift. There are no intra-axial or extra-axial mass lesions or areas of hemorrhage. There are no abnormal fluid collections. Valle-white differentiation is maintained. Bones: Cranial vault is intact. Soft tissues: unremarkable Sinuses: There is no acute sinusitis. There is mucoperiosteal thickening in the sinuses Ears and mastoids: Middle ears and mastoids are unremarkable Orbits: Orbital contents are unremarkable. IMPRESSION: No acute intracranial abnormality
[2018-01-12] MEDS: Vancomycin 1 gm/NS 200 ml 1 GM/200 ML BAG IVPB SCH ×3 (00:18→22:13)
[2018-01-12] MEDS: Folic Acid 1 MG, Thiamine 100 MG, Multivitamin (MVI) 10 ML in Dextrose 5% In Water 1,00... IV SCH (00:19)
[2018-01-12] MEDS: Piperacillin/Tazobact 3.375 GM in Sodium Chloride 100 ML IVPB SCH ×4 (03:47→21:00)
[2018-01-12 06:24] LABS: BASO # 0.1 K/uL (0.0-0.2); BASO % 0.7 % (0.0-2.0); EOS # 0.2 K/uL (0.0-0.7); EOS % 1.3 % (0.0-4.0); HEMOGLOBIN 12.2 g/dL (12.0-18.0); LYMPH # 1.6 K/uL (1.0-4.3); LYMPH % 10.9 % (20.0-40.0); MEAN CELL VOLUME 94.9 fL (80.0-94.0); MEAN CORPUSCULAR HEMOGLOBIN 33.2 pg (27.0-31.0); MONO % 7.2 % (0.0-10.0); NEUT # 11.5 K/uL (1.8-7.0); NEUT % 79.9 % (50.0-75.0); NRBC % 0.1 % (0.0-2.0); RBC 3.67 Mil/uL (4.40-5.90); RED CELL DISTRIBUTION WIDTH 15.6 % (11.5-14.5); WHITE BLOOD COUNT 14.4 K/uL (4.8-10.8)
[2018-01-12] MEDS: Lactated Ringer's 1,000 ML IV SCH (06:26)
[2018-01-12 06:43] LABS: ALB/GLOB RATIO 1.1 (1.0-2.1); ALBUMIN 3.3 g/dL (3.5-5.0); ALT/SGPT 26 U/L (21-72); AST/SGOT 23 U/L (17-59); BLOOD UREA NITROGEN 11 mg/dL (9-20); CALCIUM 8.5 mg/dl (8.6-10.4); GFR AFRICAN-AMERICAN > 60; GFR NON-AFRICAN AMERICAN > 60
[2018-01-12] MEDS: Pantoprazole 40 mg EC Tab PO SCH (12:36)
--- NOTE | 2018-01-12 13:34 | PCM.PYCHPN ---
Psychiatric Progress Note - Psychiatric Progress Note Patient seen today, length of contact: 18 min Patient Chief Complaint: "I need to go to a program" Problems Identified/Issues Discussed: The pt is seen, chart reviewed He is still depressed but denies SI/SP now, contracts for safety He wants to go to a LTR after this (after psych inpatient that is) No AVH/del Agreed to start meds Medication Change: Yes Medical Record Reviewed: Yes Mental Status Examination - Cognitive Function Orientation: Person, Place, Situation, Time Memory: Intact Attention: WNL Concentration: Poor Association: WNL Fund of Knowledge: WNL - Mood Mood: Depressed, Anxious - Affect Affect: Constricted - Speech Speech: Appropriate - Formal Thought Process Formal Thought Process: No Impairment - Suicidal Ideation Suicidal Ideation: No - Homicidal Ideation Homicidal Ideation: No Goal/Treatment Plan - Goal/Treatment Plan Need for Continued Stay: Severe depression anxiety, Discharge may exacerbated symptoms, Severe functional impairment Progress Toward Problem(s) and Goals/Treatment Plan: Start Remeron for depression and insomnia Consider naltrexone for alcohol cravings Support and psychoed DC 1:1 - pt contracts and will follow safety plan (discussed) He is future- oriented and sobered up now. Transfer to psych after medically cleared. But pls call promotion writer first to confirm bed availability.
--- NOTE | 2018-01-12 17:25 | CP.PCM.PN ---
Subjective - Date & Time of Evaluation Date of Evaluation: 01/12/18 Time of Evaluation: 17:15 - Subjective Subjective: Hospitalist Progress Note Patient was seen and examined at 5:15 AM 01/12/18 ICU Bed #7 37 year old male who was admitted on 01/09/18 after suicide attempt by ingesting multiple medications: seroquel, wellbutrin, vistoril, remeron, and gabapentin. Alcohol level upon presentation was 134. Urine Drug Screen was negative for salicylates and tylenol. Poison control was notified and recommended monitoring electrolytes and ekg. He was given activated charcoal 50 gm x 1 dose. He required intubation and is therefore was being managed in the ICU. However, during night of 01/10/18 he self extubated and since that time has been more awake and alert. He is for transfer to regular medical floor on evening 01/12/18. Chest X Ray 01/10/18: NO focal consolidation/pleural effusion/pneumothorax Chest X Ray 01/11/18: Small left and trace right pleural effusion CT Head 01/10/18 : NO evidence of an acute intracranial hemorrhage/midline shift/ mass effect CT Head 01/11/18 : NO evidence of an acute intracranial hemorrhage Upon FULL ROS: NO dysphagia/odynopahgia NO soreness in throat NO cough NO sinus/nasal congestion NO fever/chills NO muscle aches/pains NO joint pain: has occasional accumulation of fluid in the right knee. This was not noted at this time NO chest pain/palpations NO SOB NO abdominal pain NO n/v/d/c NO burning pain with urination NO BROWNING NO lightheadedness/dizziness NO paresthesias General: AAOX3, NAD HEENT: NCA, Pupils are round/equal/but sluggishly reactive to light. NO cervical /supraclavicular/submandibular lymphadenopathy, Nasal Turbinates are nonerythematous/nonedematous, NO thyromegaly Cardio: NS1 and NS2, NO M/R/G Resp: CTA B/L, NO R/R/W GI: BSx4, Soft, NT, NO HSM Ext: Pulses are strong and equal, Capillary Refill is 2 seconds, NO edema Neuro:CN II through XII are grossly intact Assessment and Plan: 1). Suicide Attempt via ingestion of multiple medications Patient stated that he wanted to live and that he wanted to get help (although not a fan of group therapy). He is agreeable to in-patient psychiatry once he is cleared by the Medicine Team Continue 1:1 QTc has normalized Status: Acute 2). Severe Anxiety/Depression Remeron 15 mg PO HS Alprazolam 2 mg IV Q4H PRN Anxiety Psychiatry Dr. Scott Please see Assessment and Plan #3 Status: Acute 3). Elevated WBC with Bands This was noted on 01/11/18 however WBC is now declining and NO bands noted on No fevers and vitals are stable Could this be secondary to possible aspiration from self extubation? Repeat Chest X Ray on 01/11/18 did not indicate any evidence of consolidation/ infiltrate Blood Cultures x 2 are negative to date Urine Cultures show NO growth Vancomycin 1 gm IV Q12H and Zosyn 3.375 gm IV Q6H and these will be discontinued on 01/13/18 should the Blood Culture 01/11/18 continue to be negative , the WBC continues to decline, and there are NO fevers. Once this occurs, Medicine Team will clear patient for in-patient Psychiatry and place transfer order after confirming bed availability Status: Acute 4). Prophylaxis Duoneb Q6H PRN Heparin 5,000 Units SC Q8H Protonix 40 mg IV 1x/day Florastor 250 mg PO 2x/day Lucio Wilson D.O. Objective - Vital Signs/Intake and Output Vital Signs (last 24 hours): Temp Pulse Resp BP Pulse Ox 98.5 F 77 20 134/91 H 97 01/12/18 16:00 01/12/18 15:51 01/12/18 14:00 01/12/18 16:00 01/12/18 16:00 Intake and Output: 01/12/18 01/12/18 06:59 18:59 Intake Total 2186 1108 Output Total 5365 2520 Balance 236 -1412 - Medications Medications: Current Medications Albuterol/Ipratropium (Duoneb 3 Mg/0.5 Mg (3 Ml) Ud) 3 ml INH RQ6 PRN PRN Reason: Shortness of Breath Heparin Sodium (Porcine) (Heparin) 5,000 units SC Q8 BRIAN Last Admin: 01/12/18 13:52 Dose: 5,000 units Piperacillin Sod/Tazobactam (Sod 3.375 gm/ Sodium Chloride) 100 mls @ 200 mls/ hr IVPB Q6H BRIAN PRN Reason: Protocol Last Admin: 01/12/18 16:21 Dose: 200 mls/hr Vancomycin/Sodium Chloride (Vancomycin 1 Gm/Ns 200 Ml) 1 gm in 200 mls @ 133.333 mls/hr IVPB Q12H BRIAN PRN Reason: Protocol Stop: 01/16/18 11:01 Last Admin: 01/12/18 11:12 Dose: 133.333 mls/hr Lorazepam (Ativan) 2 mg IVP Q4H PRN PRN Reason: Anxiety Last Admin: 01/10/18 23:07 Dose: 2 mg Mirtazapine (Remeron) 15 mg PO HS BRIAN Pantoprazole Sodium (Protonix Ec Tab) 40 mg PO DAILY BRIAN Last Admin: 01/12/18 12:36 Dose: 40 mg - Labs Labs: 01/12/18 06:14 01/12/18 06:15 PT 13.6 SECONDS (9.7-12.2) H 01/10/18 11:28 INR 1.2 01/10/18 11:28 APTT 34 SECONDS (21-34) 01/10/18 11:28
[2018-01-13] MEDS: Piperacillin/Tazobact 3.375 GM in Sodium Chloride 100 ML IVPB SCH (04:07)
[2018-01-13 07:03] LABS: BASO # 0.1 K/uL (0.0-0.2); BASO % 0.9 % (0.0-2.0); EOS # 0.3 K/uL (0.0-0.7); EOS % 3.5 % (0.0-4.0); HEMOGLOBIN 13.5 g/dL (12.0-18.0); LYMPH # 1.3 K/uL (1.0-4.3); LYMPH % 14.4 % (20.0-40.0); MEAN CELL VOLUME 94.1 fL (80.0-94.0); MEAN CORPUSCULAR HEMOGLOBIN 32.9 pg (27.0-31.0); MONO # 0.8 K/uL (0.0-0.8); MONO % 9.1 % (0.0-10.0); NEUT # 6.7 K/uL (1.8-7.0); NEUT % 72.1 % (50.0-75.0); RBC 4.1 Mil/uL (4.40-5.90); RED CELL DISTRIBUTION WIDTH 15.2 % (11.5-14.5); WHITE BLOOD COUNT 9.3 K/uL (4.8-10.8)
[2018-01-13 07:21] LABS: ALB/GLOB RATIO 1.1 (1.0-2.1); ALBUMIN 3.7 g/dL (3.5-5.0); ALT/SGPT 26 U/L (21-72); AST/SGOT 23 U/L (17-59); BLOOD UREA NITROGEN 10 mg/dL (9-20); CALCIUM 9.1 mg/dl (8.6-10.4); GFR AFRICAN-AMERICAN > 60; GFR NON-AFRICAN AMERICAN > 60
[2018-01-13 08:31] VITALS: O2SAT 96
[2018-01-13] MEDS: Pantoprazole 40 mg EC Tab PO SCH (09:35)
--- NOTE | 2018-01-13 09:52 | CP.PCM.PN ---
Subjective - Date & Time of Evaluation Date of Evaluation: 01/13/18 Time of Evaluation: 09:00 - Subjective Subjective: Medicine Note for Hospitalist Service- Dr. Lucio Wilson 37 year old male who was admitted on 01/09/18 after suicide attempt by ingesting multiple medications: seroquel, wellbutrin, vistoril, remeron, and gabapentin. Alcohol level upon presentation was 134. Urine Drug Screen was negative for salicylates and tylenol. Poison control was notified and recommended monitoring electrolytes and ekg. He was given activated charcoal 50 gm x 1 dose. He required intubation and is therefore was being managed in the ICU. However, during night of 01/10/18 he self extubated and since that time has been more awake and alert. Patient is currently on medicine floor. He is medically stable , QTC interval is within normal limit, pending transfer to [facility] upon bed availability. Chest X Ray 01/10/18: NO focal consolidation/pleural effusion/pneumothorax Chest X Ray 01/11/18: Small left and trace right pleural effusion CT Head 01/10/18 : NO evidence of an acute intracranial hemorrhage/midline shift/ mass effect CT Head 01/11/18 : NO evidence of an acute intracranial hemorrhage Upon FULL ROS: NO dysphagia/odynopahgia NO soreness in throat NO cough NO sinus/nasal congestion NO fever/chills NO muscle aches/pains NO joint pain: has occasional accumulation of fluid in the right knee. This was not noted at this time NO chest pain/palpations NO SOB NO abdominal pain NO n/v/d/c NO burning pain with urination NO BROWNING NO lightheadedness/dizziness NO paresthesias Objective - Vital Signs/Intake and Output Vital Signs (last 24 hours): Temp Pulse Resp BP Pulse Ox 98 F 69 20 116/81 96 01/13/18 08:00 01/13/18 08:00 01/13/18 08:00 01/13/18 08:00 01/13/18 08:00 Intake and Output: 01/13/18 01/13/18 06:59 18:59 Intake Total 100 Balance 100 - Medications Medications: Current Medications Albuterol/Ipratropium (Duoneb 3 Mg/0.5 Mg (3 Ml) Ud) 3 ml INH RQ6 PRN PRN Reason: Shortness of Breath Heparin Sodium (Porcine) (Heparin) 5,000 units SC Q8 [facility] Last Admin: 01/13/18 06:30 Dose: 5,000 units Lorazepam (Ativan) 2 mg IVP Q4H PRN PRN Reason: Anxiety Last Admin: 01/10/18 23:07 Dose: 2 mg Mirtazapine (Remeron) 15 mg PO HS [facility] Last Admin: 01/12/18 21:30 Dose: 15 mg Pantoprazole Sodium (Protonix Ec Tab) 40 mg PO DAILY [facility] Last Admin: 01/13/18 09:35 Dose: 40 mg - Labs Labs: 01/13/18 06:56 01/13/18 06:56 PT 13.6 SECONDS (9.7-12.2) H 01/10/18 11:28 INR 1.2 01/10/18 11:28 APTT 34 SECONDS (21-34) 01/10/18 11:28 - Constitutional Appears: No Acute Distress - Head Exam Head Exam: NORMAL INSPECTION, NORMOCEPHALIC - Eye Exam Eye Exam: EOMI, Normal appearance, PERRL Pupil Exam: NORMAL ACCOMODATION - ENT Exam ENT Exam: Mucous Membranes Moist, Normal Exam - Respiratory Exam Respiratory Exam: Clear to Ausculation Bilateral, NORMAL BREATHING PATTERN - Cardiovascular Exam Cardiovascular Exam: REGULAR RHYTHM - GI/Abdominal Exam GI & Abdominal Exam: Soft, Normal Bowel Sounds. absent: Distended, Tenderness - Extremities Exam Extremities Exam: Normal Inspection. absent: Pedal Edema, Tenderness - Neurological Exam Neurological Exam: Alert, Awake, Oriented x3 - Psychiatric Exam Psychiatric exam: Normal Affect, Normal Mood - Skin Skin Exam: Dry, Intact, Normal Color, Warm Assessment and Plan - Assessment and Plan (Free Text) Plan: 1). Suicide Attempt via ingestion of multiple medications Patient stated that he wanted to live and that he wanted to get help (although not a fan of group therapy). He is agreeable to in-patient psychiatry once he is cleared by the Medicine Team Continue 1:1 QTc has normalized 2). Severe Anxiety/Depression Remeron 15 mg PO HS Alprazolam 2 mg IV Q4H PRN Anxiety Psychiatry Dr. Scott Please see Assessment and Plan #3 3). Elevated WBC with Bands --> RESOLVED This was noted on 01/11/18 however WBC is now declining and NO bands noted on No fevers and vitals are stable Could this be secondary to possible aspiration from self extubation? Repeat Chest X Ray on 01/11/18 did not indicate any evidence of consolidation/ infiltrate Blood Cultures x 2 are negative to date Urine Cultures show NO growth Vancomycin 1 gm IV Q12H and Zosyn 3.375 gm IV Q6H and these are discontinued today 01/13/18 should the Blood Culture 01/11/18 continue to be negative, the WBC continues to decline, and there are NO fevers. 4). Prophylaxis Duoneb Q6H PRN Heparin 5,000 Units SC Q8H Protonix 40 mg PO 1x/day Florastor 250 mg PO 2x/day Disposition: He is medically stable, afebrile, no white count, labs have normalized, QTC interval is within normal limit, pending transfer to [facility] upon bed availability, Dr. Scott is aware. ELIAS Wilson, Debbi Dwyer DO, PGY-1
[2018-01-13] MEDS ORDERED: Pantoprazole 40 mg EC Tab PO SCH (10:00)
--- NOTE | 2018-01-13 12:30 | PCM.PYCHPN ---
Psychiatric Progress Note - Psychiatric Progress Note Patient seen today, length of contact: 17 min Patient Chief Complaint: "I'm depressed but better" Problems Identified/Issues Discussed: The pt is seen, chart reviewed He is transferred to psych Support given, CBT and [place] used briefly No new symptoms reported, improving slowly and needs more time No SEs from medications, risks discussed. After care discussed - wants rehab Not suicidal now and contracts for safety Medication Change: Yes Medical Record Reviewed: Yes Mental Status Examination - Cognitive Function Orientation: Person, Place, Situation, Time Memory: Intact Attention: WNL Concentration: Poor Association: WNL Fund of Knowledge: WNL - Mood Mood: Depressed, Anxious - Affect Affect: Constricted - Speech Speech: Appropriate - Formal Thought Process Formal Thought Process: No Impairment - Suicidal Ideation Suicidal Ideation: No - Homicidal Ideation Homicidal Ideation: No Goal/Treatment Plan - Goal/Treatment Plan Need for Continued Stay: Severe depression anxiety, Discharge may exacerbated symptoms, Severe functional impairment Progress Toward Problem(s) and Goals/Treatment Plan: Remeron for depression and insomnia Consider naltrexone for alcohol cravings Support and psychoed Groups and activities CBT and [place] After care - rehab Estimated Date of D/C: 01/21/18
--- NOTE | 2018-01-13 13:44 | PCM.BM ---
<Chandrika Zheng - Last Filed: 01/13/18 13:40> Treatment Plan Problems - Problems identified on initial assessmt Depression Date Initiated: 01/13/18 Time Initiated: 13:41 Assessment reference: NA Status: Active Suicidal Ideation Date Initiated: 01/13/18 Time Initiated: 13:41 Assessment reference: NA Status: Active Treatment assets and liabiliti Patient Assests: cooperative, ADL independent, good support system, good past tx response, cognitively intact, good interpersonal skills Patient Liabilities: live alone, financial problems, substance abuse (hx ETOH, THC), medical problems - Milieu Protocol Maintain good personal hygiene: daily Encourage regular showers, daily Remind patient to perform daily oral care, daily Assist patient to perform ADL's (Self) Conduct patient checks and document Observation sheet: Q15 minutes (Safety) Maintain personal safety: every shift Educate patient to report safety concerns to staff, every shift Monitor environment for contraband/sharps Medication safety: Monitor for expected outcome, potential side effects: every shift, Assess barriers to learning: every shift, Assess readiness for medication education: every shift Milieu Narrative: Start Remeron for depression and insomnia Consider naltrexone for alcohol cravings Support and psychoed DC 1:1 - pt contracts and will follow safety plan (discussed) He is future- oriented and sobered up now. Transfer to psych after medically cleared. But [facility] call screenplay writer first to confirm bed availability. Discharge/Continuing Care - Treatment Team Participation Patient/Family/SO Statement: Start Remeron for depression and insomnia Consider naltrexone for alcohol cravings Support and psychoed DC 1:1 - pt contracts and will follow safety plan (discussed) He is future- oriented and sobered up now. Transfer to psych after medically cleared. But pls call screenplay writer first to confirm bed availability. <Claude Scott - Last Filed: 01/13/18 23:55> - Diagnosis (1) Alcohol abuse Status: Acute Interventions: 01/13/18 23:55 * Assess 7x/week regarding severity of withdrawal * Educate regarding risks, benefits, side effects and alternatives of medications * Use Motivational Interviewing for abstinence * Use CBT for relapse prevention * Medication management for withdrawal symptoms * Encourage medication assisted treatment * (2) Depression Status: Acute Interventions: 01/13/18 23:55 * Assess/adjust medications daily and /or as needed * See patient on an individual basis 7x/week to assess symptoms of depression * Monitor for side effects & effectiveness of medications * <Rosalie Michel - Last Filed: 01/14/18 11:01> Family Contact Family involvement: Family/SO is involved Family contact: Patient declines to allow family contact at present - Goals for Treatment Patient goals for treatment: "I want to go to rehab." Discharge/Continuing Care - Education Needs Education Needs: Patient Medication, Patient Coping Skills, Patient Placement options, Patient Community resources - Discharge Discharge Criteria: Tolerates medication w/o severe side effects, Free of Suicidal thoughts, Reduction of target symptoms Discharge to:: Substance Abuse Rehab - Treatment Team Participation Discussed with Family/SO: No Was Patient/Family/SO present at Treatment Team Meeting: Yes
--- NOTE | 2018-01-13 22:54 | CARD ---
APPROVED REPORT EKG Measurement Heart [id number] <Conclusion> Normal sinus rhythm Normal ECG
[2018-01-14] MEDS: Pantoprazole 40 mg EC Tab PO SCH (10:05)
--- NOTE | 2018-01-14 13:38 | PCM.PYCHPN ---
Psychiatric Progress Note - Psychiatric Progress Note Patient seen today, length of contact: 18 min Patient Chief Complaint: "I need help" Problems Identified/Issues Discussed: The pt is seen with the team and alone, chart reviewed, case discussed with staff. The pt is compliant with medications and reports no side-effects. Symptoms are improving but needs more time to stabilize. After care discussed, support and psychoeducation given. Medication Change: Yes Medical Record Reviewed: Yes Mental Status Examination - Cognitive Function Orientation: Person, Place, Situation, Time Memory: Intact Attention: WNL Concentration: Poor Association: WNL Fund of Knowledge: WNL - Mood Mood: Depressed, Anxious - Affect Affect: Constricted - Speech Speech: Appropriate - Formal Thought Process Formal Thought Process: No Impairment - Suicidal Ideation Suicidal Ideation: No - Homicidal Ideation Homicidal Ideation: No Goal/Treatment Plan - Goal/Treatment Plan Need for Continued Stay: Severe depression anxiety, Discharge may exacerbated symptoms, Severe functional impairment Progress Toward Problem(s) and Goals/Treatment Plan: Remeron for depression and insomnia Consider naltrexone for alcohol cravings Support and psychoed Groups and activities CBT and [place] After care - rehab Estimated Date of D/C: 01/21/18
--- NOTE | 2018-01-14 17:22 | CARD ---
APPROVED REPORT EKG Measurement Heart [id number] <Conclusion> Normal sinus rhythm Normal ECG
[2018-01-15 06:23] VITALS: RESP 18
[2018-01-15] MEDS: Pantoprazole 40 mg EC Tab PO SCH (09:44)
--- NOTE | 2018-01-15 16:18 | PCM.PYCHPN ---
Psychiatric Progress Note - Psychiatric Progress Note Patient seen today, length of contact: 18 min Patient Chief Complaint: "I'm Fine" Problems Identified/Issues Discussed: Patient was seen. Chart was reviewed important content noted. Nurse input received. Patient has no new complaints. No events overnight. Patient slept well and is eating well. Patient denies any depressive symptoms. Denies suicidal or homicidal ideations. Patient does not report hallucinations. No delusions elicited. No paranoia elicited. Patient has remained in good clinical and behavioral control. Symptoms are improving, but needs more time to stabilize. Medication Change: No Medical Record Reviewed: Yes Mental Status Examination - Cognitive Function Orientation: Person, Place, Situation, Time Memory: Intact Attention: WNL Concentration: Poor Association: WNL Fund of Knowledge: WNL Decription of patient's judgement and insights: fair/fair - Mood Mood: Depressed, Anxious - Affect Affect: Constricted - Speech Speech: Appropriate - Formal Thought Process Formal Thought Process: No Impairment Psychotic Thoughts and Behaviors: denied - Suicidal Ideation Suicidal Ideation: No Plan: denied - Homicidal Ideation Homicidal Ideation: No Plan: denied Goal/Treatment Plan - Goal/Treatment Plan Need for Continued Stay: Severe depression anxiety, Discharge may exacerbated symptoms, Severe functional impairment Progress Toward Problem(s) and Goals/Treatment Plan: Continue current treatment as per primary team. Psychoeducation provided regarding diagnosis, treatment, meds benefits, side effects, risk and alternative choices. Pt verbalized understanding and agree with the treatment plan. Continue current management and medications. Patient educated about risks, benefits, side effects & alternatives of meds. Pt verbalized understanding & agreed with the above. Therapy in milieu. Estimated Date of D/C: 01/21/18
[2018-01-16] MEDS: Pantoprazole 40 mg EC Tab PO SCH (10:03)
--- NOTE | 2018-01-16 17:09 | PCM.PYCHPN ---
Psychiatric Progress Note - Psychiatric Progress Note Patient seen today, length of contact: 18 min Patient Chief Complaint: "I had trouble in sleep" Problems Identified/Issues Discussed: Patient was seen. Chart was reviewed important content noted. Nurse input received. Patient stated that he has trouble in sleep and needs high dose of trazodone. No events overnight. Patient is eating well. Patient denies any depressive symptoms. Denies suicidal or homicidal ideations. Patient does not report hallucinations. No delusions elicited. No paranoia elicited. Patient has remained in good clinical and behavioral control. Symptoms are improving, but needs more time to stabilize. Medication Change: Yes (trazodone increeased) Medical Record Reviewed: Yes Mental Status Examination - Cognitive Function Orientation: Person, Place, Situation, Time Memory: Intact Attention: WNL Concentration: Poor Association: WNL Fund of Knowledge: WNL Decription of patient's judgement and insights: fair/fair Addtional comments: calm and cooperative - Mood Mood: Depressed, Anxious - Affect Affect: Constricted - Speech Speech: Appropriate - Formal Thought Process Formal Thought Process: No Impairment Psychotic Thoughts and Behaviors: denied - Suicidal Ideation Suicidal Ideation: No Plan: denied - Homicidal Ideation Homicidal Ideation: No Plan: denied Goal/Treatment Plan - Goal/Treatment Plan Need for Continued Stay: Severe depression anxiety, Discharge may exacerbated symptoms, Severe functional impairment Progress Toward Problem(s) and Goals/Treatment Plan: Continue current treatment as per primary team. Psychoeducation provided regarding diagnosis, treatment, meds benefits, side effects, risk and alternative choices. Pt verbalized understanding and agree with the treatment plan. Continue current management and medications. Patient educated about risks, benefits, side effects & alternatives of meds. Pt verbalized understanding & agreed with the above. Therapy in milieu. Estimated Date of D/C: 01/21/18
[2018-01-17] MEDS: Pantoprazole 40 mg EC Tab PO SCH (10:19)
--- NOTE | 2018-01-17 14:22 | PCM.PYCHPN ---
Psychiatric Progress Note - Psychiatric Progress Note Patient seen today, length of contact: 18 min Patient Chief Complaint: "I am anxious" Problems Identified/Issues Discussed: The pt is seen, chart reviewed, case discussed with staff. Support and psychoeducation given, CBT and [place] used briefly No new symptoms reported, improving slowly and needs more time No SEs from medications, risks discussed. After care discussed - wants IOP now He c/o some patients bothering him and he felt like "losing control" or " leaving AMA' He also sometimes gets irate when he talks with ex- How to deal with these discussed Med adjusted, support given Medication Change: Yes (add zyprexa and inderal) Medical Record Reviewed: Yes Mental Status Examination - Cognitive Function Orientation: Person, Place, Situation, Time Memory: Intact Attention: WNL Concentration: Poor Association: WNL Fund of Knowledge: WNL - Mood Mood: Depressed, Anxious - Affect Affect: Constricted - Speech Speech: Appropriate - Formal Thought Process Formal Thought Process: No Impairment - Suicidal Ideation Suicidal Ideation: No - Homicidal Ideation Homicidal Ideation: No Goal/Treatment Plan - Goal/Treatment Plan Need for Continued Stay: Severe depression anxiety, Discharge may exacerbated symptoms, Severe functional impairment Progress Toward Problem(s) and Goals/Treatment Plan: Remeron for depression and insomnia Zyprexa for irritability and AH INderal for anxiety Consider naltrexone for alcohol cravings Support and psychoed Groups and activities CBT and [place] After care - rehab Estimated Date of D/C: 01/21/18
[2018-01-18] MEDS: Pantoprazole 40 mg EC Tab PO SCH (09:43)
--- NOTE | 2018-01-18 14:02 | PCM.PYCHPN ---
Psychiatric Progress Note - Psychiatric Progress Note Patient seen today, length of contact: 18 min Patient Chief Complaint: "I am a little better" Problems Identified/Issues Discussed: The pt is seen, chart reviewed, case discussed with staff. The pt is compliant with medications and reports no side-effects. Symptoms are improving but needs more time to stabilize. After care discussed, support and psychoeducation given. Calmer today, not suicidal - how to prevent discussed Medication Change: No Medical Record Reviewed: Yes Mental Status Examination - Cognitive Function Orientation: Person, Place, Situation, Time Memory: Intact Attention: WNL Concentration: Poor Association: WNL Fund of Knowledge: WNL - Mood Mood: Depressed, Anxious - Affect Affect: Constricted - Speech Speech: Appropriate - Formal Thought Process Formal Thought Process: No Impairment - Suicidal Ideation Suicidal Ideation: No - Homicidal Ideation Homicidal Ideation: No Goal/Treatment Plan - Goal/Treatment Plan Need for Continued Stay: Severe depression anxiety, Discharge may exacerbated symptoms, Severe functional impairment Progress Toward Problem(s) and Goals/Treatment Plan: Remeron for depression and insomnia Zyprexa for irritability and AH INderal for anxiety Consider naltrexone for alcohol cravings Support and psychoed Groups and activities CBT and [place] After care - rehab or IOP Estimated Date of D/C: 01/21/18
[2018-01-19] MEDS: Pantoprazole 40 mg EC Tab PO SCH (09:43)
--- NOTE | 2018-01-19 13:06 | PCM.PYCHPN ---
Psychiatric Progress Note - Psychiatric Progress Note Patient seen today, length of contact: 17 min Patient Chief Complaint: "Tense a little" Problems Identified/Issues Discussed: The pt is seen, chart reviewed, case discussed with staff. Support and psychoeducation given, CBT and [place] used briefly No new symptoms reported, improving slowly and needs more time No SEs from medications, risks discussed. After care discussed - will consider [facility] or [facility] He is on Naltrexone now and has no SEs Medication Change: No Medical Record Reviewed: Yes Mental Status Examination - Cognitive Function Orientation: Person, Place, Situation, Time Memory: Intact Attention: WNL Concentration: Poor Association: WNL Fund of Knowledge: WNL - Mood Mood: Depressed, Anxious - Affect Affect: Constricted - Speech Speech: Appropriate - Formal Thought Process Formal Thought Process: No Impairment - Suicidal Ideation Suicidal Ideation: No - Homicidal Ideation Homicidal Ideation: No Goal/Treatment Plan - Goal/Treatment Plan Need for Continued Stay: Severe depression anxiety, Discharge may exacerbated symptoms, Severe functional impairment Progress Toward Problem(s) and Goals/Treatment Plan: Remeron for depression and insomnia Zyprexa for irritability and AH Inderal for anxiety Naltrexone for alcohol cravings Support and psychoed Groups and activities CBT and [place] After care - rehab or IOP Estimated Date of D/C: 01/20/18 If changed, why: Better
[2018-01-20 06:29] VITALS: BP 111/68; PULSE 59; TEMP 97.2
[2018-01-20] MEDS: Pantoprazole 40 mg EC Tab PO SCH (09:36)
--- NOTE | 2018-01-20 10:09 | PCM.PYCHDC ---
Mental Status Examination - Mental Status Examination Orientation: Person Discharge Summary - Discharge Note Consultations:: List each consultation separately and include: 1. Reason for request. 2. Findings. 3. Follow-up Summary of Hospital Course include:: 1. Description of specific treatment plan utilized for patients during their course of treatmen. 2. Summarize the time- course for resolution of acute symptoms and/or regressed behaviors. 3. Describe issues identified and worked on during hospitalization. 4. Describe medication utilized. 5. Describe medical problems identified and treated. 6. Reassessment of suicide risk Summary of Hospital Course: The pt is seen, chart reviewed. Consult requested for his suicide attempt He is a 37 yo WM, single, unemployed, has 2 children, lives alone in a [address] He has attempted suicide while intoxicated with alcohol. He OD'ed on psych meds and brought to ED and admitted to the hospital. He is known to the sign writer hand from past admissions He states he was depressed bc of family issues. he missed his family on mothers ' day and OD'ed while intoxicated. He used to drink "a lot" but decreased lately. Denies drug use but MJ. Still feels depressed now but denies SI and wants to go to a rehab "to get really well" Past past psych history: He was diagnosed with bipolar disorder, ADHD and had multiple suicide attempts in the past. Family psych history: He doesn't know his family because he was adopted when he was 6 months old. Medical history: He has history of sciatica (nerve pain) and possibly asthma. However, he is stable now. Hospital course: The pt was admitted and started on treatment with psychotherapy, support, psychoeducation and medications. [place] and CBT used. The pt attended groups and activities, as well as milieu therapy. All the risks and benefits of medications are discussed and the patient understood and agreed. The pt improved with the treatments provided. After care discussed with the patient. He will attend [facility] he doesn't have insurance to go to [facility] - Final Diagnosis (DSM 5) Condition upon Discharge: CRITICAL Disposition: HOME/ ROUTINE Follow-up Treatment Plan: Continue below medications after discharge. And get the refill after 2 weeks Follow after care plan as discussed. Use relapse prevention skills Return to ER or call 911 if suicidal, homicidal or symptoms relapse. Stay away from stress, alcohol and drugs. See primary doctor regularly and get labs. Prescriptions/Medication Reconciliation: hydrOXYzine HCl [Atarax] 25 mg PO BID PRN #30 tab PRN Reason: Anxiety Mirtazapine [Remeron] 30 mg PO HS #14 tab Naltrexone [Revia] 50 mg PO DAILY #14 tab OLANZapine [Zyprexa] 10 mg PO HS #14 tab Pantoprazole [Protonix EC Tab] 40 mg PO DAILY #14 ect Propranolol [Inderal] 20 mg PO BID #14 tab traZODone [Desyrel] 100 mg PO HS PRN #14 tab PRN Reason: Insomnia
== END 2018-01-20 12:20 | disposition home or self-care (01) | DRG 917 ==
LOC: C.ER 22:51 → C.9E 01-10 00:01 → C.9I 01-10 03:30 → C.3T 01-12 17:45 → C.5E 01-13 10:51
PROVIDERS: ADMIT Psychiatry & Neurology Psychiatry; ATTEND Psychiatry & Neurology Psychiatry
PROC: 5A1945Z Respiratory Ventilation, 24-96 Consecutive Hours (ICD-10-PCS; principal; 2018-01-10)
PROC: 0BH17EZ Insertion of Endotracheal Airway into Trachea, Via Natural or Artificial Opening (ICD-10-PCS; 2018-01-10)
PROC: HZ52ZZZ Individual Psychotherapy for Substance Abuse Treatment, Cognitive-Behavioral (ICD-10-PCS; 2018-01-10)
PROC: HZ59ZZZ Individual Psychotherapy for Substance Abuse Treatment, Supportive (ICD-10-PCS; 2018-01-10)
PROC: HZ56ZZZ Individual Psychotherapy for Substance Abuse Treatment, Psychoeducation (ICD-10-PCS; 2018-01-10)
PROC: GZHZZZZ Group Psychotherapy (ICD-10-PCS; 2018-01-10)
PROC: GZ58ZZZ Individual Psychotherapy, Cognitive-Behavioral (ICD-10-PCS; 2018-01-10)
PROC: GZ56ZZZ Individual Psychotherapy, Supportive (ICD-10-PCS; 2018-01-10)
DX: T50.992A Poisoning by other drugs, medicaments and biological substances, intentional self-harm, initial encounter (principal); J96.90 Respiratory failure, unspecified, unspecified whether with hypoxia or hypercapnia; R40.20 Unspecified coma; E87.0 Hyperosmolality and hypernatremia; F33.2 Major depressive disorder, recurrent severe without psychotic features; F10.10 Alcohol abuse, uncomplicated; F12.20 Cannabis dependence, uncomplicated; F20.9 Schizophrenia, unspecified; F41.9 Anxiety disorder, unspecified; F90.9 Attention-deficit hyperactivity disorder, unspecified type; G47.00 Insomnia, unspecified; I45.10 Unspecified right bundle-branch block; F17.210 Nicotine dependence, cigarettes, uncomplicated; J45.909 Unspecified asthma, uncomplicated; M54.30 Sciatica, unspecified side; Z91.5 Personal history of self-harm; Y90.6 Blood alcohol level of 120-199 mg/100 ml